=== PATIENT | female | born 1935 | race Caucasian/White ===

== ENCOUNTER 2017-08-28 10:39 | Outpatient (CLI) | payer MEDICARE, OTHER ==
--- NOTE | 2017-08-28 20:40 | PRG ---
DATE OF SERVICE: 08/28/2017 HISTORY: Ms. Josseline Garcia is a very pleasant 82-year-old previously seen [facility] for an ulceration of the left posterior lower leg. The patient was last seen in the [facility] on 2014. The patient now presents with ulcerations of the right and left lower legs. The patient state s that the ulceration of her left lower leg has been present for 2 months. She states that the ulcer ation of her right lower leg has been present for 2 days and began after she bumped her right lower l eg against her walker. The patient has received wound care for her ulcerations by Physical Therapy gisele Espinal at [facility]. The patient states that she will now be receiving assistance with dressi ng changes by Home Health since she has been discharged from [facility]. PHYSICAL EXAMINATION: VITAL SIGNS: Temperature 97.6, pulse 61, respirations 18, blood pressure 172/78. EXTREMITIES: An ulceration of the right lateral lower leg is present, which measures approximately 0 .5 x 0.4 cm. An ulceration of the left lower leg is present, which measures approximately 0.9 x 0.8 cm. Granulation tissue is present within the margins of each wound. Necrotic and nonviable tissue p resent within the margins of each wound was debrided with an excisional full-thickness debridement wi th the use of a curet and scissors. No purulent drainage is associated with either wound. No cellul itis of the right or left lower leg is present. No maceration of the skin of the periwound of either wound is noted. A dorsalis pedis pulse is easily palpable on the right and on the left. Edema of t he right and left lower legs is present on exam today. ASSESSMENT AND PLAN: 1. Chronic venous hypertension with ulcers. Silverlon, Webril, and the 3M Coban two-layer compressi on system will be applied to the right and left feet and lower legs today. Orders will be transmitte d to Home Health for dressing changes of Silverlon, Webril, and the 3M Coban two-layer compression sy stem 1-2 times per week after cleansing and irrigation for the right and left lower leg ulcerations. I will see Ms. Garcia again in 4 weeks if her wounds are still present at this time. 2. Coronary artery disease. 3. Hypertension. 4. Sleep apnea. 5. Asthma/chronic obstructive pulmonary disease. 6. Gout. 7. Atrial fibrillation on chronic anticoagulation. 8. Congestive heart failure.
[2017-08-28] MEDS ORDERED: Sodium Chloride 0.9% 15 ML NEB ONE (21:21)
== END 2017-08-28 10:40 | disposition home or self-care (01) ==
LOC: WCC 10:39
PROVIDERS: ATTEND Family Medicine
DX: I87.312 Chronic venous hypertension (idiopathic) with ulcer of left lower extremity (principal); I25.10 Atherosclerotic heart disease of native coronary artery without angina pectoris; G47.30 Sleep apnea, unspecified; J44.9 Chronic obstructive pulmonary disease, unspecified; M10.9 Gout, unspecified; I48.91 Unspecified atrial fibrillation; I11.0 Hypertensive heart disease with heart failure; I50.9 Heart failure, unspecified; Z79.01 Long term (current) use of anticoagulants
CPT/HCPCS: A4218

== ENCOUNTER 2018-02-27 17:18 | Inpatient (IN) | payer MEDICARE, OTHER ==
[2018-02-27 18:02] LABS: #Eosinphils 0.2 thou/uL (0.0-0.7); #Monocytes 0.6 thou/uL (0.11-0.59); #Neutrophils 4.2 thou/uL (1.40-6.50); %Basophils 0.4 % (0.0-1.0); %Eosinophils 3.3 % (0.0-10.0); %Lymphocytes 16.2 % (21.0-51.0); %Monocytes 9.4 % (0.0-10.0); %Neutrophils 70.6 % (42.0-75.0); Hemoglobin 12.5 g/dL (12.0-16.0); Mean Corpuscular HGB CONC 33.1 g/dL (32.0-36.0); Mean Corpuscular Hemoglobin 32.8 pg (27.0-31.0); Mean Platelet Volume 7.1 fL (7.4-10.4); Platelet Count 192 thou/uL (130-400); RBC Distribution Width 13.9 % (11.5-14.5); Red Blood Cell (RBC) Count 3.82 mill/uL (4.20-5.40)
[2018-02-27 18:20] LABS: Anion Gap 12 mmol/L (10-20); BUN (Urea Nitrogen) 8 mg/dL (9.8-20.1); Calc. Creatinine Clearance 0 mL/min (70-130); Calcium 10.1 mg/dL (7.8-10.44); Carbon Dioxide 24 mmol/L (23-31); Chloride 108 mmol/L (98-107); Estimated GFR-MDRD Greater than 90; Glucose 91 mg/dL (83-110); Potassium 3.8 mmol/L (3.5-5.1); Sodium 140 mmol/L (136-145)
--- NOTE | 2018-02-27 18:20 | RAD ---
RADIOGRAPH CHEST 1 VIEW: Date: 02/27/18 Time: 5:17 p.m. HISTORY: 82-year-old female with cough and chest congestion. COMPARISON: 01/14/15 FINDINGS: Severe cardiomegaly. Tortuosity and ectasia of thoracic aorta. Sternotomy wires. At least two surgica l clips overlying the left side of the cardiac shadow. Previously demonstrated right subclavian centr al venous catheter has been removed. No other interval change. Diffuse mild bilateral pulmonary inte rstitial densities are again noted. These are probably chronic, but it is possible that there could b e acute mild pulmonary interstitial edema superimposed on the chronic changes. The cardiomegaly obscu res the medial aspects of the bilateral lower lung zones. No gross consolidation identified. Effaceme nt of lateral costophrenic angles bilaterally, similar to the prior study, and shaggy bilateral diaph ragmatic borders. No pneumothorax. No major interval change. IMPRESSION: 1. Severe cardiomegaly. 2. Mild bilateral interstitial changes. Uncertain whether chronic, acute interstitial edema, or a combination of both. 3. Ectasia and tortuosity of the thoracic aorta. 4. Bilateral pleural reactions: effusions vs thickening. 5. Findings are similar to 01/14/15. SIS [] POS: LEVI
[2018-02-27] MEDS ORDERED: Nitroglycerin 2% Ointment 1 INCH/1 GM Packet ONE (18:22)
[2018-02-27] MEDS ORDERED: Furosemide 40 MG/4 ML VIAL ONE (18:22)
[2018-02-27 18:24] LABS: Bilirubin Negative (Negative); Blood, Urine Small (Negative); Clarity CLEAR (Clear); Glucose, Urine (Dipstick) Negative (Negative); Leukocyte Moderate (Negative); Nitrite Negative (Negative); Protein, Urine (Dipstick) 100 mg/dL (Neg-Trace); Specific Gravity, Urine 1.015 (1.002-1.036); Urobilinogen 0.2 mg/dL (0.2-1.0); pH, Urine 7.5 (5.0-9.0)
[2018-02-27 18:27] LABS: Bacteria/HPF None Seen HPF (None Seen); Hyaline Casts/LPF 7-10 HYALINE CAST LPF (0-3 Hyaline); RBC/HPF 21-50 HPF (0-3); WBC/HPF 21-50 HPF (0-3)
[2018-02-27 18:38] LABS: Renal Epithelial None Seen HPF (0-3); Transitional Epithelial NONE SEEN HPF (0-3); Yeast-All Forms None Seen HPF (None Seen)
[2018-02-27] MEDS ORDERED: Ciprofloxacin 500 MG TAB ONE (19:43)
[2018-02-27] MEDS ORDERED: hydrALAZINE 20 MG/ML VIAL ONE (19:43)
[2018-02-27] MEDS ORDERED: Acetaminophen 325 MG TAB PO PRN (20:48)
[2018-02-27] MEDS ORDERED: Ondansetron HCl/PF 4 MG/2 ML Vial IVP PRN (20:48)
[2018-02-27] MEDS ORDERED: Cefepime 2 GM in Sodium Chloride 0.9% 100 ML IVPB SCH ×2 (21:00→23:59)
[2018-02-27] MEDS ORDERED: Labetalol HCl 100 MG/20 ML VIAL SLOW IVP PRN (21:27)
[2018-02-27] MEDS ORDERED: Gabapentin 300 MG CAP PO PRN (21:28)
[2018-02-27 21:58] LABS: Troponin I 0.017 ng/mL (< 0.028)
[2018-02-27] MEDS: Guaifenesin DM 100-10/5 ML UDCUP PO PRN (23:40)
--- NOTE | 2018-02-28 01:33 | HP ---
PRIMARY CARE PHYSICIAN: Yamilet Smith DO TIME OF EVALUATION: 08:40 p.m. CODE STATUS: DNR as verified with the patient and family. CHIEF COMPLAINT: Worsening shortness of breath and cough. HISTORY OF PRESENT ILLNESS: An 82-year-old female with past medical history of COPD, asthma, bronchitis, CHF, the patient has had worsening period of persistent cough, that is wet with a scant sputum production, the symptoms have been present for about 3 weeks, she has had three admissions to the hospital as per report to [facility], for diagnosis including pneumonia, UTI. After review of admission, the patient is discharged and returned to the hospital after 24 to 48 hours failing to p.o. antibiotics. The symptoms are severe, the patient has stable vital signs; however, she looks physically tired, and having difficulty to mobilize secretions and stay comfortable. Family members are supported with the last episode of fever was 2 days ago. REVIEW OF SYSTEMS: Constitutional: The patient had fever 2 days ago, chills, generalized weakness, respiratory cough, sputum production, difficulty breathing , especially with cough spells. Cardiovascular: No chest pain, no palpitations , shortness of breath, the blood pressure has been in the high side. Gastrointestinal: No nausea, no vomiting, no diarrhea. Patient reporting that she has had a bloated stomach. Central Nervous System: No dizziness, no headache. Not feeling lightheaded. Genitourinary: The patient reported burning on urination. Extremities: Bilateral leg swelling mostly on the left. All other systems reviewed were negative except for the findings mentioned above. PAST MEDICAL HISTORY: The patient has a history of hypertension, congestive heart failure, atrial fibrillation, hyperlipidemia, obesity, aortic valve stenosis, frequent UTIs. PAST SURGICAL HISTORY: The patient has a history of cataract surgery, colonoscopy., appendectomy, CABG 20 years ago x3 vessels, orthopedic surgery, bilateral knee surgery, tonsillectomy. SOCIAL HISTORY: No alcohol, no drugs, no smoking history. ALLERGIES: ADVIL, DAYPRO, LORAZEPAM, PENICILLIN. FAMILY HISTORY: The patient reported her mother having CHF at the age of 71 and father having coronary artery disease. REPORTED MEDICATIONS: Calcium carbonate 200 mg 1 tablet 3 times a day, acetaminophen 500 mg q.6. hours p.r.n., allopurinol 300 mg once a day, albuterol 90 mcg every 4 hours p.r.n. with budesonide nebulizers 2 times a day, Coenzyme Q10 200 mg orally once a day, Eliquis 5 mg 2 times a day, Vasotec 20 mg once a day, fluoxetine 40 mg once a day, Lasix 40 mg once a day, gabapentin 300 mg once a day in the evening, levofloxacin 750 mg ordered 6 to 21 to take for 5 days, magnesium oxide 400 mg once a day, mupirocin 2% 3 times a day. PHYSICAL EXAMINATION: VITAL SIGNS: On presentation, the patient presented with very high blood pressure systolic over 200. The last hour recorded breathing was 195/81, heart rate 62, respiratory rate was 20, temperature 98.5. GENERAL: Patient is alert, in mild distress due to difficulty breathing, oriented. HEENT: Eyes: Normal conjunctivae. Moist oral mucosae. Anicteric. NECK: Bilateral JVD. RESPIRATORY: The patient has bilateral rales, wheezing. Symmetric expansion. CARDIOVASCULAR: Normal rate, hypertension, aortic murmur. EXTREMITIES: Bilateral leg edema. ABDOMEN: Soft. Normal bowel sounds. MUSCULOSKELETAL: Baseline range of motion and strength. No tenderness. SKIN: Warm and intact. No pallor, no rash, no redness. NEUROLOGIC: Baseline sensorium. No evidence of any new focal weakness. Baseline speech. Cranial nerves sensory intact. PSYCHIATRIC: Good mood, shady. Oriented, optimal judgment. LABORATORY AND DIAGNOSTIC DATA: Reviewed. The patient has a white count of 6.0 , hemoglobin 12.5, MCV 99, platelet count 192,000. Sodium 140, potassium 3.8, chloride 108, carbon dioxide 24, anion gap 12, BUN 8, GFR 90. Beta natriuretic peptide now 112. Urine was positive with white count 21-50. EKG was discussed with performing physician from ER and it showed RVVV, atrial fibrillation with controlled ventricular response on the rate of 87, no evidence of any acute ischemic event. Chest x-ray was reviewed, the patient has cardiomegaly with signs of congestion. ASSESSMENT AND PLAN: 1. Urinary tract infection, UA is positive, it looks like this is a recurrent problem, we will send cultures, start the patient on IV antibiotics, we will adjust treatment depending on sensitivity. We will not use Levaquin since patient was on that treatment prior to discharge and seemed to have remained the same. 2. Acute congestive heart failure exacerbation, we will place the patient on diuretics, reconsult home medications. Breathing treatment for symptoms improvement. 3. Physical deconditioning, likely secondary to congestive heart failure exacerbation and recurrent admissions, he is unsafe to discharge this patient at this point, we will order physical therapy for evaluation and treatment, patient may benefit from rehabilitation if she qualifies for it. 4. History of atrial fibrillation, heart rate is controlled, we are going to start home medications, tolerating anticoagulation. 5. History of hyperlipidemia, low cholesterol diet is advised. 6. Hypertensive urgency. No evidence of any acute organ damage, reconcile home medications, adjust as needed. IV p.r.n. medication for optimal control. 7. Obesity, advised to lose weight. 8. Deep venous thrombosis prophylaxis. Patient has reported that she had been offered aortic valve replacement in the past, our echo in the system is only showing mild aortic stenosis, with request records from [facility] to further address this problem, if no echo has been done recently, might be repeated. DEVON
[2018-02-28 05:25] LABS: #Eosinphils 0.2 thou/uL (0.0-0.7); #Lymphocytes 0.4 thou/uL (1.20-3.40); #Monocytes 0.2 thou/uL (0.11-0.59); #Neutrophils 8.6 thou/uL (1.40-6.50); %Eosinophils 1.7 % (0.0-10.0); %Lymphocytes 3.8 % (21.0-51.0); %Monocytes 2.2 % (0.0-10.0); %Neutrophils 92.3 % (42.0-75.0); Hemoglobin 13.3 g/dL (12.0-16.0); Mean Corpuscular HGB CONC 31.7 g/dL (32.0-36.0); Mean Corpuscular Hemoglobin 31.9 pg (27.0-31.0); Mean Platelet Volume 7.6 fL (7.4-10.4); Platelet Count 209 thou/uL (130-400); RBC Distribution Width 14.1 % (11.5-14.5); Red Blood Cell (RBC) Count 4.16 mill/uL (4.20-5.40); White Blood Cell (WBC) Count 9.3 thou/uL (4.8-10.8)
[2018-02-28 05:43] LABS: Anion Gap 14 mmol/L (10-20); BUN (Urea Nitrogen) 9 mg/dL (9.8-20.1); Calc. Creatinine Clearance 100 mL/min (70-130); Calcium 10.2 mg/dL (7.8-10.44); Carbon Dioxide 24 mmol/L (23-31); Chloride 107 mmol/L (98-107); Estimated GFR-MDRD Greater than 90; Glucose 94 mg/dL (83-110); Potassium 3.8 mmol/L (3.5-5.1); Sodium 141 mmol/L (136-145)
[2018-02-28] MEDS ORDERED: Sodium Chloride 0.9% 10 ML ONE (07:39)
[2018-02-28] MEDS ORDERED: Furosemide 40 MG/4 ML VIAL SLOW IVP SCH ×2 (07:45→09:00)
[2018-02-28 07:55] LABS: pH, Arterial 7.47 (7.35-7.45)
[2018-02-28 07:56] LABS: Actual Bicarbonate (HCO3a) 26.2 mEq/L (22-28); Base Excess (BEa) 2.6 mEq/L (-2.0 to +3.0); CO2 Tension 37.3 mmHg (35.0-45.0); Hemoglobin (Hb) 13.4 g/dL (12.0-16.0); O2 Tension (PaO2) 66.1 mmHg (> 60.0)
[2018-02-28 07:57] LABS: Calcium, Ionized 1.3 mmol/L (1.12-1.30); Puncture Site LRA
--- NOTE | 2018-02-28 08:31 | RAD ---
SINGLE VIEW CHEST: Date: 02/28/18 COMPARISON: 02/27/18. HISTORY: Congestive heart failure. FINDINGS: Single view of the chest shows an enlarged but stable cardiomediastinal silhouette. The patient is st atus post sternotomy. Increased interstitial lung markings are present. There is no evidence of conso lidation, mass, or pleural effusions. Degenerative changes and vertebroplasty cement are seen in the spine. IMPRESSION: Cardiomegaly without evidence of acute cardiopulmonary disease. POS: MANDEEPH
[2018-02-28] MEDS: Potassium Chloride 20 MEQ TAB PO SCH ×2 (09:40→21:52)
[2018-02-28] MEDS: Magnesium Oxide 400 MG TAB PO SCH (09:40)
[2018-02-28] MEDS: predniSONE 20 MG TAB PO SCH (09:41)
[2018-02-28] MEDS: FLUoxetine HCl 20 MG CAP PO SCH (09:41)
[2018-02-28] MEDS: Apixaban 5 MG TAB PO SCH ×2 (09:41→21:50)
[2018-02-28] MEDS: Fenofibrate Nanocrystallized 145 MG TAB PO SCH (09:42)
[2018-02-28] MEDS: Allopurinol 300 MG TAB PO SCH (09:42)
[2018-02-28] MEDS: Furosemide 40 MG/4 ML VIAL SLOW IVP SCH ×2 (09:43→21:51)
[2018-02-28] MEDS: Cefepime 2 GM in Sodium Chloride 0.9% 100 ML IVPB SCH ×2 (12:53→23:34)
--- NOTE | 2018-02-28 13:07 | PRG ---
DATE OF SERVICE: 02/28/2018 SUBJECTIVE: The patient is seen and examined at bedside. I was called this morning because of her s hortness of breath, she complains about. She denies any chest pain. She denies any chills. OBJECTIVE: VITAL SIGNS: Blood pressure is 178/74, pulse is 81, temperature is 98.6, respiratory rate 24, and pu lse oximetry is 99% on 2 liters by nasal cannula. HEENT: Head is atraumatic, normocephalic. Eyes are PERRLA. NECK: Supple. JVD plus. LUNGS: Breath sounds diminished at both bases with crackles bilaterally. HEART: S1, S2, somewhat distant. There is a systolic murmur 3/6 mostly audible at the right sternal border. ABDOMEN: Soft. Nontender. Bowel sounds are present, no organomegaly. EXTREMITIES: 1+ peripheral edema similar bilaterally. NEUROLOGIC: She is alert and oriented. She follows my commands. She moves all 4 extremities. LABORATORY DATA: Showed white count of 9.3, hemoglobin 13.3, platelet 209, hematocrit 41.9. ABGs sh owed pH of 7.47, pCO2 37, pO2 of 66.1. Chemistry showed normal electrolytes, creatinine of 0.56, BUN 9, glucose 94. Troponin 0.017. BNP from yesterday was 912. Microbiology: Blood cultures negative to date. IMPRESSION: 1. Increased shortness of breath, most likely multifactorial. There is some congestive heart failur e component and chronic obstructive pulmonary disease component, also she has quite severe aortic dorcas nosis. 2. History of atrial fibrillation. 3. Hypertension. 4. Hyperlipidemia. 5. Possible urinary tract infection. DISCUSSION: At this point, we are going to continue her antibiotic for presumed urinary tract infect ion. We do not have any urine cultures back. We will use more Lasix 40 mg twice a day. We will obt ain the chest x-ray. Get Cardiology and ceramic tile installer involved in her care. We will continue her Du oNebs. She is still hypoxic on 2 liters by nasal cannula, so we will increase the dose at the rate t o 3 liters. We will continue supportive care.
--- NOTE | 2018-02-28 14:34 | CON ---
DATE OF CONSULTATION: 02/28/2018 HISTORY OF PRESENT ILLNESS: The patient is an 82-year-old woman with a history of coronary bypass surgery and severe aortic stenosis, who presents for evaluation of recurrent dyspnea. The patient underwent coronary artery bypass graft surgery in 2005. She had a DAVISON placed to LAD, saphenous vein graft to an OM and RCA. The patient has developed a slowly progressive aortic stenosis. She also has a history of atrial fibrillation. The patient has undergone an evaluation for possible TAVR in [place]. The patient has declined to undergo this procedure. She has recently developed progressive dyspnea. She was hospitalized at [facility] several times with urinary tract infections. She recently was sent home with a Bishop catheter. She went home,and became dyspneic and presented with recurrent shortness of breath. The patient denies having any chest discomfort. PAST MEDICAL HISTORY: 1. Coronary artery disease. 2. Congestive heart failure. 3. Aortic stenosis. 4. Chronic atrial fibrillation. 5. Hypertension. 6. Obesity. 7. Hypertension. 8. Recurrent urinary tract infections. PAST SURGICAL HISTORY: Coronary artery bypass surgery, tonsillectomy, knee surgery. ALLERGIES: LORAZEPAM and PENICILLIN. SOCIAL HISTORY: Nonsmoker. MEDICATIONS: See nursing list. REVIEW OF SYSTEMS: Noticeable for increasing weakness, recurrent urinary tract infections, and progressive dyspnea. Ten-point system, otherwise, unremarkable. PHYSICAL EXAMINATION: GENERAL: This is an obese woman in mild distress. VITAL SIGNS: Blood pressure 178/74. NECK: Full. LUNGS: Have a few crackles bilateral. HEART: Irregular rate and rhythm, normal S1 and S2 with a 3/6 systolic murmur. ABDOMEN: Distended. EXTREMITIES: Showed trace edema. LABORATORY RESULTS: Her sodium is 141, potassium 3.8, chloride 107, bicarbonate 24, BUN 9, creatinine is 0.56. Her troponin was 0.017. White blood cell count is 9.3, hemoglobin 13.3, hematocrit 41.9, platelets 209. Her EKG revealed her to have atrial fibrillation with a right bundle branch block. IMPRESSION: 1. Congestive heart failure. 2. Critical aortic stenosis. 3. History of coronary artery bypass surgery x3. 4. Hypertension. 5. Chronic atrial fibrillation. 6. Obesity. 7. Recurrent urinary tract infections. 8. Dyslipidemia. This patient presents with congestive heart failure. She has declined to undergo a transcatheter aortic valve replacement. I again highly recommend she undergo this procedure. She is not an appropriate patient until her urinary tract infections have resolved. I have discussed her case with Dr. Jolly, who will hopefully guide her in treatment on for her urinary tract infection. If the urinary tract infection resolved, then hopefully she will reconsider and agree to proceed with transcatheter aortic valve replacement. The patient's prognosis is very guarded. DEVON
--- NOTE | 2018-02-28 20:03 | CON ---
DATE OF CONSULTATION: 02/28/2018 SERVICE: Pulmonary Medicine. REASON FOR CONSULTATION: Respiratory failure. HISTORY OF PRESENT ILLNESS: The patient is an 82-year-old white female with past medical history significant for severe to critical aortic stenosis. This was identified many years ago and followed for a period of time. She was recommended to undergo a valve surgery roughly a year ago. She did not want to pursue it at that time because she had some friends that had from valve surgery. Roughly one month ago, she started having increasing dyspnea on exertion. She uses CPAP at night and so she did not go on to develop the classic orthopnea type features associated with heart failure. She has been having severe leg swellings. In the past 4 weeks, she has been hospitalized on 5 separate occasions, both here and at [facility]. Along the way, they have treated her for pneumonia and discovered bacteria in her urine. That being said, at no point as she had a convincing infectious profile with fevers, purulent sputum production, or night sweats. Last night, she once again came into the hospital with difficulty breathing. Her blood pressures were quite elevated. She developed a flash pulmonary edema type picture. She has some difficulty breathing and was given a dose of Lasix. Overnight, she has made a profound recovery. The patient has been treated on and off for asthma her entire adult life. That being said, she has never really demonstrated convincing evidence to suggest that she needs to be on a daily inhaled medication. The last pulmonary function studies that she had were 6 weeks ago. I do not have the results of those for review because they were done in May in preparation for a possible valve surgery. PAST MEDICAL HISTORY: 1. Aortic stenosis, severe. 2. Hypertension. 3. Atrial fibrillation. 4. Dyslipidemia. 5. Obesity. 6. Obstructive sleep apnea. PAST SURGICAL HISTORY: 1. Cataract surgery. 2. Colonoscopy. 3. Appendectomy. 4. Coronary artery bypass graft in 1997, x3 vessels. 5. Knee surgeries, bilateral. 6. Tonsillectomy. ALLERGIES: ADVIL, LORAZEPAM, PENICILLIN, and DAYPRO. MEDICATIONS: List of her inpatient medications were reviewed. No specific updates were made at this time. SOCIAL HISTORY: Negative for alcohol, tobacco, or illicit drug use. She has no exposure to chemicals, dust, asbestos, or tuberculosis, currently. FAMILY HISTORY: Noncontributory. REVIEW OF SYSTEMS: General, head, ears, eyes, nose, throat, cardiovascular, respiratory, GI, , musculoskeletal, neurologic, and skin is negative except as mentioned in the HPI. PHYSICAL EXAMINATION: VITAL SIGNS: Afebrile, pulse 61, blood pressure 178/74, respirations 24, and saturation 100% on 2 liters nasal cannula. GENERAL: The patient is awake and alert. She is in no apparent distress. LUNGS: Excellent air entry. There is not really a prolonged expiratory phase, but I hear coarse wheezing and rhonchi. There is also bibasilar crackles present, which are more predominantly displayed in the right. HEART: Normal rate, regular. ABDOMEN: Soft, nontender, nondistended. Bowel sounds are positive. MUSCULOSKELETAL: No cyanosis or clubbing. She has got 2 to 3+ pitting in the bilateral lower extremities. GENITOURINARY: Bishop catheter in place. NEUROLOGIC: Grossly nonfocal. LABORATORY DATA: WBC 9.3, hemoglobin 13.3, platelets 209,000. PH 7.47, pCO2 of 37, pO2 of 66, on 28% FiO2 delivered via nasal cannula at that time. Basic metabolic profile is essentially unremarkable with a creatinine of 0.56. BNP 912, which is an historic high for her. Urinalysis is essentially unremarkable except for some red blood cells and white blood cells. Leukocyte esterase is moderately positive, but nitrites are unremarkable. There is no bacteria that were identified. Blood cultures x2 are negative to date. IMAGING DATA: Chest x-ray demonstrates cardiomegaly without evidence of acute cardiopulmonary abnormality. ASSESSMENT: 1. Acute hypoxic respiratory failure. 2. Acute diastolic and valvular heart failure. 3. Critical aortic stenosis. 4. Obstructive sleep apnea, compliant with CPAP therapy. DISCUSSION AND PLAN: I agree with diuresing the patient down to euvolemia. I see no convincing evidence that the patient has an acute infectious disease. That being said, it is reasonable to continue our empiric antibiotics while we await some cultures. If they are negative at 48 hours, I would recommend deescalating. I will continue scheduled DuoNebs for the time being. She is currently being treated for a COPD and/or asthma exacerbation. During this hospital stay, the patient really needs to decide whether or not she wants to pursue replacement of the aortic valve, or go home with hospice. Splitting the difference does not make much sense. I discussed this with the patient at bedside today. She is going to discuss with her family moving forward and decide truthfully what she wants to do. She understands that it is our job to support that decision whatever it happens to be. Pulmonary Critical Care will continue to follow along. 70 minutes have been devoted to this patient in various activities. I personally reviewed all imaging studies and laboratory data noted within this document. For fifty percent of this time, I was interacting with the patient at the bedside or coordinating care with the care team. For the remainder of the time I was immediately available to the patient in the hospital unit. DEVON
[2018-02-28] MEDS: Rosuvastatin 5 MG TAB PO SCH (21:51)
[2018-02-28] MEDS: HYDROcodone/Acetaminophen 10/325 mg Tablet PO PRN (22:19)
--- NOTE | 2018-03-01 06:31 | CON ---
DATE OF CONSULTATION: 02/28/2018 REASON FOR CONSULTATION: Concern with recurring urinary tract infections and planned aortic valve intervention. 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 In October, she had an episode of influenza A and she was admitted 2 or 3 times with sepsis, elevated lactate, tachycardia, some hypotension. One episode that was normal. Urinalysis with positive urine culture, the remainder episodes of urine cultures were negative. She had infiltrates, and in one of the episodes, there was evidence of cellulitis in the left lower extremity. The patient was always given the antimicrobial therapy with improvement and then released, and at this time, she is admitted with worsening dyspnea. Just following recent discharge from [facility], she developed persistence of cough and reportedly had some temperature elevation and chills 2 days before this admission. No headaches, no change in visual symptoms, sore throat, odynophagia , dysphagia. No chest pain, no abdominal pain, no diarrhea. She did have diarrhea previously, but C. diff test done was negative at beginning of this year. Bilateral lower extremity swelling. PAST MEDICAL HISTORY: Hypertension, CHF with severe aortic stenosis, prior episode of MRSA, endocarditis diagnosed via ANA and positive blood cultures, frequent urinary tract infections, at least abnormal urinalysis with positive cultures. She does have bladder prolapse and uterine prolapse, atrial fibrillation with Watchman procedure. PAST SURGICAL HISTORY: Includes cataract operation, colonoscopy, appendectomy, bypass graft surgery many years ago, orthopedic surgery with bilateral knee replacements. SOCIAL HISTORY: Never smoker, no alcoholic beverage. ALLERGIES: PENICILLIN, LORAZEPAM. FAMILY HISTORY: CHF, coronary artery disease. MEDICATIONS AT HOME: Calcium carbonate, acetaminophen, allopurinol, albuterol, budesonide, coenzyme Q, Eliquis, Vasotec, fluoxetine, Lasix, gabapentin, and had been taking levofloxacin. PHYSICAL EXAMINATION: VITAL SIGNS: Here in the hospital, T-max 98.6, and in the emergency room, the vital signs demonstrated a BP 195/81, pulse 63, temperature 98.5, O2 saturation 98%. SKIN: Remarkable for area of intergluteal erythema without obvious ulceration and the patient has a peripheral IV access. No pacemaker and she has a Bishop catheter inserted during this admission. HEENT: Ocular movements are conjugate. No periorbital edema. Oral cavity moist. NECK: Supple, without jugular distention. LUNGS: With symmetric air entry with faint basilar crackles. Systolic ejection murmur 2/6. HEART: S1, S2 with irregular rate. ABDOMEN: Soft, not distended or tender. No ascites. No bladder distention. EXTREMITIES: No joint inflammatory activity. She is able to move extremities, but she is diffusely weak. Plantar responses are indifferent. Pulses are 1+ in dorsalis pedis. NEUROLOGIC: She is awake, oriented, follows commands. LABORATORY DATA: White cell count 6.0 and 9.3, hemoglobin 12.5, platelets 192, 70% neutrophils and now 92% neutrophils. ABG, pH 7.47, pCO2 of 37, pO2 of 66. Chemistry with a sodium 141, creatinine 0.56. BNP 912. Urinalysis, 21-50 wbc's , 100 protein. We have a urine culture from 10/2016 and there are 2 sets of blood culture obtained on this admission, which are negative thus far. I do not see a urine culture submitted. ASSESSMENT: 1. Severe aortic stenosis, history of atrial fibrillation, prior Watchman procedure on chronic Eliquis, gout on chronic allopurinol, history of recurring episodes of cystitis in the past, bladder prolapse, uterine prolapse, prior cystoscopies without any significant findings. No evidence of nephrolithiasis. 2. 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 3. Persistent dyspnea and other respiratory symptoms. DISCUSSION: During the last 2 or 3 admissions at [facility] pt had negative urine cultures and the admissions were associated with respiratory symptoms, some transient temperature elevation during the first day of admission without persistence. The reports at [facility] identified pneumonia, UTI and cellulitis as the diagnoses. At this point, we do not have confirmatory evidence to suggest that she has an invasive urinary tract infection. We will need to verify that she has a normal post-void residuals after removal of Bishop catheter. She seems to be incontinent at home and may have high residuals or not. The presence of pyuria and bacteriuria per se are not necessarily an indication for antimicrobial therapy and she may have received excessive administration of antimicrobial therapy in the past for conditions which might have been secondary to alternate diagnoses. In terms of the management of perioperative risk of infection and cardiovascular procedures , there is not a consensus that antimicrobial therapy is helpful in prevention of infection following cardiovascular procedures in patients with bacteriuria. The evidence in fact seems to point to the finding that treating those cases does not reduce the infectious complications of cardiovascular procedures, in other words, the bacteria found in those patients does not lead to perioperative infections in patients who undergo valvular interventions. In this regard, I would evaluate her urinary findings and treat them only if there is evidence of any invasive process that is specifically patient has fever, leukocytosis, symptoms and signs of cystitis or pyelonephritis which she does not present at this point in time. DEVON
[2018-03-01] MEDS: Furosemide 40 MG/4 ML VIAL SLOW IVP SCH ×2 (10:21→21:35)
[2018-03-01] MEDS: Apixaban 5 MG TAB PO SCH ×2 (10:21→21:34)
[2018-03-01] MEDS: Magnesium Oxide 400 MG TAB PO SCH (10:22)
[2018-03-01] MEDS: Allopurinol 300 MG TAB PO SCH (10:22)
[2018-03-01] MEDS: FLUoxetine HCl 20 MG CAP PO SCH (10:22)
[2018-03-01] MEDS: predniSONE 20 MG TAB PO SCH (10:22)
[2018-03-01] MEDS: Potassium Chloride 20 MEQ TAB PO SCH ×2 (10:22→21:34)
[2018-03-01] MEDS: Fenofibrate Nanocrystallized 145 MG TAB PO SCH (10:23)
[2018-03-01] MEDS: Cefepime 2 GM in Sodium Chloride 0.9% 100 ML IVPB SCH ×2 (11:53→23:51)
[2018-03-01] MEDS ORDERED: hydrALAZINE 20 MG/ML VIAL SLOW IVP PRN (12:08)
--- NOTE | 2018-03-01 12:39 | PDOC.CTH ---
<ShelliedanyLynette Lexie - Last Filed: 03/01/18 12:43> Cardiology Progress Note - Subjective Patient SOB, but stable. No new issues. - ROS shortness of breath - Objective Vital Signs Temp Pulse Resp BP BP Pulse Ox 03/01/18 10:41 72 18 97 03/01/18 10:21 154/109 H 03/01/18 07:34 70 20 96 03/01/18 07:20 98.2 F 76 16 154/109 H 95 03/01/18 03:13 98.2 F 70 14 165/83 H 99 03/01/18 03:12 65 20 95 03/01/18 01:14 86 19 132/87 94 L 03/01/18 01:07 93 L Weight 186 lb 3.2 oz 02/28/18 03/01/18 03/02/18 06:59 06:59 06:59 Intake Total 460 1080 Output Total 425 2150 Balance 35 -1070 - Physical Examination General/Neuro: alert & oriented x3, NAD Neck: no JVD present Lungs: CTA Heart: other: (IRR) Abdomen: NT/ND Extremities: other: (no edema) - Telemetry Telemetry Rhythm: AFib - Labs Result Diagrams: 02/28/18 04:46 02/28/18 04:46 Troponin/CKMB Troponin I 0.017 ng/mL (< 0.028) 02/27/18 21:14 - Assessment/Plan 1. Critical 2. Chronic AF s/p Watchman and subsequent coilin 12/2016 and 04/2017. Remains on Eliquis 3. Recurrent UTIs Discussed case with patient and family. She is reconsidering TAVR in [place]. At this time will continue to treat acute symptoms and let ID treat UTI. <Nathan Purdy - Last Filed: 03/01/18 15:42> Cardiology Progress Note - Objective Vital Signs Temp Pulse Resp BP BP Pulse Ox 03/01/18 14:07 75 16 97 03/01/18 13:50 73 147/65 H 03/01/18 11:50 97.4 F L 72 18 188/79 H 03/01/18 10:41 72 18 97 03/01/18 10:21 154/109 H 03/01/18 08:02 98.2 F 75 16 95 03/01/18 07:34 70 20 96 03/01/18 07:20 98.2 F 76 16 154/109 H 95 Weight 186 lb 3.2 oz 02/28/18 03/01/18 03/02/18 06:59 06:59 06:59 Intake Total 460 1080 Output Total 425 2150 Balance 35 -1070 - Labs Result Diagrams: 02/28/18 04:46 02/28/18 04:46 Troponin/CKMB Troponin I 0.017 ng/mL (< 0.028) 02/27/18 21:14 - Assessment/Plan Pt seen and examined. Agree with the above. At this point, will need to address acute condition. May require skilled facility to increase mobility and strength.
[2018-03-01] MEDS ORDERED: cloNIDine 0.1 MG TAB PO PRN (12:57)
--- NOTE | 2018-03-01 15:20 | PDOC.PN ---
- Subjective Encounter Start Date: 03/01/18 Encounter Start Time: 09:40 Pt seen for followup re: UTI. Denies chest pain. Shortness of breath is better. No nausea or vomiting. No fevers. - Objective Vital Signs & Weight: Vital Signs (12 hours) Temp Pulse Resp BP BP Pulse Ox 03/01/18 14:07 75 16 97 03/01/18 13:50 73 147/65 H 03/01/18 11:50 97.4 F L 72 18 188/79 H 03/01/18 10:41 72 18 97 03/01/18 10:21 154/109 H 03/01/18 07:34 70 20 96 03/01/18 07:20 98.2 F 76 16 154/109 H 95 Weight Weight 186 lb 3.2 oz I&O: 02/28/18 03/01/18 03/02/18 06:59 06:59 06:59 Intake Total 460 1080 Output Total 425 2150 Balance 35 -1070 Result Diagrams: 02/28/18 04:46 02/28/18 04:46 Phys Exam - Physical Examination Constitutional: NAD HEENT: moist MMs, sclera anicteric, oral pharynx no lesions, 2+ tonsils Neck: no nodes, supple, full ROM JVD Respiratory: no wheezing, no rhonchi Ho crackles Cardiovascular: no rub, irregular S1, S2 Musculoskeletal: edema present Neurological: moves all 4 limbs Psychiatric: normal affect, A&O x 3 Dx/Plan (1) UTI (urinary tract infection) Status: Acute Comment: Continue IV cefepime, await cultures (2) CHF exacerbation Code(s): I50.9 - HEART FAILURE, UNSPECIFIED Status: Acute Qualifiers: Heart failure type: diastolic Qualified Code(s): I50.33 - Acute on chronic diastolic (congestive) heart failure Comment: continue IV furosemide. Pt is in a negative fluid balance (3) Aortic stenosis Code(s): I35.0 - NONRHEUMATIC AORTIC (VALVE) STENOSIS Status: Chronic Comment: plan for TAVR in [place] (4) HTN (hypertension) Code(s): I10 - ESSENTIAL (PRIMARY) HYPERTENSION Status: Chronic Comment: Monitor vital signs, titrate antihypertensives as needed (5) Dyslipidemia Code(s): E78.5 - HYPERLIPIDEMIA, UNSPECIFIED Status: Chronic Comment: continue statin - Plan * . Review of Systems - Review of Systems Constitutional: negative: fever, chills, sweats, weakness, malaise Respiratory: Shortness of Breath, SOB with Excertion. negative: Cough, Pleuritic Pain, Wheezing Cardiovascular: orthopnea. negative: chest pain, palpitations, paroxysmal nocturnal dyspnea, edema, light headedness Gastrointestinal: negative: Nausea, Vomiting, Abdominal Pain, Diarrhea, Constipation, Melena, Hematochezia Genitourinary: negative: Dysuria, Frequency, Incontinence, Hematuria, Retention Skin: negative: Rash, Lesions, Yomi, Bruising - Medications/Allergies Allergies/Adverse Reactions: Allergies Allergy/AdvReac Type Severity Reaction Status Date / Time hydralazine Allergy Severe Short of Verified 03/01/18 12:58 Breath ibuprofen [From Advil] Allergy Verified 02/28/18 00:18 lorazepam [From Ativan] Allergy Verified 02/28/18 00:18 oxaprozin [From Daypro] Allergy Verified 02/28/18 00:18 Penicillins Allergy Verified 02/28/18 00:18 Medications: Current Medications Acetaminophen (Tylenol) 650 mg PO Q4H PRN PRN Reason: Headache/Fever or Pain Hydrocodone Bitart/Acetaminophen ([place] 10/325) 1 tab PO Q6H PRN PRN Reason: Pain 7-10 Last Admin: 02/28/18 22:19 Dose: 1 tab Albuterol/Ipratropium (Duoneb) 3 ml NEB [id number] [facility] Last Admin: 03/01/18 14:07 Dose: 3 ml Allopurinol (Zyloprim) 300 mg PO QAM [facility] Last Admin: 03/01/18 10:22 Dose: 300 mg Apixaban (Eliquis) 5 mg PO BID [facility] Last Admin: 03/01/18 10:21 Dose: 5 mg Clonidine (Catapres) 0.1 mg PO Q4H PRN PRN Reason: SBP Greater Than 170 Enalapril Maleate (Vasotec) 20 mg PO BID [facility] Last Admin: 03/01/18 10:21 Dose: 20 mg Fenofibrate (Tricor) 145 mg PO DAILY [facility] Last Admin: 03/01/18 10:23 Dose: 145 mg Fluoxetine HCl (Prozac) 40 mg PO QAM [facility] Last Admin: 06/23/18 10:22 Dose: 40 mg Furosemide (Lasix) 40 mg SLOW IVP BID [facility] Last Admin: 03/01/18 10:21 Dose: 40 mg Gabapentin (Neurontin) 300 mg PO BID PRN PRN Reason: Pain 4-6 Guaifenesin/Dextromethorphan (Robitussin Dm) 15 ml PO Q4H PRN PRN Reason: Cough Last Admin: 02/27/18 23:40 Dose: 15 ml Cefepime HCl 2 gm/ Sodium (Chloride) 100 mls @ 200 mls/hr IVPB 1200,2359 [facility] Last Admin: 03/01/18 11:53 Dose: 100 mls Labetalol HCl (Normodyne) 10 mg SLOW IVP Q4H PRN PRN Reason: SBP Greater Than 180 Magnesium Oxide (Magnesium Oxide) 400 mg PO QAM [facility] Last Admin: 03/01/18 10:22 Dose: 400 mg Ondansetron HCl (Zofran) 4 mg IVP Q6H PRN PRN Reason: Nausea/Vomiting Pantoprazole Sodium (Protonix) 40 mg PO DAILY [facility] Last Admin: 03/01/18 10:22 Dose: 40 mg Potassium Chloride (K-Dur) 20 meq PO BID [facility] Last Admin: 03/01/18 10:22 Dose: 20 meq Prednisone (Prednisone) 40 mg PO QAM-WM [facility] Last Admin: 03/01/18 10:22 Dose: 40 mg Rosuvastatin Calcium (Crestor) 5 mg PO HS [facility] Last Admin: 02/28/18 21:51 Dose: 5 mg
[2018-03-01] MEDS ORDERED: Acetaminophen 500 MG TAB PO PRN (15:25)
[2018-03-01] MEDS ORDERED: Guaifenesin DM 100-10/5 ML UDCUP PO PRN (15:25)
[2018-03-01] MEDS ORDERED: Albuterol Sulfate 1.25 MG/3 ML NEB NEB PRN (15:25)
[2018-03-01] MEDS: Budesonide 0.5 MG/2 ML NEB NEB SCH (18:26)
--- NOTE | 2018-03-01 19:11 | PRG ---
DATE OF SERVICE: 03/01/2018 SERVICE: Pulmonary Medicine. INTERVAL HISTORY: The patient is doing great from a respiratory standpoint. She denies any current shortness of breath or chest discomfort. She was able to sit on the side of the bed during lunch tod ay. She actually walked to the door and back with some assistance. Otherwise, there has been no int erval change to her condition. PHYSICAL EXAMINATION: VITAL SIGNS: Afebrile, pulse 75, blood pressure 177/81, respirations 16, saturation 97% on 2 liters nasal cannula. GENERAL: The patient is awake, alert, in no apparent distress. LUNGS: Decent air entry. Dependent crackles are minimal. No prolonged expiratory phase or wheezing is appreciated. HEART: Normal rate, regular. ABDOMEN: Soft, nontender and nondistended. Bowel sounds are positive. MUSCULOSKELETAL: No cyanosis or clubbing. No pitting in the bilateral lower extremities. NEUROLOGIC: Grossly nonfocal. ASSESSMENT: 1. Acute hypoxic respiratory failure. 2. Acute diastolic and valvular heart failure. 3. Critical aortic stenosis. 4. Obstructive sleep apnea, compliant with CPAP therapy. DISCUSSION AND PLAN: We can continue to diurese the patient to euvolemia. I will repeat laboratorie s tomorrow morning including electrolytes with magnesium. I will increase the patient's mobility as much as she can tolerate. Hopefully, we will get her tuned up to the point where she can pursue a va lvular procedure in the outpatient setting.
[2018-03-01] MEDS: Mupirocin 2% Ointment 22 GM Tube TOP SCH (21:33)
[2018-03-01] MEDS: Rosuvastatin 5 MG TAB PO SCH (21:35)
[2018-03-01] MEDS: HYDROcodone/Acetaminophen 10/325 mg Tablet PO PRN (21:43)
[2018-03-02 06:00] LABS: Anion Gap 11 mmol/L (10-20); BUN (Urea Nitrogen) 12 mg/dL (9.8-20.1); Calc. Creatinine Clearance 90 mL/min (70-130); Calcium 9.2 mg/dL (7.8-10.44); Carbon Dioxide 29 mmol/L (23-31); Chloride 106 mmol/L (98-107); Estimated GFR-MDRD 90; Glucose 85 mg/dL (83-110); Magnesium 1.7 mg/dL (1.6-2.6); Potassium 4.1 mmol/L (3.5-5.1); Sodium 142 mmol/L (136-145)
[2018-03-02] MEDS: Budesonide 0.5 MG/2 ML NEB NEB SCH ×2 (07:13→19:21)
[2018-03-02] MEDS: Furosemide 40 MG/4 ML VIAL SLOW IVP SCH ×2 (09:15→21:19)
[2018-03-02] MEDS: Polyethylene Glycol 3350 17 GM Packet PO SCH (09:15)
[2018-03-02] MEDS: predniSONE 20 MG TAB PO SCH (09:15)
[2018-03-02] MEDS: Fenofibrate Nanocrystallized 145 MG TAB PO SCH (09:16)
[2018-03-02] MEDS: Oxybutynin 5 MG TAB PO SCH (09:16)
[2018-03-02] MEDS: Magnesium Oxide 400 MG TAB PO SCH (09:16)
[2018-03-02] MEDS: FLUoxetine HCl 20 MG CAP PO SCH (09:16)
[2018-03-02] MEDS: Allopurinol 300 MG TAB PO SCH (09:17)
[2018-03-02] MEDS: Lactinex Tablet PO SCH (09:17)
[2018-03-02] MEDS: Mupirocin 2% Ointment 22 GM Tube TOP SCH ×3 (09:17→21:19)
[2018-03-02] MEDS: Potassium Chloride 20 MEQ TAB PO SCH ×2 (09:17→21:20)
[2018-03-02] MEDS: Ubidecarenone 50 MG CAP PO SCH (09:17)
[2018-03-02] MEDS: Apixaban 5 MG TAB PO SCH ×2 (09:17→21:20)
[2018-03-02] MEDS: Cefepime 2 GM in Sodium Chloride 0.9% 100 ML IVPB SCH (11:44)
--- NOTE | 2018-03-02 12:20 | PDOC.CTH ---
Cardiology Progress Note - Subjective Feels ok, but still SOB/dyspnic. - Objective Vital Signs Temp Pulse Resp BP Pulse Ox 03/02/18 11:43 98.1 F 71 18 153/68 H 99 03/02/18 10:57 67 16 95 03/02/18 08:15 99.1 F 69 18 100 03/02/18 08:14 99.1 F 69 18 167/74 H 100 03/02/18 07:14 16 03/02/18 07:13 16 03/02/18 03:18 97.9 F 71 16 112/56 L 95 03/02/18 01:16 62 16 Weight 186 lb 3.2 oz 03/01/18 03/02/18 03/03/18 06:59 06:59 06:59 Intake Total 1080 920 Output Total 2150 2150 Balance -1070 -1230 - Physical Examination General/Neuro: alert & oriented x3 Neck: no JVD present Lungs: other: (few rales) Heart: RRR Abdomen: NT/ND Extremities: other: (no edema) - Labs Result Diagrams: 02/28/18 04:46 03/02/18 04:22 Troponin/CKMB Troponin I 0.017 ng/mL (< 0.028) 02/27/18 21:14 - Assessment/Plan 1. Acute systolic CHF 2. Critical 3. Chronic AF s/p Watchman and subsequent coiling 12/2016 and 04/2017. Remains on Eliquis. ? possible leak around coiling? 4. Recurrent UTIs Continue diuresis. Plan for outpatient TAVR post-discharge if patient agreeable.
[2018-03-02] MEDS: Calcium Carbonate 500 MG ChewTAB PO PRN ×2 (13:14→21:20)
[2018-03-02] MEDS: Guaifenesin DM 100-10/5 ML UDCUP PO PRN (13:14)
[2018-03-02] MEDS ORDERED: Mag-Al 1200 mg/1200 mg/30 ML UDCUP PO PRN (18:25)
--- NOTE | 2018-03-02 19:43 | PRG ---
DATE OF SERVICE: 03/02/2018 SERVICE: Pulmonary Medicine. INTERVAL HISTORY: The patient is doing fine from a respiratory standpoint. She is wheezing a little bit today. She is coughing some, but not bringing up any sputum. She had a good night. She used her CPAP last night. OBJECTIVE: VITAL SIGNS: Afebrile with T-max of 99.3, pulse 73, blood pressure 141/64, respirations 18, saturation 99% on 2 liters nasal cannula. GENERAL: The patient is awake, alert, no apparent distress. LUNGS: Decent air entry. Crackles and wheezing are both present. There is rhonchi, but they clear with cough. HEART: Normal rate, regular. ABDOMEN: Soft, nontender, nondistended. Bowel sounds are positive. MUSCULOSKELETAL: No cyanosis or clubbing. There is no pitting in the bilateral lower extremities. NEUROLOGIC: Grossly nonfocal. LABORATORY DATA: WBC 9.3, hemoglobin 13.3, platelets 209,000. Basic metabolic profile is essentially unremarkable. Creatinine is stable at 0.63. Magnesium 1.7. ASSESSMENT: 1. Acute hypoxic respiratory failure. 2. Acute diastolic and valvular heart failure. 3. Critical aortic stenosis. 4. Obstructive sleep apnea, compliant with CPAP therapy. DISCUSSION AND PLAN: The patient is pretty close to euvolemia. We will continue to mobilize the patient as much as tolerated. Ultimately, the patient has decided to try to pursue a valvular surgery if she is still a candidate for that. Pulmonary will continue to follow as she is at increased risk of fairly abrupt decompensations. Nebulized medications and other supportive care will be continued. MTDD
[2018-03-02] MEDS: Rosuvastatin 5 MG TAB PO SCH (21:20)
--- NOTE | 2018-03-02 23:29 | PDOC.PN ---
- Subjective Encounter Start Date: 03/02/18 Encounter Start Time: 17:00 Patient seen and examined for CHF. No new complaints. No overnight events. SOB improving. - Objective MAR Reviewed: Yes Vital Signs & Weight: Vital Signs (12 hours) Temp Pulse Resp BP BP Pulse Ox 03/02/18 22:30 65 16 93 L 03/02/18 21:20 168/69 H 03/02/18 20:00 99.1 F 81 20 168/69 H 99 03/02/18 19:15 72 18 97 03/02/18 15:58 99.3 F 73 18 141/64 H 99 03/02/18 14:17 63 16 93 L 03/02/18 11:43 98.1 F 71 18 153/68 H 99 Weight Weight 186 lb 3.2 oz I&O: 03/01/18 03/02/18 03/03/18 06:59 06:59 06:59 Intake Total 4910 740 9735 Output Total 2150 2150 1925 Balance -8749 -1230 -405 Result Diagrams: 02/28/18 04:46 03/03/18 04:29 EKG Reviewed by me: Yes (Tele Afib, NSVT) Phys Exam - Physical Examination Constitutional: NAD Respiratory: no wheezing, no rhonchi Bibasilar rales Cardiovascular: no rub, irregular Gastrointestinal: soft, non-tender, positive bowel sounds Neurological: moves all 4 limbs Dx/Plan (1) Diastolic CHF, acute on chronic Code(s): I50.33 - ACUTE ON CHRONIC DIASTOLIC (CONGESTIVE) HEART FAILURE Status : Acute (2) UTI (urinary tract infection) Status: Acute (3) Aortic stenosis Code(s): I35.0 - NONRHEUMATIC AORTIC (VALVE) STENOSIS Status: Chronic Comment: plan for TAVR in [place] (4) HTN (hypertension) Code(s): I10 - ESSENTIAL (PRIMARY) HYPERTENSION Status: Chronic Comment: Monitor vital signs, titrate antihypertensives as needed (5) Urinary retention Code(s): R33.9 - RETENTION OF URINE, UNSPECIFIED Status: Acute Comment: with chronic [place] placed at [facility] prior to dc (6) NSVT (nonsustained ventricular tachycardia) Code(s): I47.2 - VENTRICULAR TACHYCARDIA Status: Acute - Plan PT/OT Change Cefepime to Meropenem -: AM labs including Magnessium -: Consult ID -: Cont diuresis, Cont current meds as below Review of Systems - Review of Systems Constitutional: negative: fever, chills, sweats, weakness, malaise, other Gastrointestinal: negative: Nausea, Vomiting, Abdominal Pain, Diarrhea, Constipation, Melena, Hematochezia, Other - Medications/Allergies Allergies/Adverse Reactions: Allergies Allergy/AdvReac Type Severity Reaction Status Date / Time hydralazine Allergy Severe Short of Verified 03/01/18 12:58 Breath ibuprofen [From Advil] Allergy Verified 02/28/18 00:18 lorazepam [From Ativan] Allergy Verified 02/28/18 00:18 oxaprozin [From Daypro] Allergy Verified 02/28/18 00:18 Penicillins Allergy Verified 02/28/18 00:18 Medications: Current Medications Acetaminophen (Tylenol) 650 mg PO Q4H PRN PRN Reason: Headache/Fever Acetaminophen (Tylenol) 1,000 mg PO Q6HR PRN PRN Reason: Pain Hydrocodone Bitart/Acetaminophen ([place] 10/325) 1 tab PO Q6H PRN PRN Reason: Pain 7-10 Last Admin: 03/01/18 21:43 Dose: 1 tab Acidophilus (Floranex) 1 tab PO DAILY [facility] Last Admin: 03/02/18 09:17 Dose: 1 tab Al Hydroxide/Mg Hydroxide (Maalox) 30 ml PO Q6H PRN PRN Reason: Heartburn or Indigestion Albuterol Sulfate (Albuterol Sulfate) 0.63 mg NEB Q4HR PRN PRN Reason: Wheezing Albuterol/Ipratropium (Duoneb) 3 ml NEB [id number] [facility] Last Admin: 03/02/18 22:30 Dose: 3 ml Allopurinol (Zyloprim) 300 mg PO QAM [facility] Last Admin: 03/02/18 09:17 Dose: 300 mg Apixaban (Eliquis) 5 mg PO BID [facility] Last Admin: 03/02/18 21:20 Dose: 5 mg Budesonide (Pulmicort Neb Solution) 0.5 mg NEB BID-RT [facility] Last Admin: 03/02/18 19:21 Dose: 0.5 mg Calcium Carbonate (Tums) 500 mg PO TID PRN PRN Reason: Indigestion Last Admin: 03/02/18 21:20 Dose: 500 mg Clonidine (Catapres) 0.1 mg PO Q4H PRN PRN Reason: SBP Greater Than 170 Coenzyme Q10 (Coenzyme Q10) 200 mg PO DAILY [facility] Last Admin: 03/02/18 09:17 Dose: 200 mg Enalapril Maleate (Vasotec) 20 mg PO BID [facility] Last Admin: 03/02/18 21:20 Dose: 20 mg Fenofibrate (Tricor) 145 mg PO DAILY [facility] Last Admin: 03/02/18 09:16 Dose: 145 mg Fluoxetine HCl (Prozac) 40 mg PO QAM [facility] Last Admin: 03/02/18 09:16 Dose: 40 mg Furosemide (Lasix) 40 mg SLOW IVP BID [facility] Last Admin: 03/02/18 21:19 Dose: 40 mg Gabapentin (Neurontin) 300 mg PO BID PRN PRN Reason: Pain 4-6 Guaifenesin/Dextromethorphan (Robitussin Dm) 5 ml PO Q4HR PRN PRN Reason: Cough Cefepime HCl 2 gm/ Sodium (Chloride) 100 mls @ 200 mls/hr IVPB 1200,2359 [facility] Last Admin: 03/02/18 11:44 Dose: 100 mls Labetalol HCl (Normodyne) 10 mg SLOW IVP Q4H PRN PRN Reason: SBP Greater Than 180 Magnesium Oxide (Magnesium Oxide) 400 mg PO QAM [facility] Last Admin: 03/02/18 09:16 Dose: 400 mg Mupirocin (Bactroban 2% Ointment) 0 gm TOP TID [facility] Last Admin: 03/02/18 21:19 Dose: 1 applic Ondansetron HCl (Zofran) 4 mg IVP Q6H PRN PRN Reason: Nausea/Vomiting Oxybutynin Chloride (Ditropan) 10 mg PO DAILY [facility] Last Admin: 03/02/18 09:16 Dose: 10 mg Pantoprazole Sodium (Protonix) 40 mg PO HS [facility] Last Admin: 03/02/18 21:21 Dose: 40 mg Polyethylene Glycol (Miralax) 17 gm PO DAILY [facility] Last Admin: 03/02/18 09:15 Dose: 17 gm Potassium Chloride (K-Dur) 20 meq PO BID [facility] Last Admin: 03/02/18 21:20 Dose: 20 meq Prednisone (Prednisone) 40 mg PO QAM[facility] Last Admin: 03/02/18 09:15 Dose: 40 mg Rosuvastatin Calcium (Crestor) 5 mg PO [facility] Last Admin: 03/02/18 21:20 Dose: 5 mg
[2018-03-03] MEDS: Cefepime 2 GM in Sodium Chloride 0.9% 100 ML IVPB SCH
[2018-03-03 05:18] LABS: Anion Gap 12 mmol/L (10-20); BUN (Urea Nitrogen) 20 mg/dL (9.8-20.1); Calc. Creatinine Clearance 84 mL/min (70-130); Calcium 9.6 mg/dL (7.8-10.44); Carbon Dioxide 26 mmol/L (23-31); Chloride 107 mmol/L (98-107); Estimated GFR-MDRD 83; Glucose 98 mg/dL (83-110); Magnesium 1.7 mg/dL (1.6-2.6); Potassium 4.2 mmol/L (3.5-5.1); Sodium 141 mmol/L (136-145)
[2018-03-03] MEDS: Budesonide 0.5 MG/2 ML NEB NEB SCH ×2 (07:26→19:12)
[2018-03-03] MEDS ORDERED: Meropenem 1 GM in Sodium Chloride 0.9% 100 ML IVPB SCH (08:00)
[2018-03-03] MEDS: predniSONE 20 MG TAB PO SCH (08:17)
[2018-03-03] MEDS: Apixaban 5 MG TAB PO SCH ×2 (08:18→20:18)
[2018-03-03] MEDS: Allopurinol 300 MG TAB PO SCH (08:18)
[2018-03-03] MEDS: Fenofibrate Nanocrystallized 145 MG TAB PO SCH (08:19)
[2018-03-03] MEDS: Lactinex Tablet PO SCH (08:19)
[2018-03-03] MEDS: FLUoxetine HCl 20 MG CAP PO SCH (08:19)
[2018-03-03] MEDS: Magnesium Oxide 400 MG TAB PO SCH (08:20)
[2018-03-03] MEDS: Ubidecarenone 50 MG CAP PO SCH (08:20)
[2018-03-03] MEDS: Mupirocin 2% Ointment 22 GM Tube TOP SCH ×3 (08:20→20:29)
[2018-03-03] MEDS: Oxybutynin 5 MG TAB PO SCH (08:20)
[2018-03-03] MEDS: Potassium Chloride 20 MEQ TAB PO SCH ×2 (08:20→20:19)
[2018-03-03] MEDS: Polyethylene Glycol 3350 17 GM Packet PO SCH (08:20)
[2018-03-03] MEDS: Furosemide 40 MG/4 ML VIAL SLOW IVP SCH ×2 (08:23→20:20)
[2018-03-03] MEDS ORDERED: Magnesium 2 GM/NS 0.9% 100 ML 2 GM in Premix Bag 1 BAG IVPB SCH (08:30)
[2018-03-03] MEDS ORDERED: Magnesium Sulfate 2 GM in Sodium Chloride 0.9% 100 ML IVPB SCH (10:00)
[2018-03-03 12:55] VITALS: BMI 27.8
--- NOTE | 2018-03-03 13:55 | PDOC.CTH ---
Cardiology Progress Note - Subjective Patient with c/o indegestion. No CP/SOB or palpitations. Short run NSVT yesterday afternoon. - Objective Vital Signs Temp Pulse Pulse Pulse Resp BP BP 03/03/18 11:34 97.7 F 73 17 03/03/18 11:00 73 64 140/65 03/03/18 10:38 61 18 03/03/18 08:16 98.3 F 61 18 03/03/18 07:27 03/03/18 07:25 62 18 03/03/18 03:45 193/81 H 03/03/18 03:31 98.3 F 68 19 03/03/18 02:44 67 16 BP BP Pulse Ox Pulse Ox Pulse Ox Pulse Ox 03/03/18 11:34 140/65 95 03/03/18 11:00 130/61 93 L 95 88 L 03/03/18 10:38 95 03/03/18 08:16 151/66 H 95 03/03/18 07:27 98 03/03/18 07:25 98 03/03/18 03:45 03/03/18 03:31 193/81 H 94 L 03/03/18 02:44 Admit Weight 184 lb 1.6 oz Weight 167 lb 8 oz 03/02/18 03/03/18 03/04/18 06:59 06:59 06:59 Intake Total 920 1820 600 Output Total 2150 3200 Balance -1230 -1380 600 - Physical Examination General/Neuro: alert & oriented x3 Neck: no JVD present Lungs: CTA Heart: other: (IRR) Abdomen: NT/ND Extremities: other: (no edema) - Telemetry Telemetry Rhythm: Afib - Labs Result Diagrams: 02/28/18 04:46 03/03/18 04:29 Troponin/CKMB Troponin I 0.017 ng/mL (< 0.028) 02/27/18 21:14 - Assessment/Plan 1. Acute systolic CHF 2. Critical 3. Chronic AF s/p Watchman and subsequent coiling 12/2016 and 04/2017. Remains on Eliquis. Unsure if she ever had confirmatory testing for closure. 4. Recurrent UTIs 5. CAD 6. NSVT Last ECHO 05/2017 showed critical with normal EF. Given new VT, will repeat ECHO to see if EF now depressed. May need ischemic work-up as outpatient prior to valve. Continue current medications.
--- NOTE | 2018-03-03 15:25 | PRG ---
DATE OF SERVICE: 03/03/2018 SUBJECTIVE: Ms. Garcia's events over the weekend have been reviewed. PHYSICAL EXAMINATION: VITAL SIGNS: She is afebrile, heart rate 64, respiratory rate 16, oximetry is 90% on room air, blood pressure 140/65. LUNGS: Clear. HEART: Regular rhythm. S1 and S2 are normal. She has a grade 3/6 systolic murmur. ABDOMEN: Soft. IMPRESSION: 1. Cardiogenic pulmonary edema with critical aortic stenosis being evaluated for TAVR in [place]. 2. History of endocarditis. 3. History of urinary tract infections with a recent indwelling Bishop. Her son tells me her recent urine culture at [facility] was negative. She has been followed by Dr. Jolly. 4. History of asthma with a component of obstructive lung disease. 4. History of pneumonia in 2014. PLAN: Continue per the yard conductor. Primary issue is her aortic stenosis. She is being evaluated for a bladder suspension at [facility], but obviously this cannot be done in my opinion until he r aortic stenosis issues are resolved.
[2018-03-03] MEDS ORDERED: MEROPENEM 1 GM/50 ML 1 GM in Premix Bag 1 BAG IVPB SCH (16:00)
[2018-03-03] MEDS: Rosuvastatin 5 MG TAB PO SCH (20:18)
[2018-03-03] MEDS: HYDROcodone/Acetaminophen 10/325 mg Tablet PO PRN (20:19)
[2018-03-03] MEDS: Calcium Carbonate 500 MG ChewTAB PO PRN (20:20)
--- NOTE | 2018-03-03 22:43 | PDOC.PN ---
- Subjective Encounter Start Date: 03/03/18 Encounter Start Time: 18:00 Patient seen and examined for CHF/UTI. No new complaints. SOB improving. No overnight events - Objective MAR Reviewed: Yes Vital Signs & Weight: Vital Signs (12 hours) Temp Pulse Pulse Pulse Resp BP BP 03/03/18 20:19 97.7 F 75 18 03/03/18 20:18 126/60 03/03/18 19:11 69 16 03/03/18 15:15 64 16 03/03/18 14:55 97.9 F 64 16 03/03/18 11:34 97.7 F 73 17 03/03/18 11:00 73 64 140/65 BP BP Pulse Ox Pulse Ox Pulse Ox Pulse Ox 03/03/18 20:19 126/60 96 03/03/18 20:18 03/03/18 19:11 96 03/03/18 15:15 94 L 03/03/18 14:55 120/58 L 98 03/03/18 11:34 140/65 95 03/03/18 11:00 130/61 93 L 95 88 L Weight Admit Weight 184 lb 1.6 oz Weight 167 lb 8 oz I&O: 03/02/18 03/03/18 03/04/18 06:59 06:59 06:59 Intake Total 920 1820 1425 Output Total 2150 3200 1000 Balance -1230 -1380 425 Result Diagrams: 03/04/18 04:13 03/04/18 04:13 EKG Reviewed by me: Yes (Tele Afib) Phys Exam - Physical Examination Constitutional: NAD Respiratory: no wheezing, no rhonchi Cardiovascular: no rub, irregular Gastrointestinal: non-tender, positive bowel sounds Musculoskeletal: no edema Neurological: moves all 4 limbs Dx/Plan (1) Diastolic CHF, acute on chronic Code(s): I50.33 - ACUTE ON CHRONIC DIASTOLIC (CONGESTIVE) HEART FAILURE Status : Acute Comment: improving (2) UTI (urinary tract infection) Status: Acute Comment: No cultures sent on admission (3) Aortic stenosis Code(s): I35.0 - NONRHEUMATIC AORTIC (VALVE) STENOSIS Status: Chronic Comment: plan for TAVR in [place] (4) HTN (hypertension) Code(s): I10 - ESSENTIAL (PRIMARY) HYPERTENSION Status: Chronic Comment: Monitor vital signs, titrate antihypertensives as needed (5) Urinary retention Code(s): R33.9 - RETENTION OF URINE, UNSPECIFIED Status: Acute Comment: with chronic salinas placed at [facility] prior to dc (6) NSVT (nonsustained ventricular tachycardia) Code(s): I47.2 - VENTRICULAR TACHYCARDIA Status: Acute - Plan PT/OT, respiratory therapy, out of bed/ambulate Reduce Prednisone to 20 mg daily and probably dc in 1-2 days -: Atbx dced by Dr Jolly -: Consult Urology Dr Webster - Patients primary Urologist (per family request -: Await repeat Echo, AM labs Review of Systems - Review of Systems Respiratory: negative: Cough, Dry, Shortness of Breath, Hemoptysis, SOB with Excertion, Pleuritic Pain, Sputum, Wheezing Cardiovascular: negative: chest pain, palpitations, orthopnea, paroxysmal nocturnal dyspnea, edema, light headedness, other - Medications/Allergies Allergies/Adverse Reactions: Allergies Allergy/AdvReac Type Severity Reaction Status Date / Time hydralazine Allergy Severe Short of Verified 03/01/18 12:58 Breath ibuprofen [From Advil] Allergy Verified 02/28/18 00:18 lorazepam [From Ativan] Allergy Verified 02/28/18 00:18 oxaprozin [From Daypro] Allergy Verified 02/28/18 00:18 Penicillins Allergy Verified 02/28/18 00:18 Medications: Current Medications Acetaminophen (Tylenol) 650 mg PO Q4H PRN PRN Reason: Headache/Fever Last Admin: 03/03/18 02:07 Dose: 650 mg Acetaminophen (Tylenol) 1,000 mg PO Q6HR PRN PRN Reason: Pain Hydrocodone Bitart/Acetaminophen ([place] 10/325) 1 tab PO Q6H PRN PRN Reason: Pain 7-10 Last Admin: 03/03/18 20:19 Dose: 1 tab Acidophilus (Floranex) 1 tab PO DAILY XIOMARA Last Admin: 03/03/18 08:19 Dose: 1 tab Al Hydroxide/Mg Hydroxide (Maalox) 30 ml PO Q6H PRN PRN Reason: Heartburn or Indigestion Albuterol Sulfate (Albuterol Sulfate) 0.63 mg NEB Q4HR PRN PRN Reason: Wheezing Albuterol/Ipratropium (Duoneb) 3 ml NEB [id number] XIOMARA Last Admin: 03/03/18 19:11 Dose: 3 ml Allopurinol (Zyloprim) 300 mg PO QAM [facility] Last Admin: 03/03/18 08:18 Dose: 300 mg Apixaban (Eliquis) 5 mg PO BID [facility] Last Admin: 03/03/18 20:18 Dose: 5 mg Budesonide (Pulmicort Neb Solution) 0.5 mg NEB BID-RT [facility] Last Admin: 03/03/18 19:12 Dose: 0.5 mg Calcium Carbonate (Tums) 500 mg PO TID PRN PRN Reason: Indigestion Last Admin: 03/03/18 20:20 Dose: 500 mg Clonidine (Catapres) 0.1 mg PO Q4H PRN PRN Reason: SBP Greater Than 170 Last Admin: 03/03/18 03:45 Dose: 0.1 mg Coenzyme Q10 (Coenzyme Q10) 200 mg PO DAILY [facility] Last Admin: 03/03/18 08:20 Dose: 200 mg Enalapril Maleate (Vasotec) 20 mg PO BID [facility] Last Admin: 03/03/18 20:18 Dose: 20 mg Fenofibrate (Tricor) 145 mg PO DAILY [facility] Last Admin: 03/03/18 08:19 Dose: 145 mg Fluoxetine HCl (Prozac) 40 mg PO QAM [facility] Last Admin: 03/03/18 08:19 Dose: 40 mg Furosemide (Lasix) 40 mg SLOW IVP BID [facility] Last Admin: 03/03/18 20:20 Dose: 40 mg Gabapentin (Neurontin) 300 mg PO BID PRN PRN Reason: Pain 4-6 Guaifenesin/Dextromethorphan (Robitussin Dm) 5 ml PO Q4HR PRN PRN Reason: Cough Labetalol HCl (Normodyne) 10 mg SLOW IVP Q4H PRN PRN Reason: SBP Greater Than 180 Magnesium Oxide (Magnesium Oxide) 400 mg PO QAM [facility] Last Admin: 03/03/18 08:20 Dose: 400 mg Miscellaneous Medication (Pharmacy To Dose) 0 each IVPB ASDIR PRN PRN Reason: Pharmacy to Dose RENALLY ADJUS Mupirocin (Bactroban 2% Ointment) 0 gm TOP TID [facility] Last Admin: 03/03/18 20:29 Dose: 1 applic Ondansetron HCl (Zofran) 4 mg IVP Q6H PRN PRN Reason: Nausea/Vomiting Oxybutynin Chloride (Ditropan) 10 mg PO DAILY [facility] Last Admin: 03/03/18 08:20 Dose: 10 mg Pantoprazole Sodium (Protonix) 40 mg PO HS [facility] Last Admin: 03/03/18 20:18 Dose: 40 mg Polyethylene Glycol (Miralax) 17 gm PO DAILY [facility] Last Admin: 03/03/18 08:20 Dose: 17 gm Potassium Chloride (K-Dur) 20 meq PO BID [facility] Last Admin: 03/03/18 20:19 Dose: 20 meq Prednisone (Prednisone) 40 mg PO QAM[facility] Last Admin: 03/03/18 08:17 Dose: 40 mg Rosuvastatin Calcium (Crestor) 5 mg PO HS [facility] Last Admin: 03/03/18 20:18 Dose: 5 mg
[2018-03-04 04:53] LABS: Platelet Count 194 thou/uL (130-400)
[2018-03-04 05:09] LABS: Anion Gap 12 mmol/L (10-20); BUN (Urea Nitrogen) 21 mg/dL (9.8-20.1); Calc. Creatinine Clearance 76 mL/min (70-130); Calcium 9.4 mg/dL (7.8-10.44); Carbon Dioxide 27 mmol/L (23-31); Chloride 104 mmol/L (98-107); Estimated GFR-MDRD 84; Glucose 83 mg/dL (83-110); Magnesium 2.3 mg/dL (1.6-2.6); Potassium 4.4 mmol/L (3.5-5.1); Sodium 139 mmol/L (136-145)
[2018-03-04] MEDS: Budesonide 0.5 MG/2 ML NEB NEB SCH ×2 (06:04→19:23)
[2018-03-04] MEDS: Apixaban 5 MG TAB PO SCH ×2 (09:17→21:27)
[2018-03-04] MEDS: Allopurinol 300 MG TAB PO SCH (09:17)
[2018-03-04] MEDS: predniSONE 20 MG TAB PO SCH (09:17)
[2018-03-04] MEDS: Lactinex Tablet PO SCH (09:18)
[2018-03-04] MEDS: FLUoxetine HCl 20 MG CAP PO SCH (09:18)
[2018-03-04] MEDS: Oxybutynin 5 MG TAB PO SCH (09:18)
[2018-03-04] MEDS: Fenofibrate Nanocrystallized 145 MG TAB PO SCH (09:18)
[2018-03-04] MEDS: Magnesium Oxide 400 MG TAB PO SCH (09:18)
[2018-03-04] MEDS: Furosemide 40 MG/4 ML VIAL SLOW IVP SCH ×2 (09:18→21:28)
[2018-03-04] MEDS: Ubidecarenone 50 MG CAP PO SCH (09:19)
[2018-03-04] MEDS: Polyethylene Glycol 3350 17 GM Packet PO SCH (09:19)
[2018-03-04] MEDS: Potassium Chloride 20 MEQ TAB PO SCH ×2 (09:19→21:27)
[2018-03-04] MEDS: Mupirocin 2% Ointment 22 GM Tube TOP SCH ×3 (09:20→21:27)
[2018-03-04] MEDS: Calcium Carbonate 500 MG ChewTAB PO PRN (10:24)
--- NOTE | 2018-03-04 14:49 | PDOC.CTH ---
Cardiology Progress Note - Subjective No overnight events. ECHO shows normal EF 50-55% and severe . - Objective Vital Signs Temp Pulse Resp BP Pulse Ox 03/04/18 13:33 65 16 95 03/04/18 11:39 98.2 F 69 16 141/64 H 94 L 03/04/18 09:36 68 18 95 03/04/18 09:13 98.1 F 65 16 142/65 H 97 03/04/18 06:04 60 14 95 03/04/18 03:00 97.2 F L 58 L 19 167/69 H 99 Admit Weight 184 lb 1.6 oz Weight 167 lb 8 oz 03/03/18 03/04/18 03/05/18 06:59 06:59 06:59 Intake Total 1820 1675 120 Output Total 3200 1900 Balance -1380 -225 120 - Physical Examination General/Neuro: alert & oriented x3 Neck: no JVD present Heart: other: (IRR) Abdomen: NT/ND Extremities: other: (no edema) - Telemetry Telemetry Rhythm: AFib - Labs Result Diagrams: 03/04/18 04:13 03/04/18 04:13 Troponin/CKMB Troponin I 0.017 ng/mL (< 0.028) 02/27/18 21:14 - Assessment/Plan 1. Acute systolic CHF 2. Critical 3. Chronic AF s/p Watchman and subsequent coiling 12/2016 and 04/2017. Remains on Eliquis. Unsure if she ever had confirmatory testing for closure. 4. Recurrent UTIs 5. CAD 6. NSVT EF stable on ECHO. Appears more euvolemic. Awaiting urology consult on rita. Ok to d/c tele and transfer to medical. Then discharge for outpatient TAVR eval.
--- NOTE | 2018-03-04 14:54 | PRG-2 ---
DATE OF SERVICE: 03/04/2018 OBJECTIVE: VITAL SIGNS: Afebrile, heart rate 65, respiratory rate 16, oximetry 95 on room air, blood pressure 1 41/64. LUNGS: Clear. HEART: Regular rhythm. Murmur is unchanged. ABDOMEN: Soft. She still has Bishop in place. LABORATORY DATA: Hemoglobin is 12.0. Electrolytes are normal. Blood cultures are negative. IMPRESSION: 1. Critical aortic stenosis. 2. Congestive heart failure, resolved. 3. Chronic indwelling Bishop. She saw the urologist at [facility]. He left the Bishop in from w hat I can tell. It would be nice to get the Bishop out at some point. She has negative cultures at this point in time, although I do not have a urine culture. Meropenem w as discontinued yesterday. Her asthma appears to be clinically stable. Disposition is the next step with regards to her conside ration for transcutaneous aortic valve replacement.
[2018-03-04] MEDS: Rosuvastatin 5 MG TAB PO SCH (21:27)
[2018-03-04] MEDS: HYDROcodone/Acetaminophen 10/325 mg Tablet PO PRN (21:29)
--- NOTE | 2018-03-05 00:26 | CON ---
DATE OF CONSULTATION: 03/04/2018 REASON FOR CONSULTATION: Indwelling Salinas catheter, recurrent urinary tract infections. HISTORY OF PRESENT ILLNESS: Ms. Garcia is an 82-year-old female admitted to the hospital on 02/27/2018. She has had multiple admissions over the last month or two for a combination of symptoms including urinary problems, fever, and respiratory issues. Her reason for admission is often given as UTI, but interestingly, she has not had a positive urinary culture since 12/25. All cultures subsequent to 12/25 are negative. Despite this, she has been admitted to hospital for "urinary tract infection." She has had evaluation by Dr. Bal for potential reasons for her UTI's - evaluation has included both upper tract imaging and cystoscopy. Evaluation is normal other than vaginal prolapse. It has not been documented with her prolapse is associated with a large post void residual. She recently ( ~ 1 week ago) had a catheter placed at her request to help manage her incontinence and the subsequent skin issues associated with chronic dampness. The catheter was not placed for a high post void residual and she has had no issues with the salinas catheter and in fact has found it helpful.She was admitted to the hospital on 02/27/2018. Urine culture at that time was negative. She is currently being evaluated and treated for cardiorespiratory problems and the question has been raised as to how to manage the catheter. PAST MEDICAL HISTORY: Aortic valve stenosis, history of recurrent urinary tract infections, history of atrial fibrillation, hypertension, congestive heart failure. PAST SURGICAL HISTORY: Cataract surgery, colonoscopy, appendectomy, coronary artery bypass graft, knee surgery, tonsillectomy, hysterectomy. ALLERGIES: Include ADVIL, DAYPRO, LORAZEPAM, PENICILLINS. FAMILY HISTORY: Noncontributory. MEDICATIONS: At time of admission calcium, allopurinol, coenzyme Q, Eliquis, Vasotec, fluoxetine, Lasix, gabapentin, recently started Levaquin. PHYSICAL EXAMINATION: GENERAL: She is awake and alert. She is in no distress at this time. She is alert and oriented. HEENT: Normocephalic, atraumatic. NECK: Supple. No masses. CHEST: Mild diminished breath sounds bilaterally. No wheezing noted. ABDOMEN: Soft, nontender. No palpable masses. PELVIC: Not repeated. LABORATORY DATA: Urine culture not done. Most recent positive urine culture at [facility] from 10/2016. Blood cultures negative. ASSESSMENT AND PLAN: Ms. Garcia is an 82-year-old female with vaginal prolapse and urinary incontinence. She has refused surgical therapy for her vaginal prolapse and has also refused pessary. She is now considering pessary. She has incontinence and recurrent urinary tract infections. She has a long history of recurrent urinary tract infections that predated the use of a Salinas catheter. Her Salinas catheter was placed recently because of her severe incontinence and skin changes occurring from the chronic moisture - not because she has a known emptying problem. She has been quite pleased with the results of having the indwelling Salinas catheter. There has not been an issue with UTI since the catheter has been in place although it has not been in place long.The last positive culture I could find in either of the [employer] [place] or [place] system was from 12/2017 - prior to catheter placement. Several cultures subsequent to 12/2017 were negative. I have discussed the management of the Salinas catheter with both the patient and her son Feng. At the current time, they are interested in leaving the Salinas catheter in place to allow for continued healing of the skin In addition, the purpose of the Salinas catheter was to see if her urinary tract problems are better managed with the Salinas catheter than with chronic use of pads. As mentioned above, she was certainly not infection free without the Salinas catheter. Once the Salinas catheter iss removed, she needs to have postvoid residuals determined. Certainly if residuals are high, she may have a lower risk of infection with a chronic indwelling Salinas catheter. If residuals are low, then the primary advantage of a Salinas catheter is to diminish incontinence. RECOMMENDATIONS: 1. Continue Salinas catheter at this time as per patient and family request. 2. Salinas catheter can be removed once agreed upon by the family or if there is a good indication as determined by the other MD's providing her care. 3. Consider a DEPUTY FIRE CHIEF consultation for pessary placement. 4. We will need postvoid residual checks after catheter removed. DEVON
[2018-03-05 05:28] LABS: Anion Gap 9 mmol/L (10-20); BUN (Urea Nitrogen) 22 mg/dL (9.8-20.1); Calc. Creatinine Clearance 69 mL/min (70-130); Calcium 10.1 mg/dL (7.8-10.44); Carbon Dioxide 36 mmol/L (23-31); Chloride 101 mmol/L (98-107); Estimated GFR-MDRD 75; Glucose 75 mg/dL (83-110); Potassium 4.7 mmol/L (3.5-5.1); Sodium 141 mmol/L (136-145)
[2018-03-05] MEDS: Budesonide 0.5 MG/2 ML NEB NEB SCH ×2 (06:51→19:31)
[2018-03-05] MEDS: Fenofibrate Nanocrystallized 145 MG TAB PO SCH (08:57)
[2018-03-05] MEDS: Magnesium Oxide 400 MG TAB PO SCH (08:57)
[2018-03-05] MEDS: Allopurinol 300 MG TAB PO SCH (08:57)
[2018-03-05] MEDS: Lactinex Tablet PO SCH (08:57)
[2018-03-05] MEDS: Oxybutynin 5 MG TAB PO SCH (08:57)
[2018-03-05] MEDS: Furosemide 40 MG/4 ML VIAL SLOW IVP SCH (08:58)
[2018-03-05] MEDS: Potassium Chloride 20 MEQ TAB PO SCH ×2 (08:58→21:01)
[2018-03-05] MEDS: Polyethylene Glycol 3350 17 GM Packet PO SCH (08:58)
[2018-03-05] MEDS: predniSONE 20 MG TAB PO SCH (08:58)
[2018-03-05] MEDS: Apixaban 5 MG TAB PO SCH ×2 (08:58→20:59)
[2018-03-05] MEDS: FLUoxetine HCl 20 MG CAP PO SCH (08:58)
[2018-03-05] MEDS: Mupirocin 2% Ointment 22 GM Tube TOP SCH ×3 (08:59→21:00)
[2018-03-05] MEDS: Ubidecarenone 50 MG CAP PO SCH (09:19)
--- NOTE | 2018-03-05 14:04 | PDOC.PN ---
- Subjective Encounter Start Date: 03/05/18 Encounter Start Time: 14:03 Ms. Garcia was seen today in follow-up. She does not have any complaints. She ambulated some without difficulty earlier today. She is breathing much easier down. - Objective MAR Reviewed: Yes Vital Signs & Weight: Vital Signs (12 hours) Temp Pulse Resp BP BP BP Pulse Ox 03/05/18 10:17 68 16 03/05/18 08:58 157/84 H 03/05/18 08:00 98.2 F 69 16 93 L 03/05/18 07:31 98.2 F 69 16 157/84 H 93 L 03/05/18 06:51 93 L 03/05/18 06:50 63 16 96 03/05/18 04:53 98.6 F 62 20 178/75 H 95 03/05/18 02:14 64 12 96 Weight Admit Weight 184 lb 1.6 oz Weight 167 lb 8 oz I&O: 03/04/18 03/05/18 03/06/18 06:59 06:59 06:59 Intake Total 1675 240 Output Total 1900 950 950 Balance -225 -710 -950 Result Diagrams: 03/04/18 04:13 03/05/18 04:27 Phys Exam - Physical Examination HEENT: PERRLA, sclera anicteric Respiratory: no wheezing, no rales, no rhonchi, clear to auscultation bilateral Cardiovascular: RRR, no rub 2/6 systolic murmur Gastrointestinal: soft, non-tender, no distention, positive bowel sounds Musculoskeletal: no edema trace edema Dx/Plan (1) Urinary retention Code(s): R33.9 - RETENTION OF URINE, UNSPECIFIED Status: Acute Comment: with chronic salinas placed at [facility] prior to dc (2) Aortic stenosis Code(s): I35.0 - NONRHEUMATIC AORTIC (VALVE) STENOSIS Status: Chronic Comment: plan for TAVR in [place] (3) HTN (hypertension) Code(s): I10 - ESSENTIAL (PRIMARY) HYPERTENSION Status: Chronic Comment: Monitor vital signs, titrate antihypertensives as needed (4) Diastolic CHF, acute on chronic Code(s): I50.33 - ACUTE ON CHRONIC DIASTOLIC (CONGESTIVE) HEART FAILURE Status : Acute Comment: improving - Plan * Acute on chronic diastolic heart failure- compensated- will change to oral Lasix * Urinary retention- She is to be discharged with a Salinas catheter * Aortic Stenosis- she is contemplating TAVR * Discharge home tomorrow.
--- NOTE | 2018-03-05 18:14 | PRG ---
DATE OF SERVICE: 03/05/2018 SUBJECTIVE: Josseline Garcia has no complaints. She was seen by Urology. Bishop still in place. OBJECTIVE: LUNGS: Clear. HEART: Unchanged. ABDOMEN: Soft. LABORATORY DATA: Hemoglobin is 12.0 yesterday. There is no lab today other than electrolytes which are unremarkable. Her bicarbonate did go up to 36 with a negative fluid balance to 710 Ml. I suspec t she is starting to develop a contraction alkalosis with her diuresis. IMPRESSION: 1. Severe aortic stenosis. 2. Vaginal prolapse with frequent urinary tract infections, being followed by Urology. PLAN: Evaluation for her TAVR. Her diuretics and potassium probably need to be cut back because her potassium was creeping up. She is getting alkalotic. Her asthma is clinically stable.
[2018-03-05] MEDS: Furosemide 40 MG TAB PO SCH (21:00)
[2018-03-05] MEDS: Rosuvastatin 5 MG TAB PO SCH (21:01)
[2018-03-05] MEDS: HYDROcodone/Acetaminophen 10/325 mg Tablet PO PRN (22:42)
[2018-03-06 04:50] LABS: Anion Gap 11 mmol/L (10-20); BUN (Urea Nitrogen) 21 mg/dL (9.8-20.1); Calc. Creatinine Clearance 75 mL/min (70-130); Calcium 9.8 mg/dL (7.8-10.44); Carbon Dioxide 32 mmol/L (23-31); Chloride 102 mmol/L (98-107); Estimated GFR-MDRD 83; Glucose 91 mg/dL (83-110); Potassium 4.8 mmol/L (3.5-5.1); Sodium 140 mmol/L (136-145)
[2018-03-06] MEDS: Budesonide 0.5 MG/2 ML NEB NEB SCH ×2 (06:38→18:50)
[2018-03-06] MEDS: predniSONE 20 MG TAB PO SCH (10:13)
[2018-03-06] MEDS: Polyethylene Glycol 3350 17 GM Packet PO SCH (10:13)
[2018-03-06] MEDS: Allopurinol 300 MG TAB PO SCH (10:14)
[2018-03-06] MEDS: Apixaban 5 MG TAB PO SCH ×2 (10:18→21:31)
[2018-03-06] MEDS: Fenofibrate Nanocrystallized 145 MG TAB PO SCH (10:18)
[2018-03-06] MEDS: FLUoxetine HCl 20 MG CAP PO SCH (10:19)
[2018-03-06] MEDS: Lactinex Tablet PO SCH (10:21)
[2018-03-06] MEDS: Magnesium Oxide 400 MG TAB PO SCH (10:21)
[2018-03-06] MEDS: Furosemide 40 MG TAB PO SCH ×2 (10:21→21:29)
[2018-03-06] MEDS: Mupirocin 2% Ointment 22 GM Tube TOP SCH ×3 (10:22→21:29)
[2018-03-06] MEDS: Oxybutynin 5 MG TAB PO SCH (10:23)
[2018-03-06] MEDS: Potassium Chloride 20 MEQ TAB PO SCH ×2 (10:24→21:28)
[2018-03-06] MEDS: Ubidecarenone 50 MG CAP PO SCH (10:25)
--- NOTE | 2018-03-06 13:54 | PDOC.PN ---
- Subjective Encounter Start Date: 03/06/18 Encounter Start Time: 08:20 Pt seen for followup re: UTI. Denies chest pain, shortness fo breath, fevers or chills. - Objective Vital Signs & Weight: Vital Signs (12 hours) Temp Pulse Resp BP BP BP Pulse Ox 03/06/18 12:07 98.6 F 67 16 135/72 93 L 03/06/18 10:15 135/72 03/06/18 09:51 62 16 03/06/18 08:00 98.5 F 62 16 95 03/06/18 07:23 98.5 F 70 16 162/76 H 95 03/06/18 06:39 97 03/06/18 06:37 73 16 97 03/06/18 02:49 96 03/06/18 02:25 12 95 Weight Admit Weight 184 lb 1.6 oz Weight 167 lb 8 oz I&O: 03/05/18 03/06/18 03/07/18 06:59 06:59 06:59 Intake Total 240 640 Output Total 950 2350 Balance -710 -2990 Result Diagrams: 03/04/18 04:13 03/06/18 04:03 Phys Exam - Physical Examination Constitutional: NAD HEENT: moist MMs Neck: supple Respiratory: clear to auscultation bilateral Cardiovascular: RRR Gastrointestinal: soft Neurological: moves all 4 limbs Psychiatric: normal affect Dx/Plan (1) UTI (urinary tract infection) Status: Acute Comment: pt is off of antibiotics (2) Urinary retention Code(s): R33.9 - RETENTION OF URINE, UNSPECIFIED Status: Acute Comment: pt has [place]inas catheter. Consult gynecology for ? pessary placement (3) Aortic stenosis Code(s): I35.0 - NONRHEUMATIC AORTIC (VALVE) STENOSIS Status: Chronic Comment: plan for TAVR in [place] (4) HTN (hypertension) Code(s): I10 - ESSENTIAL (PRIMARY) HYPERTENSION Status: Chronic Comment: Monitor vital signs, titrate antihypertensives as needed (5) Dyslipidemia Code(s): E78.5 - HYPERLIPIDEMIA, UNSPECIFIED Status: Chronic Comment: continue statin (6) CHF exacerbation Code(s): I50.9 - HEART FAILURE, UNSPECIFIED Status: Resolved Qualifiers: Heart failure type: diastolic Qualified Code(s): I50.33 - Acute on chronic diastolic (congestive) heart failure - Plan * . Review of Systems - Review of Systems Respiratory: negative: Cough, Shortness of Breath, SOB with Excertion, Pleuritic Pain, Wheezing Cardiovascular: negative: chest pain, palpitations, orthopnea, paroxysmal nocturnal dyspnea, edema, light headedness - Medications/Allergies Allergies/Adverse Reactions: Allergies Allergy/AdvReac Type Severity Reaction Status Date / Time hydralazine Allergy Severe Short of Verified 03/01/18 12:58 Breath ibuprofen [From Advil] Allergy Verified 02/28/18 00:18 lorazepam [From Ativan] Allergy Verified 02/28/18 00:18 oxaprozin [From Daypro] Allergy Verified 02/28/18 00:18 Penicillins Allergy Verified 02/28/18 00:18 Medications: Current Medications Acetaminophen (Tylenol) 650 mg PO Q4H PRN PRN Reason: Headache/Fever Last Admin: 03/03/18 02:07 Dose: 650 mg Acetaminophen (Tylenol) 1,000 mg PO Q6HR PRN PRN Reason: Pain Hydrocodone Bitart/Acetaminophen (Republic 10/325) 1 tab PO Q6H PRN PRN Reason: Pain 7-10 Last Admin: 03/05/18 22:42 Dose: 1 tab Acidophilus (Floranex) 1 tab PO DAILY [facility] Last Admin: 03/06/18 10:21 Dose: 1 tab Al Hydroxide/Mg Hydroxide (Maalox) 30 ml PO Q6H PRN PRN Reason: Heartburn or Indigestion Albuterol Sulfate (Albuterol Sulfate) 0.63 mg NEB Q4HR PRN PRN Reason: Wheezing Albuterol/Ipratropium (Duoneb) 3 ml NEB [id number] [facility] Last Admin: 03/06/18 09:51 Dose: 3 ml Allopurinol (Zyloprim) 300 mg PO QAM [facility] Last Admin: 03/06/18 10:14 Dose: 300 mg Apixaban (Eliquis) 5 mg PO BID [facility] Last Admin: 03/06/18 10:18 Dose: 5 mg Budesonide (Pulmicort Neb Solution) 0.5 mg NEB BID-RT [facility] Last Admin: 03/06/18 06:38 Dose: 0.5 mg Calcium Carbonate (Tums) 500 mg PO TID PRN PRN Reason: Indigestion Last Admin: 03/04/18 10:24 Dose: 500 mg Clonidine (Catapres) 0.1 mg PO Q4H PRN PRN Reason: SBP Greater Than 170 Last Admin: 03/03/18 03:45 Dose: 0.1 mg Coenzyme Q10 (Coenzyme Q10) 200 mg PO DAILY [facility] Last Admin: 03/06/18 10:25 Dose: 200 mg Enalapril Maleate (Vasotec) 20 mg PO BID [facility] Last Admin: 03/06/18 10:15 Dose: 20 mg Fenofibrate (Tricor) 145 mg PO DAILY [facility] Last Admin: 03/06/18 10:18 Dose: 145 mg Fluoxetine HCl (Prozac) 40 mg PO QAM [facility] Last Admin: 03/06/18 10:19 Dose: 40 mg Furosemide (Lasix) 40 mg PO BID [facility] Last Admin: 03/06/18 10:21 Dose: 40 mg Gabapentin (Neurontin) 300 mg PO BID PRN PRN Reason: Pain 4-6 Guaifenesin/Dextromethorphan (Robitussin Dm) 5 ml PO Q4HR PRN PRN Reason: Cough Labetalol HCl (Normodyne) 10 mg SLOW IVP Q4H PRN PRN Reason: SBP Greater Than 180 Magnesium Oxide (Magnesium Oxide) 400 mg PO QAM [facility] Last Admin: 03/06/18 10:21 Dose: 400 mg Miscellaneous Medication (Pharmacy To Dose) 0 each IVPB ASDIR PRN PRN Reason: Pharmacy to Dose RENALLY ADJUS Mupirocin (Bactroban 2% Ointment) 0 gm TOP TID [facility] Last Admin: 03/06/18 10:22 Dose: 1 applic Ondansetron HCl (Zofran) 4 mg IVP Q6H PRN PRN Reason: Nausea/Vomiting Oxybutynin Chloride (Ditropan) 10 mg PO DAILY [facility] Last Admin: 03/06/18 10:23 Dose: 10 mg Pantoprazole Sodium (Protonix) 40 mg PO HS [facility] Last Admin: 03/05/18 21:00 Dose: 40 mg Polyethylene Glycol (Miralax) 17 gm PO DAILY [facility] Last Admin: 03/06/18 10:13 Dose: 17 gm Potassium Chloride (K-Dur) 20 meq PO BID [facility] Last Admin: 03/06/18 10:24 Dose: 20 meq Prednisone (Prednisone) 20 mg PO QAM[facility] Last Admin: 03/06/18 10:13 Dose: 20 mg Rosuvastatin Calcium (Crestor) 5 mg PO HS [facility] Last Admin: 03/05/18 21:01 Dose: 5 mg Sodium Chloride (Flush - Normal Saline) 10 ml IVF Q12HR [facility] Last Admin: 03/06/18 10:25 Dose: 10 ml Sodium Chloride (Flush - Normal Saline) 10 ml IVF PRN PRN PRN Reason: Saline Flush
--- NOTE | 2018-03-06 20:14 | PRG ---
DATE OF SERVICE: 03/06/2018 CHIEF COMPLAINT: None. She is feeling well. OBJECTIVE: VITAL SIGNS: Temperature 97.6, blood pressure 136/75 and pulse 98. ABDOMEN: Soft and nontender. EXTREMITIES: No edema. GENITOURINARY: Bishop catheter in place. IMPRESSION: Ms. Garcia is clinically stable at this time. I have discussed catheter management both with the patient and her son, Feng. She states that she has done before the catheter was in place. Short time knowing her, I am in agreement with this statement. She is not constantly wide and the c atheter is not causing any pain. I discussed with her management option at this time including mesha ter removal versus leaving the catheter in place and changing in several weeks. She would like a tri al leaving the catheter in place based on her overall improved status since it has been placed. RECOMMENDATIONS: Okay to discharge home with Bishop catheter in place. We will make arrangements for her to followup in our office for catheter change or removal in the future.
[2018-03-06] MEDS: Rosuvastatin 5 MG TAB PO SCH (21:28)
[2018-03-06] MEDS: HYDROcodone/Acetaminophen 10/325 mg Tablet PO PRN (21:31)
[2018-03-07 04:41] LABS: Hemoglobin 12.5 g/dL (12.0-16.0); Platelet Count 207 thou/uL (130-400)
[2018-03-07 04:51] LABS: Anion Gap 12 mmol/L (10-20); BUN (Urea Nitrogen) 23 mg/dL (9.8-20.1); Calc. Creatinine Clearance 70 mL/min (70-130); Calcium 9.8 mg/dL (7.8-10.44); Carbon Dioxide 30 mmol/L (23-31); Chloride 103 mmol/L (98-107); Estimated GFR-MDRD 76; Glucose 103 mg/dL (83-110); Magnesium 1.9 mg/dL (1.6-2.6); Potassium 4.6 mmol/L (3.5-5.1); Sodium 140 mmol/L (136-145)
[2018-03-07] MEDS: Budesonide 0.5 MG/2 ML NEB NEB SCH (07:25)
[2018-03-07] MEDS: predniSONE 20 MG TAB PO SCH (08:48)
[2018-03-07] MEDS: Polyethylene Glycol 3350 17 GM Packet PO SCH (08:48)
[2018-03-07] MEDS: Lactinex Tablet PO SCH (08:49)
[2018-03-07] MEDS: Furosemide 40 MG TAB PO SCH (08:49)
[2018-03-07] MEDS: Magnesium Oxide 400 MG TAB PO SCH (08:49)
[2018-03-07] MEDS: Oxybutynin 5 MG TAB PO SCH (08:49)
[2018-03-07] MEDS: Potassium Chloride 20 MEQ TAB PO SCH (08:49)
[2018-03-07] MEDS: Allopurinol 300 MG TAB PO SCH (08:49)
[2018-03-07] MEDS: Ubidecarenone 50 MG CAP PO SCH (08:49)
[2018-03-07] MEDS: FLUoxetine HCl 20 MG CAP PO SCH (08:49)
[2018-03-07] MEDS: Fenofibrate Nanocrystallized 145 MG TAB PO SCH (08:49)
[2018-03-07] MEDS: Apixaban 5 MG TAB PO SCH (08:50)
[2018-03-07] MEDS: Mupirocin 2% Ointment 22 GM Tube TOP SCH ×2 (08:50→14:52)
--- NOTE | 2018-03-07 09:19 | CON ---
DATE OF CONSULTATION: 03/07/2018 REFERRING PHYSICIAN: Dr. Olivares REASON FOR CONSULTATION: Pelvic prolapse. HISTORY OF PRESENT ILLNESS: The patient is an 82-year-old female who presented to the hospital with a persistent cough. The patient had recently been admitted to [facility] on 3 differen t occasions in the last 3 weeks and there was diagnosed with pneumonia and a urinary tract infection. On her last discharge home, the patient was home for about 24-48 hours and did not appear to be doi ng well, looked physically tired and the decision was made to come to [facility] for evaluat ion. The patient does report in the last year she has been evaluated for pessary placement by a Dr. Bal here in [facility] that she says has now retired. PAST MEDICAL HISTORY: Significant for COPD, asthma, bronchitis, congestive heart failure. She was d iagnosed with a urinary tract infection and started on IV antibiotics, acute congestive heart failure exacerbation, physical deconditioning and hypertensive urgency. The patient was also admitted with a Bishop catheter in place and was noted to have pelvic prolapse for which AGILE TEST LEAD was consulted. I spoke to the patient this morning who reports to me that she has a longstanding history of urinary incontinence. She reports a history of hysterectomy with what sounds to be an anterior repair and a secondary surgery that she calls a bladder tuck. She reports up until the day of admission she batool nued to have bad urinary incontinence. I believe this is why the Bishop catheter has remained in plac e to help minimize complications to this incontinence, but at the time of my evaluation, the patient could not give a clear report as to why the catheter remained in place. PHYSICAL EXAMINATION: VITAL SIGNS: Her vital signs at time of evaluation, the patient has a blood pressure 117/67, pulse i s 68, respiratory rate of 16, O2 sats of 97% on oxygen, nebulizer treatment. GENERAL: She is alert and oriented, cooperative and pleasant to interact with. HEAD: Normocephalic, atraumatic. PELVIC: Vulva is without masses, lesions or erythema. She does not appear to have any erosions. e does have a urinary catheter, non-latex in place. On vaginal exam, she appears to have some anteri or defect that comes to the level of the introitus. She appears to have fairly good support of her v aginal cuff and no rectocele. ASSESSMENT AND PLAN: The patient is an 82-year-old female with multiple medical problems and longsta nding urinary incontinence with some level of pelvic prolapse, primarily from an anterior defect or c ystocele. The level of this defect does not appear to be severe. However, the patient could benefit from pessary placement. Unfortunately, we do not have the proper equipment for pessary fitting or f or proper evaluation. Would recommend that the patient follow up with [facility] o r other AGILE TEST LEAD of choice for evaluation of a pessary. This may or may not improve her urinary incont inence. A trial certainly is a reasonable thing to attempt. From a standpoint of AGILE TEST LEAD, we will be signing off and will submit a referral to [facility] for an appointment.
[2018-03-07 10:27] VITALS: BP 136/78; TEMP 97.6
--- NOTE | 2018-03-08 01:42 | DIS ---
DATE OF ADMISSION: 02/27/2018 DATE OF DISCHARGE: 03/07/2018 PRIMARY CARE PROVIDER: Yamilet Smith D.O. DISCHARGE DIAGNOSES: 1. Urinary tract infection. 2. Severe aortic stenosis. 3. Physical deconditioning. 4. Acute hypoxic respiratory failure. 5. Acute diastolic and valvular heart failure. CONSULTATIONS DURING THIS HOSPITALIZATION: Pulmonology, Dr. Del Angel; Cardiology, Dr. Vega; Infec tious Diseases, Dr. Jolly; Urology, Dr. Webster; and Gynecology, Dr. Mishra. DISCHARGE MEDICATIONS: Her levofloxacin was discontinued. Otherwise, no change was made to her prea dmission home medications as dictated by Dr. Rodriguez on the history and physical note dated 02/28/20 18. HOSPITAL COURSE: Ms. Garcia is a pleasant 82-year-old lady, who was admitted to [facility] for urinary tract infection on 02/27/2018. She has a history of recurrent urinary tract infections. She was seen by Infectious Disease service. She improved with antibiotics. Urine cult ures were not sent from the emergency room. Antibiotics were discontinued after patient improved. She was also in acute respiratory failure, most likely secondary to congestive heart failure. She wa s treated with diuretics. She was seen by Urology service for urinary retention and for recurrent urinary tract infections. Denise haile is being discharged home with Bishop catheter in place. Urology service will follow up with her as outpatient. Urology service recommended a gynecology consultation for pessary placement. They felt that the fiordaliza ent could benefit from pessary placement. Unfortunately, they did not have the equipment for pessary fitting or for proper evaluation and recommended that patient follow up with [facility] or other SLOT ATTENDANT of choice for evaluation of a pessary. Otherwise, no change was made to her preadmission home medications as dictated by Dr. Ramo larry in the history and physical note dated 02/27/2018. On the day of discharge, she has hemoglobin 12.5, hematocrit 38.8, normal electrolytes, blood urea nitrogen elevated at 23, and normal creatinine . She became deconditioned during this hospitalization. She was evaluated by therapy services and was advised retirement placement. She did not wish to wait in the hospital for retirement auth orization. After discussions between patient's son and case management, she is being discharged home to await retirement placement. If she was declined for retirement placement, family will consult Palliative Care to see if she can be managed at home with hospice services. Many thanks for allowing me to participate in your patient's care. Please feel free to contact me wi th any questions or concerns. DISCHARGE DESTINATION: Home. TOTAL AMOUNT OF TIME SPENT COORDINATING THIS DISCHARGE: 33 minutes.
--- NOTE | 2018-03-10 11:08 | PQF ---
MAGDALENE ACOSTA CODEY WEBB [id number] [facility] [id number] CLINICAL DOCUMENTATION CLARIFICATION FORM: POST DISCHARGE Addendum to original discharge summary date: ____ Late entry note date: __ Please exercise your independent, professional judgment in responding to the clarification form. Clinical indicators are provided on the bottom of this form for your review Please check appropriate box(s): [ X ] UTI please specify if due to or related to (as applicable): DUE TO [ ] Indwelling catheter [ X ] Unable to determine etiology [ ] Contaminated urine specimen without UTI [ ] Other diagnosis [ ] Unable to determine In addition, please specify: Present on Admission (POA): [ X ] Yes [ ] No [ ] Unable to determine For continuity of documentation, please document condition throughout progress notes and discharge summary. Thank You. CLINICAL INDICATORS - SIGNS / SYMPTOMS / LABS negative culture Documentation: UTI RISK FACTORS bladder prolapse presence of indwelling catheter TREATMENT: Antibiotics IVF (This form is maintained as a part of the permanent medical record) 2014 [employer] All Rights Reserved Ana Rosa [email or web address] [phone] DEVON
--- NOTE | 2018-03-15 12:34 | EKG ---
Test Reason : REPEAT EKG Blood Pressure : / mmHG Vent. Rate : 087 BPM Atrial Rate : 093 BPM P-R Int : 000 ms QRS Dur : 134 ms QT Int : 404 ms P-R-T Axes : 000 113 018 degrees QTc Int : 486 ms Atrial fibrillation Right bundle branch block Abnormal ECG Confirmed by TOI VALLEJO, ESTEFANI ([id number]), manager editorial MULU BARNETT ([id number]) on 03/15/2018 12:34:00 PM Referred By: Confirmed By:ESTEFANI CM MD
--- NOTE | 2018-03-15 12:34 | EKG ---
Test Reason : HYPERTENSION Blood Pressure : / mmHG Vent. Rate : 062 BPM Atrial Rate : 066 BPM P-R Int : 000 ms QRS Dur : 130 ms QT Int : 466 ms P-R-T Axes : 000 111 059 degrees QTc Int : 472 ms Undetermined rhythm Right bundle branch block Abnormal ECG Confirmed by TOI VALLEJO, ESTEFANI ([id number]), newspaper copy editor MULU BARNETT ([id number]) on 03/15/2018 12:33:53 PM Referred By: Confirmed By:ESTEFANI CM MD
== END 2018-03-07 15:59 | disposition home or self-care (01) | DRG 291 ==
LOC: ERS 17:18 → OBSVTOIN 21:28 → 2NO 21:28 → T4-A 03-04 18:20
PROVIDERS: ADMIT Hospitalist; ATTEND Hospitalist
PROC: 5A09357 Assistance with Respiratory Ventilation, Less than 24 Consecutive Hours, Continuous Positive Airway Pressure (ICD-10-PCS; principal; 2018-02-28)
DX: I11.0 Hypertensive heart disease with heart failure (principal); J96.01 Acute respiratory failure with hypoxia; N39.0 Urinary tract infection, site not specified; I47.2 Ventricular tachycardia; I16.0 Hypertensive urgency; I50.33 Acute on chronic diastolic (congestive) heart failure; I48.2 Chronic atrial fibrillation; E78.5 Hyperlipidemia, unspecified; E66.9 Obesity, unspecified; I35.0 Nonrheumatic aortic (valve) stenosis; L89.151 Pressure ulcer of sacral region, stage 1; I45.19 Other right bundle-branch block; G47.33 Obstructive sleep apnea (adult) (pediatric); J44.9 Chronic obstructive pulmonary disease, unspecified; R33.9 Retention of urine, unspecified; N81.4 Uterovaginal prolapse, unspecified; I25.10 Atherosclerotic heart disease of native coronary artery without angina pectoris; Z96.653 Presence of artificial knee joint, bilateral; Z68.27 Body mass index [BMI] 27.0-27.9, adult; I25.2 Old myocardial infarction; Z95.1 Presence of aortocoronary bypass graft; Z88.6 Allergy status to analgesic agent; Z88.0 Allergy status to penicillin; Z91.09 Other allergy status, other than to drugs and biological substances; Z79.899 Other long term (current) drug therapy; Z79.01 Long term (current) use of anticoagulants; Z87.39 Personal history of other diseases of the musculoskeletal system and connective tissue; Z87.01 Personal history of pneumonia (recurrent); Z87.440 Personal history of urinary (tract) infections; Z90.49 Acquired absence of other specified parts of digestive tract; Z90.710 Acquired absence of both cervix and uterus; Z82.49 Family history of ischemic heart disease and other diseases of the circulatory system; Z95.818 Presence of other cardiac implants and grafts; Z86.14 Personal history of Methicillin resistant Staphylococcus aureus infection; Z86.19 Personal history of other infectious and parasitic diseases
CPT/HCPCS: 36415; 71045; 80048; 81003; 81015; 82805; 83735; 83880; 84484; 85014; 85018; 85025; 85049; 87040; 93005; 93306; 94640; 96374; 96375; A4216; G8978-GP-CM; G8979-GP-CK; J0360; J0692; J1940; J2185; J3475; J7050; J7506; J7620; J7626

== ENCOUNTER 2018-05-15 05:38 | Day surgery (SDC) | payer MEDICARE ==
[2018-05-14 11:09] VITALS: BMI 27.9
[2018-05-15 07:55] LABS: Anion Gap 11 mmol/L (10-20); BUN (Urea Nitrogen) 33 mg/dL (9.8-20.1); Calc. Creatinine Clearance 50 mL/min (70-130); Calcium 9.8 mg/dL (7.8-10.44); Carbon Dioxide 23 mmol/L (23-31); Chloride 107 mmol/L (98-107); Estimated GFR-MDRD 52; Glucose 78 mg/dL (83-110); Potassium 4.7 mmol/L (3.5-5.1); Sodium 136 mmol/L (136-145)
[2018-05-15] MEDS ORDERED: PROPOFOL 20 ML ONE ×2 (10:14)
[2018-05-15] MEDS ORDERED: PROPOFOL 200 MG/20 ML VIAL ONE (15:01)
--- NOTE | 2018-05-17 14:06 | CON ---
DATE OF CONSULTATION: 05/17/2018 HISTORY OF PRESENT ILLNESS: Josseline Garcia is an 82-year-old woman with permanent atrial fibrillation, status post Watchman device and aortic stenosis. DESCRIPTION OF PROCEDURE: The patient was taken to PACU. The patient was sedated by Anesthesiology. A transesophageal probe was placed on distal esophagus and stomach. Echocardiographic images were obtained. FINDINGS: 1. Normal left ventricular systolic function. 2. Aortic valve leaflets are heavily calcified with marked reduction in leaflet excursion. 3. Aortic stenosis severe. 4. Moderate mitral regurgitation. 5. Mild tricuspid regurgitation. 6. The Watchman device is well positioned in left atrial appendage with no leak noted. 7. Atherosclerotic debris in the descending aorta. IMPRESSION: Watchman well positioned with no evidence of any leak and severe aortic stenosis. MTDD
--- NOTE | 2018-06-11 10:05 | ECHO ---
Josseline Garcia is an 82-year-old woman with permanent atrial fibrillation, status post Watchman device and aortic stenosis. The patient was taken to PACU. The patient was sedated by Anesthesiology. A transesophageal probe was placed on distal esophagus and stomach. Echocardiographic images were obtained. FINDINGS: 1. Normal left ventricular systolic function. 2. Aortic valve leaflets are heavily calcified with marked reduction in leaflet excursion. 3. Aortic stenosis severe. 4. Moderate mitral regurgitation. 5. Mild tricuspid regurgitation. 6. The Watchman device is well positioned in left atrial appendage with no leak noted. 7. Atherosclerotic debris in the descending aorta. IMPRESSION: Watchman well positioned with no evidence of any leak and severe aortic stenosis. MTDD
== END 2018-05-15 12:10 | disposition home or self-care (01) ==
LOC: CCL 05:38
PROVIDERS: ATTEND Internal Medicine Cardiovascular Disease
PROC: B24BZZ4 Ultrasonography of Heart with Aorta, Transesophageal (ICD-10-PCS; principal; 2018-05-15)
DX: I35.0 Nonrheumatic aortic (valve) stenosis (principal); I48.2 Chronic atrial fibrillation; I34.0 Nonrheumatic mitral (valve) insufficiency; I36.1 Nonrheumatic tricuspid (valve) insufficiency; I70.0 Atherosclerosis of aorta; I25.10 Atherosclerotic heart disease of native coronary artery without angina pectoris; J45.909 Unspecified asthma, uncomplicated; G47.30 Sleep apnea, unspecified; I25.2 Old myocardial infarction; I11.0 Hypertensive heart disease with heart failure; I50.32 Chronic diastolic (congestive) heart failure; E78.2 Mixed hyperlipidemia; E66.01 Morbid (severe) obesity due to excess calories; Z68.28 Body mass index [BMI] 28.0-28.9, adult; Z79.01 Long term (current) use of anticoagulants; Z79.899 Other long term (current) drug therapy; Z88.0 Allergy status to penicillin; Z88.8 Allergy status to other drugs, medicaments and biological substances; Z88.6 Allergy status to analgesic agent; Z95.1 Presence of aortocoronary bypass graft; Z95.818 Presence of other cardiac implants and grafts
CPT/HCPCS: 80048; 93312; J2704

== ENCOUNTER 2018-06-20 07:07 | Day surgery (SDC) | payer MEDICARE ==
[2018-06-19 11:28] VITALS: BMI 29.3
[2018-06-20] MEDS ORDERED: Iopamidol 370 76% 100 ML VIAL ONE (15:01)
== END 2018-06-20 14:46 | disposition home or self-care (01) ==
LOC: CCL 07:07
PROVIDERS: ATTEND Internal Medicine Cardiovascular Disease
PROC: 4A023N7 Measurement of Cardiac Sampling and Pressure, Left Heart, Percutaneous Approach (ICD-10-PCS; principal; 2018-06-20)
PROC: B2111ZZ Fluoroscopy of Multiple Coronary Arteries using Low Osmolar Contrast (ICD-10-PCS; 2018-06-20)
PROC: B2131ZZ Fluoroscopy of Multiple Coronary Artery Bypass Grafts using Low Osmolar Contrast (ICD-10-PCS; 2018-06-20)
PROC: B2181ZZ Fluoroscopy of Left Internal Mammary Bypass Graft using Low Osmolar Contrast (ICD-10-PCS; 2018-06-20)
DX: I25.10 Atherosclerotic heart disease of native coronary artery without angina pectoris (principal); I35.0 Nonrheumatic aortic (valve) stenosis; I11.0 Hypertensive heart disease with heart failure; I50.32 Chronic diastolic (congestive) heart failure; J45.909 Unspecified asthma, uncomplicated; G47.30 Sleep apnea, unspecified; I25.2 Old myocardial infarction; E78.00 Pure hypercholesterolemia, unspecified; I48.2 Chronic atrial fibrillation; E78.2 Mixed hyperlipidemia; E66.01 Morbid (severe) obesity due to excess calories; Z68.29 Body mass index [BMI] 29.0-29.9, adult; Z79.51 Long term (current) use of inhaled steroids; Z79.899 Other long term (current) drug therapy; Z88.0 Allergy status to penicillin; Z88.8 Allergy status to other drugs, medicaments and biological substances; Z95.1 Presence of aortocoronary bypass graft
CPT/HCPCS: 75625; 93455; 93567; C1769

== ENCOUNTER 2018-11-13 08:26 | Outpatient (CLI) | payer MEDICARE ==
--- NOTE | 2018-11-13 10:04 | RAD ---
CERVICAL SPINE AP AND LATERAL STANDARD: History: S12.040 Displaced lateral mass fracture of first cervical vertebrae. Comparison: Cervical spine CT, 2014 FINDINGS: Open mouth odontoid views are nondiagnostic. There appears to be a fracture of the anterior inferior endplate of C2. Severe degenerative changes throughout the cervical spine. IMPRESSION: Severely limited exam. Possible fracture of the anterior inferior endplate of C2. The reason for the exam states a first cervical fracture although this is not appreciated on this exam. POS: LEVI
== END 2018-11-13 08:27 | disposition home or self-care (01) ==
LOC: TBSIIMAG 08:26
PROVIDERS: ATTEND Neurological Surgery
DX: S12.040 Displaced lateral mass fracture of first cervical vertebra (principal)
CPT/HCPCS: 72040

== ENCOUNTER 2018-12-10 13:28 | Outpatient (CLI) | payer MEDICARE ==
--- NOTE | 2018-12-10 14:04 | RAD ---
FExam: Cervical spine 5 views Comparison 11/13/2018 History: Follow-up fracture. Lateral mass fracture at C1. FINDINGS: Severely limited examination due to patient position. There is diffuse bone demineralization. Fractur es involving the upper cervical spine are difficult to appreciate on the current examination. Open-mouth view is suboptimal, as is the base of skull view. IMPRESSION: Severely limited evaluation of the fracture involving the upper cervical spine, as report ed in the patient's history. Transcribed Date/Time: 12/10/2018 2:30 PM
== END 2018-12-10 13:29 | disposition home or self-care (01) ==
LOC: TBSIIMAG 13:28
PROVIDERS: ATTEND Neurological Surgery
DX: S12.9XXA Fracture of neck, unspecified, initial encounter (principal); S12.040A Displaced lateral mass fracture of first cervical vertebra, initial encounter for closed fracture
CPT/HCPCS: 72040

== ENCOUNTER 2019-01-29 10:47 | Outpatient (CLI) | payer MEDICARE ==
--- NOTE | 2019-01-29 11:29 | RAD ---
Exam: Chest 2 views: HISTORY: Dyspnea COMPARISON: 02/28/2018 FINDINGS: Stable prominent cardiomegaly. Postop midline sternotomy. Left-sided loop recorder. Coiling material overlying the left hilar region. Bilateral interstitial, linear, and reticular nodular parenchymal changes evidence for chronic lung i nterstitial disease slightly progressive from prior study, although the possibility of some acute interstitial process as well cannot be excluded. Right PICC line. IMPRESSION: Cardiomegaly with interstitial changes bilaterally slightly more prominent than on prior study. No ne w confluent pneumonia or other acute process. Bony demineralization. Multiple vertebral plasty changes. Postoperative changes.
== END 2019-01-29 10:48 | disposition home or self-care (01) ==
LOC: RAD 10:47
PROVIDERS: ATTEND Internal Medicine Critical Care Medicine
DX: R06.00 Dyspnea, unspecified (principal); I51.7 Cardiomegaly; J98.4 Other disorders of lung; Z98.890 Other specified postprocedural states
CPT/HCPCS: 71046

== ENCOUNTER 2019-02-09 15:33 | Inpatient (IN) | payer MEDICARE ==
[2019-02-09 16:47] LABS: #Eosinphils 0.9 thou/uL (0.0-0.7); #Lymphocytes 0.9 thou/uL (1.20-3.40); #Monocytes 0.8 thou/uL (0.11-0.59); #Neutrophils 7.7 thou/uL (1.40-6.50); %Basophils 0.1 % (0.0-1.0); %Eosinophils 8.6 % (0.0-10.0); %Lymphocytes 9.1 % (21.0-51.0); %Monocytes 7.8 % (0.0-10.0); %Neutrophils 74.4 % (42.0-75.0); Mean Corpuscular HGB CONC 32.4 g/dL (32.0-36.0); Mean Corpuscular Hemoglobin 31.6 pg (27.0-31.0); Mean Corpuscular Volume 97.5 fL (78.0-98.0); Mean Platelet Volume 7.5 fL (7.4-10.4); Platelet Count 276 thou/uL (130-400); Red Blood Cell (RBC) Count 3.81 mill/uL (4.20-5.40); White Blood Cell (WBC) Count 10.4 thou/uL (4.8-10.8)
[2019-02-09 17:07] LABS: ALT (SGPT) 13 U/L (8-55); AST (SGOT) 26 U/L (5-34); Alkaline Phosphatase 133 U/L (40-150); Anion Gap 15 mmol/L (10-20); BUN (Urea Nitrogen) 26 mg/dL (9.8-20.1); Bilirubin, Total 0.6 mg/dL (0.2-1.2); Calc. Creatinine Clearance 0 mL/min (70-130); Calcium 9.7 mg/dL (7.8-10.44); Carbon Dioxide 25 mmol/L (23-31); Chloride 103 mmol/L (98-107); Estimated GFR-MDRD 88; Globulin 2.9 g/dL (2.4-3.5); Glucose 97 mg/dL (83-110); Potassium 4.5 mmol/L (3.5-5.1); Protein, Total 5.9 g/dL (6.0-8.3); Sodium 138 mmol/L (136-145)
[2019-02-09] MEDS ORDERED: Furosemide 40 MG/4 ML VIAL ONE (17:13)
[2019-02-09] MEDS ORDERED: Nitroglycerin 2% Ointment 1 INCH/1 GM Packet ONE (17:13)
[2019-02-09] MEDS ORDERED: Ondansetron ODT 4 MG TAB SL PRN (20:32)
[2019-02-09] MEDS ORDERED: Acetaminophen 325 MG TAB PO PRN (20:32)
[2019-02-09] MEDS ORDERED: Ondansetron PF 4 MG/2 ML Vial IVP PRN ×2 (20:32→22:57)
[2019-02-09 21:23] LABS: Troponin I 0.029 ng/mL (< 0.028)
[2019-02-09] MEDS ORDERED: Nitroglycerin 2% Ointment 1 INCH/1 GM Packet TOP SCH (22:00)
[2019-02-09] MEDS ORDERED: hydrALAZINE 20 MG/ML VIAL SLOW IVP PRN (22:57)
[2019-02-10 00:57] LABS: Troponin I 0.028 ng/mL (< 0.028)
--- NOTE | 2019-02-10 04:20 | HP ---
PRIMARY CARE PHYSICIAN: Dr. Yamilet Smith. RAILROAD CAR CHECKER: Dr. Vega. SILK CONDITIONER: Dr. Momin. CHIEF COMPLAINT: Trouble breathing. HISTORY OF PRESENT ILLNESS: Ms. Garcia is a very pleasant 83-year-old female who has a history of hypertension as well as chronic diastolic heart failure. She also has a history of severe aortic stenosis and she is status post TAVR. She says over the last month or so she has been having trouble breathing, but most recently over the past 2 weeks. She says that she got to the point where she was having trouble walking and her legs "played out." She also noted that she was having consistently difficulty with her breathing. She says that she was currently in the inpatient rehab and she called her personal lines sales rep to make an appointment with Dr. Momin because of her trouble breathing. He was not in to see her and so therefore she went to see Dr. Vega. He evaluated her and did a chest x-ray, noted that she had increased fluid on her lungs and sent her to the ER for evaluation. The patient says she has been compliant with medications as well as diet. She recently had a transcutaneous aortic valve replacement in [place] and says that this was done about 4 months ago. She says a couple of months ago, she had an echocardiogram with Dr. Vega and says that he was pleased with the results. She does mention that she fell and hit her head about 3 months ago and had been in rehab for a few weeks after that. She had gone home for a couple of weeks and then went back to rehab via the [facility] [place] for what she says was coughing spell and generalized weakness. REVIEW OF SYSTEMS: CONSTITUTIONAL: She denies any fevers, chills, no night sweats, no weight loss. HEENT: She denies any headaches. No dizziness. No visual changes. No sore throat, rhinorrhea, or neck pain, no adenopathy. PULMONARY: She does complain of some coughing off and on, but she says this is actually improved. She says she is not able to get anything up. There is no hemoptysis. CARDIOVASCULAR: As the history of present illness. She denies any PND or orthopnea; however, no lower extremity edema, but just has the dyspnea on exertion. No palpitations. GASTROINTESTINAL: She has poor appetite. No nausea. No vomiting. No diarrhea. GENITOURINARY: No urinary frequency or hematuria. No hesitancy. MUSCULOSKELETAL: No muscle pains, weakness, or joint pains. NEUROLOGIC: No focal weakness or numbness. No seizures. PSYCHIATRIC: No symptoms of anxiety or depression. PAST MEDICAL HISTORY: Significant for hypertension, chronic diastolic heart failure, atrial fibrillation, critical aortic stenosis status post TAVR, obesity, and frequent urinary tract infections. PAST SURGICAL HISTORY: She has had a TAVR about 4 months ago, that was in [place]. She says she had a Watchman Device placed in [place] recently. Has had a history of cataract surgery, colonoscopy, appendectomy, bypass surgery, and knee surgery. ALLERGIES: TO ADVIL AND DAYPRO, WHICH CAUSES HER TO ITCH; LORAZEPAM CAUSES HER TO BECOME HYPERACTIVE; AND PENICILLIN CAUSES ARM SWELLING. SOCIAL HISTORY: She is , has 2 sons. She and her live at home. They have been 67 years. They have full-time caregivers. She is a nonsmoker and nondrinker. She would prefer to be do not resuscitate. FAMILY HISTORY: Significant for congestive heart failure in her mother and father had coronary artery disease. CURRENT MEDICATIONS: Include; 1. Albuterol nebs p.r.n. 2. Allopurinol 300 mg daily. 3. Pulmicort p.r.n. 4. Calcium carbonate 500 mg twice a day. 5. Enalapril 20 mg daily. 6. Prozac 40 mg daily. 7. Lasix 40 mg twice daily. 8. Gabapentin 300 mg twice a day as needed. 9. [place] 10/325 q.6 as needed. 10. Magnesium oxide 400 mg daily. 11. Protonix 40 mg daily. 12. Crestor 5 mg at bedtime. 13. CoQ10 at 200 mg daily. 14. Aspirin 81 mg daily. 15. Potassium chloride 20 mEq a day. PHYSICAL EXAMINATION: GENERAL: She is alert and oriented to person, place, and time and situation. She is well developed and well nourished. She does not appear to be in any distress. VITAL SIGNS: Blood pressure was 137/72, heart rate 61, respiratory rate is 16, temperature is 98.3. HEENT: Pupils are equal, round, and reactive. Extraocular muscles are intact. Her sclerae are anicteric. Throat, no erythema, no exudates. NECK: No adenopathy. No bruits. No organomegaly. LUNGS: She has bilateral rales, very fine, but present in both lung sanchez, an occasional rhonchi. No wheezing. CARDIOVASCULAR: She has a very soft systolic murmur in the aortic area, it is nonradiating. No clicks or rubs. ABDOMEN: Obese, it is soft, it is nontender, nondistended. Positive for bowel sounds. No rebound or guarding. EXTREMITIES: There is no edema. NEUROLOGICAL: The exam is nonfocal. SKIN AND INTEGUMENT: She does have some hyperpigmentation from old bruising in the upper extremities, some mild venous stasis changes in her lower extremities. LABORATORY RESULTS: White blood cell count 10.4, hemoglobin is 12, hematocrit is 37.1, and platelet count is 276. Sodium 138, potassium 4.5, chloride is 103, CO2 is 25, BUN of 26, creatinine 0.64, glucose is 97. Natriuretic peptide is 406. Troponin is 0.29. IMAGING STUDIES: She had an EKG, which was ventricular paced, this is by my reading. Also chest x-ray showed some mild cardiomegaly. Sternotomy wires are present and increasing pulmonary vascular markings bilaterally, also by my reading. ASSESSMENT: 1. This is a pleasant 83-year-old female who presents to the emergency room with acute respiratory failure with hypoxemia due to congestive heart failure exacerbation. Her last echo demonstrated a preserved ejection fraction. She will be admitted to telemetry and started on IV Lasix. We will continue her home medications for heart failure and consult her wares sorter for further recommendations. She says she had an echocardiogram within the last 3 months, chronic atrial fibrillation. She has a Watchman Device in place, therefore, no need for anticoagulation. Her heart rate is currently stable. 2. Hypertension. We will restart enalapril and place her on p.r.n. medications. 3. Generalized weakness. We will continue PT and OT. 4. She will be placed on DVT and GI prophylaxis. Job ID: [id number]
[2019-02-10] MEDS: Furosemide 40 MG/4 ML VIAL SLOW IVP SCH ×2 (05:08→15:09)
[2019-02-10] MEDS: Budesonide 0.5 MG/2 ML NEB NEB SCH ×2 (07:19→18:55)
[2019-02-10 08:39] LABS: #Eosinphils 1.2 thou/uL (0.0-0.7); #Lymphocytes 1.2 thou/uL (1.20-3.40); #Monocytes 0.8 thou/uL (0.11-0.59); #Neutrophils 6.5 thou/uL (1.40-6.50); %Basophils 0.1 % (0.0-1.0); %Eosinophils 12.2 % (0.0-10.0); %Lymphocytes 12.3 % (21.0-51.0); %Monocytes 8.5 % (0.0-10.0); %Neutrophils 66.9 % (42.0-75.0); Hemoglobin 12.5 g/dL (12.0-16.0); Mean Corpuscular HGB CONC 33.5 g/dL (32.0-36.0); Mean Corpuscular Hemoglobin 32.1 pg (27.0-31.0); Mean Corpuscular Volume 95.8 fL (78.0-98.0); Mean Platelet Volume 7.7 fL (7.4-10.4); Platelet Count 289 thou/uL (130-400); RBC Distribution Width 15.1 % (11.5-14.5); Red Blood Cell (RBC) Count 3.89 mill/uL (4.20-5.40); White Blood Cell (WBC) Count 9.6 thou/uL (4.8-10.8)
[2019-02-10 09:00] LABS: Anion Gap 12 mmol/L (10-20); BUN (Urea Nitrogen) 22 mg/dL (9.8-20.1); Calc. Creatinine Clearance 72 mL/min (70-130); Calcium 10.4 mg/dL (7.8-10.44); Carbon Dioxide 30 mmol/L (23-31); Chloride 101 mmol/L (98-107); Estimated GFR-MDRD Greater than 90; Glucose 84 mg/dL (83-110); Potassium 3.7 mmol/L (3.5-5.1); Sodium 139 mmol/L (136-145)
[2019-02-10] MEDS ORDERED: Enoxaparin Sodium 30 MG/0.3 ML SYRINGE SC SCH (09:00)
[2019-02-10] MEDS ORDERED: Potassium Chloride 20 MEQ TAB PO SCH ×2 (09:00→09:30)
[2019-02-10] MEDS ORDERED: Spironolactone 25 MG TAB PO SCH (09:30)
[2019-02-10] MEDS: Ubidecarenone 50 MG CAP PO SCH (09:32)
[2019-02-10] MEDS: FLUoxetine HCl 20 MG CAP PO SCH (09:33)
[2019-02-10] MEDS: Famotidine 20 MG TAB PO SCH ×2 (09:33→20:54)
[2019-02-10] MEDS ORDERED: Sodium Chloride 0.9% 10 ML ONE (13:00)
--- NOTE | 2019-02-10 13:29 | PDOC.PN ---
- Subjective Encounter Start Date: 02/10/19 Encounter Start Time: 13:26 Subjective: Admitted directly from cardiology office due to worsening SOB. -: Feeling better. Review of [facility] record from [facility] showed that patient was recently discharged from there on 01/09/2019 following treatment of CHF exacerbation. She also was admitted there recently prior (period unknown) during which she had E coli bacteremia and liver abscess for which she had PICC line placement and started on ertapenem daily) - Objective Resuscitation Status - Order Detail: 02/09/19 22:48 Resuscitation Status Routine Resuscitation Status: DNAR: NO Resuscitation Discussed with: discussed with the patient Vital Signs & Weight: Vital Signs (12 hours) Temp Pulse Resp BP BP Pulse Ox 02/10/19 12:00 98.0 F 71 18 120/60 98 02/10/19 09:36 139/64 02/10/19 08:00 98.1 F 63 16 139/64 98 02/10/19 07:19 61 16 93 L 02/10/19 03:20 97.9 F 67 19 120/51 L 95 Weight Weight 142 lb I&O: 02/09/19 02/10/19 02/11/19 06:59 06:59 06:59 Intake Total 200 Output Total 700 Balance -500 Result Diagrams: 02/10/19 08:03 02/10/19 08:03 Phys Exam - Physical Examination Constitutional: NAD (elderly femal) fatigued elderly female in no obvious distress HEENT: PERRLA, moist MMs Neck: supple fair air entry with few right basal crackles and some transmitted sound Cardiovascular: irregular soft murmur noted Gastrointestinal: soft, non-tender, no distention, positive bowel sounds Musculoskeletal: no edema, pulses present awake and conversational, moving all limbs but weakly Psychiatric: A&O x 3 Dx/Plan (1) Liver abscess Code(s): K75.0 - ABSCESS OF LIVER Status: Acute (2) E coli bacteremia Code(s): R78.81 - BACTEREMIA Status: Acute (3) Chronic indwelling [place] catheter Code(s): Z96.0 - PRESENCE OF UROGENITAL IMPLANTS Status: Acute (4) Chronic atrial fibrillation Code(s): I48.2 - CHRONIC ATRIAL FIBRILLATION Status: Acute (5) Physical deconditioning Code(s): R53.81 - OTHER MALAISE Status: Acute (6) Acute on chronic diastolic (congestive) heart failure Code(s): I50.33 - ACUTE ON CHRONIC DIASTOLIC (CONGESTIVE) HEART FAILURE Status : Acute (7) Chronic obstructive lung disease Code(s): J44.9 - CHRONIC OBSTRUCTIVE PULMONARY DISEASE, UNSPECIFIED Status: Acute (8) Urinary retention Code(s): R33.9 - RETENTION OF URINE, UNSPECIFIED Status: Acute Comment: pt has salinas catheter. Consult gynecology for ? pessary placement (9) HTN (hypertension) Code(s): I10 - ESSENTIAL (PRIMARY) HYPERTENSION Status: Chronic Comment: Monitor vital signs, titrate antihypertensives as needed - Plan Restart antibiotic for liver abscess/E coli bacteremia -: Continue diuretic as per cardiology. -: PT/OT to continue. -: Consult ID to help with duration of antibiotic therapy. -: Awaiting Urine and blood cultures. * .
[2019-02-10] MEDS ORDERED: Meropenem 1 GM in Sodium Chloride 0.9% 100 ML IVPB SCH (14:00)
--- NOTE | 2019-02-10 14:56 | CON ---
DATE OF CONSULTATION: HISTORY OF PRESENT ILLNESS: The patient is a pleasant 83-year-old woman, who presents with increasing dyspnea. The patient has a long history of coronary artery disease. She has previously undergone coronary bypass graft surgery. Most recently, the patient has developed progressive dyspnea. She underwent a TAVR recently. The patient has had difficulty with diastolic heart failure. She also has a history of chronic atrial fibrillation and has had placement of a Watchman device. The patient was in her usual state of health when she was admitted to the [facility] with congestive heart failure. She was released and sent home on oxygen therapy. She presented to my office yesterday with worsening dyspnea. She was admitted for further evaluation. The patient denies having any chest discomfort. PAST MEDICAL HISTORY: 1. Coronary artery disease. 2. Cardiomyopathy. 3. History of TAVR. 4. History of myocardial infarction. 5. Hypertension. 6. Sleep apnea. 7. Chronic atrial fibrillation. 8. Asthma. PAST SURGICAL HISTORY: She has had coronary bypass surgery x3, cholecystectomy, hysterectomy. SOCIAL HISTORY: Nonsmoker. ALLERGIES: ALLERGIC TO PENICILLIN. MEDICATIONS: On admission include: 1. Crestor 5 q.h.s. 2. Protonix 40 daily. 3. Enalapril 20 q.a.m. 4. Prozac 40 daily. 5. Magnesium 400 daily. 6. Allopurinol 300 daily. 7. Melatonin 5 q.h.s. 8. Plavix 75 daily. REVIEW OF SYSTEMS: Ten-point system otherwise unremarkable. PHYSICAL EXAMINATION: GENERAL: Obese woman, in mild distress. VITAL SIGNS: Blood pressure 120/50. NECK: Showed no jugular venous distention. LUNGS: Have crackles throughout both lung sanchez. HEART: Regular rate and rhythm. Normal S1, S2. No murmurs. ABDOMEN: Nondistended. EXTREMITIES: Show no edema. VASCULAR: Radial pulses 2+. LABORATORY DATA: White blood cell count 10.4, hemoglobin 12.0, hematocrit 37.1, and platelets 276. Sodium is 138, potassium 4.5, chloride 103, bicarbonate 25, BUN 26, creatinine 0.64. Troponin was 0.029. BNP was 406. Chest x-ray revealed marked bilateral pulmonary infiltrates suggestive of pulmonary edema. IMPRESSION: 1. Congestive heart failure secondary to diastolic dysfunction. 2. History of coronary artery bypass surgery. 3. History of transcatheter aortic valve replacement. 4. Chronic atrial fibrillation. 5. History of Watchman device. 6. Hypertension. 7. Asthma. 8. This patient presents with congestive heart failure. From a cardiac standpoint, she will be diuresed with IV Lasix. We will also start the patient on spironolactone. We will follow this patient with you through her hospitalization. Job ID: [id number]
[2019-02-10] MEDS: MEROPENEM 1 GM/50 ML 1 GM in Premix Bag 1 BAG IVPB SCH ×2 (15:09→20:52)
[2019-02-10] MEDS: Acetaminophen 325 MG TAB PO PRN (15:13)
--- NOTE | 2019-02-10 17:27 | CON ---
DATE OF CONSULTATION: CONSULTING PHYSICIAN: Marcellus Vega MD REASON FOR CONSULTATION: Pulmonary edema and hypoxemia. HISTORY OF THE PRESENT ILLNESS: An 83-year-old female, who came in the hospital with increasing shortness of breath, orthopnea, and paroxysmal nocturnal dyspnea. She also complained of leg swelling. She has been diagnosed with congestive heart failure and she has been placed on IV Lasix as well as continuing spironolactone that she is always on. I think she has a distant history of asthma, although it is very difficult to clearly delineate that from her previous records. She does see Dr. Momin in the office occasionally. It sounds like her main issue has been aortic stenosis. PAST MEDICAL HISTORY: 1. Severe aortic stenosis - now status post TAVR procedure. 2. Hypertension. 3. Atrial fibrillation. 4. Hyperlipidemia. 5. Obesity. 6. Obstructive sleep apnea. PAST SURGICAL HISTORY: 1. Cataract surgery. 2. Colonoscopy. 3. Appendectomy. 4. Coronary artery bypass grafting surgery. 5. TAVR procedure. 6. Knee surgeries. 7. Tonsillectomy. ALLERGIES: ADVIL, LORAZEPAM, PENICILLIN, OXAPROZIN, AND IBUPROFEN. FAMILY MEDICAL HISTORY: Unremarkable. SOCIAL HISTORY: Does not smoke. Does not consume alcohol. Does not use illicit drugs. She continues to live at home with her . She has four caretakers. REVIEW OF SYSTEMS: She says she has been plagued by recurrent urinary tract infections, which seem to trigger her issues. She denies any fever, chills, nausea, vomiting, chest pain, hemoptysis, melena, hematochezia, hematuria, or dysuria. PHYSICAL EXAMINATION: VITAL SIGNS: Temperature 98.0, pulse 71, respirations 18, O2 saturation 98% on 3 L, and blood pressure 120/60. GENERAL: She is in a recliner. Currently looks comfortable and in no distress. HEENT: Pupils reactive. Sclerae icteric. Oropharynx clear. NECK: No palpable adenopathy or JVD. CHEST: Median sternotomy incision well healed. LUNGS: She has bilateral inspiratory crackles best heard posteriorly. CARDIAC: S1 and S2. Irregularly irregular with a 2/6 systolic murmur at the left sternal border. ABDOMEN: Soft, nontender, and nondistended. EXTREMITIES: No clubbing or cyanosis. She has trace edema in her ankle region. NEUROLOGIC: Nonfocal. LABORATORY DATA: BNP is 332 after admission BNP of 406. Sodium 139, potassium 3.7, chloride 101, CO2 of 30, BUN 22, creatinine 0.6, and glucose 84. White blood cell count 9.6, hematocrit 37.3, and platelet count 289. Previous echocardiogram reports have shown an estimated LVEF of 50% to 55% with restrictive extremity with diastolic physiology. She has history of mild to moderate mitral regurgitation and severe aortic stenosis. I do not see repeat echo since her TAVR procedure. ASSESSMENT: 1. Acute diastolic congestive heart failure. 2. Acute hypoxic respiratory failure secondary to congestive heart failure. 3. Perhaps distant history of asthma. 4. Chronic urinary tract infections. The patient has a chronically indwelling Bishop. RECOMMENDATION: Continue diuresing as you are. Does not improve with diuretics, might consider CT of the chest in the future to look for interstitial lung disease. She did have a CT scan in 2013, which did not suggest interstitial lung disease. I will notify Dr. Momin's about the patient's admission. Job ID: [id number]
[2019-02-10] MEDS: Rosuvastatin 5 MG TAB PO SCH (20:54)
[2019-02-11 05:11] LABS: Anion Gap 11 mmol/L (10-20); BUN (Urea Nitrogen) 24 mg/dL (9.8-20.1); Calc. Creatinine Clearance 62 mL/min (70-130); Calcium 10.3 mg/dL (7.8-10.44); Carbon Dioxide 31 mmol/L (23-31); Chloride 102 mmol/L (98-107); Estimated GFR-MDRD 81; Glucose 90 mg/dL (83-110); Magnesium 1.6 mg/dL (1.6-2.6); Potassium 4.1 mmol/L (3.5-5.1); Sodium 140 mmol/L (136-145)
[2019-02-11] MEDS: MEROPENEM 1 GM/50 ML 1 GM in Premix Bag 1 BAG IVPB SCH ×3 (05:45→20:57)
[2019-02-11] MEDS: Furosemide 40 MG/4 ML VIAL SLOW IVP SCH ×2 (05:46→15:07)
[2019-02-11] MEDS: Budesonide 0.5 MG/2 ML NEB NEB SCH ×2 (07:52→19:14)
[2019-02-11] MEDS ORDERED: Sodium Chloride 0.9% 10 ML ONE (08:11)
[2019-02-11] MEDS ORDERED: Polyethylene Glycol 3350 17 GM Packet PO PRN (08:15)
--- NOTE | 2019-02-11 08:19 | PDOC.PN ---
- Subjective Encounter Start Date: 02/11/19 Encounter Start Time: 13:15 Subjective: Patient reports some pain from pressure sore on bottom. No other -: complaints. No SOB. No edema. - Objective Resuscitation Status - Order Detail: 02/09/19 22:48 Resuscitation Status Routine Resuscitation Status: DNAR: NO Resuscitation Discussed with: discussed with the patient MAR Reviewed: Yes Vital Signs & Weight: Vital Signs (12 hours) Temp Pulse Resp BP BP Pulse Ox 02/11/19 07:54 95 02/11/19 07:52 70 18 97 02/11/19 03:34 97.9 F 59 L 12 118/62 96 02/10/19 20:53 115/54 L Weight Admit Weight 142 lb Weight 141 lb I&O: 02/10/19 02/11/19 02/12/19 06:59 06:59 06:59 Intake Total 200 680 Output Total 700 1175 Balance -500 -495 Result Diagrams: 02/10/19 08:03 02/11/19 04:26 Phys Exam - Physical Examination Constitutional: NAD HEENT: moist MMs Respiratory: no wheezing, no rales, no rhonchi Cardiovascular: RRR Gastrointestinal: soft, positive bowel sounds Musculoskeletal: no edema Neurological: non-focal Psychiatric: normal affect Dx/Plan (1) Acute on chronic diastolic (congestive) heart failure Code(s): I50.33 - ACUTE ON CHRONIC DIASTOLIC (CONGESTIVE) HEART FAILURE Status : Acute Comment: diuresing, spironolactone added, cardiology following (2) Liver abscess Code(s): K75.0 - ABSCESS OF LIVER Status: Acute (3) E coli bacteremia Code(s): R78.81 - BACTEREMIA Status: Acute Comment: on Ertapenem at SNF via PICC, Meropenem while in hospital (4) Chronic atrial fibrillation Code(s): I48.2 - CHRONIC ATRIAL FIBRILLATION Status: Chronic (5) Aortic stenosis Code(s): I35.0 - NONRHEUMATIC AORTIC (VALVE) STENOSIS Status: Chronic Comment: s/p TAVR (6) Chronic indwelling [place] catheter Code(s): Z96.0 - PRESENCE OF UROGENITAL IMPLANTS Status: Chronic (7) Urinary retention Code(s): R33.9 - RETENTION OF URINE, UNSPECIFIED Status: Chronic Comment: pt has salinas catheter (8) Dyslipidemia Code(s): E78.5 - HYPERLIPIDEMIA, UNSPECIFIED Status: Chronic Comment: continue statin (9) HTN (hypertension) Code(s): I10 - ESSENTIAL (PRIMARY) HYPERTENSION Status: Chronic Comment: controlled (10) Pressure injury of sacral region, stage 2 Code(s): L89.152 - PRESSURE ULCER OF SACRAL REGION, STAGE 2 Status: Acute Comment: wound care following - Plan cont current plan of care, continue antibiotics, PT/OT, DVT proph w/lovenox, DVT proph w/SCDs * . - Discharge Day Encounter end time: 13:30
[2019-02-11] MEDS ORDERED: Mupirocin 2% Ointment 22 GM Tube TOP SCH (09:00)
[2019-02-11] MEDS ORDERED: Arformoterol 15 MCG/2 ML NEB NEB SCH (09:00)
[2019-02-11] MEDS ORDERED: Non-Formulary Item 1 EACH (Magnesium Oxide [Magnesium] 400 MG) PO SCH (09:00)
[2019-02-11] MEDS: Allopurinol 300 MG TAB PO SCH (09:13)
[2019-02-11] MEDS: Famotidine 20 MG TAB PO SCH ×2 (09:14→20:59)
[2019-02-11] MEDS: Magnesium Oxide 400 MG TAB PO SCH (09:14)
[2019-02-11] MEDS: Ubidecarenone 50 MG CAP PO SCH (09:14)
[2019-02-11] MEDS: Clopidogrel Bisulfate 75 MG TAB PO SCH (09:14)
[2019-02-11] MEDS: FLUoxetine HCl 20 MG CAP PO SCH (09:15)
[2019-02-11] MEDS: Potassium Chloride 20 MEQ TAB PO SCH (09:16)
[2019-02-11] MEDS: Enoxaparin Sodium 40 MG/0.4 ML SYRINGE SC SCH (09:16)
[2019-02-11] MEDS: Spironolactone 25 MG TAB PO SCH (09:16)
[2019-02-11] MEDS: Acetaminophen 325 MG TAB PO PRN (12:15)
[2019-02-11] MEDS: Mupirocin 2% Ointment 22 GM Tube TOP SCH ×4 (15:09→20:58)
[2019-02-11] MEDS ORDERED: ISOVUE-370 76%-LOCM 1 ML ONE (15:59)
[2019-02-11] MEDS: HYDROcodone/Acetaminophen 10/325 mg Tablet PO SCH ×2 (16:07→20:54)
--- NOTE | 2019-02-11 18:37 | PRG ---
DATE OF SERVICE: 02/11/2019 SUBJECTIVE: Josseline Garcia says she is feeling better. She had an appointment to see me 2 days ago. She showed up for appointment, but I was called from Radiology and told that she was on a stretcher and short of breath and they were not sure if they could get up an x-ray with her on a stretcher since portable machine downstairs in the office building. I recommended they take her to the emergency room. Apparently, she had an appointment with Dr. Vega. They took her up to Dr. Vega's office. He subsequently sent her to the emergency room and she was admitted. Chest radiograph showed findings consistent with congestive heart failure. Today, she says she is feeling better. She is lying in approximately 30 degrees in bed and is not tachypneic. OBJECTIVE: VITAL SIGNS: She is afebrile, heart rate 73, respiratory rate 16, oximetry is 95% on 2 L, and blood pressure is 98/56. Intake and output negative 495. LUNGS: Remarkable for crackles, one-third of the way up. HEART: Regular rhythm. ABDOMEN: Soft and nontender. EXTREMITIES: Without clubbing, cyanosis, or edema. LABORATORY DATA: Sodium 140, potassium 4.1, chloride 102, bicarb 31, BUN 24, creatinine 0.69. IMPRESSION: 1. Congestive heart failure. 2. Deconditioning. 3. Severe aortic stenosis, now status post transcatheter aortic-valve replacement. 4. Chronic atrial fibrillation. 5. History of asthma, for which I have followed her in the past. 6. History of coronary artery bypass grafting in the past. 7. History of knee surgery and deconditioning. I have recommended ongoing diuresis. Her blood pressure may be an issue. Recommend repeating a chest radiograph Saturday morning. Job ID: [id number]
[2019-02-11] MEDS: Arformoterol 15 MCG/2 ML NEB NEB SCH (19:14)
--- NOTE | 2019-02-11 19:30 | CT ---
EXAM: CT Abdomen W Con PROVIDED CLINICAL HISTORY: Follow up liver abscess. COMPARISON: None available FINDINGS: The heart is enlarged with partial visualization of what appears to represent a left atrial appendage occlusion device. Partial visualization of aortic valve replacement is noted. Surgical clips are seen in epicardial location. Increased linear interstitial densities are seen at each lung base which may be related to mild chron ic lung changes or possibly interstitial edema versus infectious process. Prominent vascular calcifications are seen in the abdominal aorta and involving visualized iliac arteries. Postcholecystectomy changes are noted. There is mild intra and extrahepatic biliary ductal dilatation likely attributable to reservoir effect from a cholecystectomy changes. A low-density area is seen within the posterior segment right hepatic lobe measuring 1.8 cm craniocau jabier x2.7 cm AP x1.2 cm transverse. This could potentially represent residual abscess collection. However, direct correlation with prior study is recommended to ensure that this represents decrease i n size of the presumed abscess collection as opposed to a hepatic lesion. No additional hepatic collection or mass is appreciated within the liver. Subcentimeter too small to characterize hypodense lesions are seen in each kidney. The spleen, pancreas, and bilateral adrenal glands demonstrate a normal CT appearance. Opacified small bowel is normal in caliber. There is colonic diverticulosis present involving the descending colon. No free fluid, fluid collection, or lymphadenopathy is seen in the abdomen or pelvis. Vertebroplasty changes are seen involving the T11 and T12 vertebral bodies. Compression fractures are seen involving the L2, L3, and L4 vertebral bodies of indeterminate age. Multilevel degenerative changes are seen in the lumbar spine. IMPRESSION: 1. Low-density masslike area within the right hepatic lobe with greatest measurement of 2.7 cm. Patie nt has reported history of abscess collection noted at outside institution. This may represent residual collection related to hepatic abscess, but direct correlation with the prior exam is recomme nded to ensure decrease in size of this hypodense area and to ensure that this does not represent a hepatic mass. 2. Cardiomegaly. 3. Postcholecystectomy changes with intra and extrahepatic biliary duct dilatation. 4. Compression fractures of several lumbar vertebral bodies. Exact ages are indeterminate on this exa m.
[2019-02-11] MEDS: Rosuvastatin 5 MG TAB PO SCH (20:58)
[2019-02-11] MEDS: Melatonin 3 MG TAB PO SCH (20:58)
[2019-02-11] MEDS: Gabapentin 300 MG CAP PO SCH (20:59)
[2019-02-11] MEDS ORDERED: Non-Formulary Item 1 EACH (Melatonin [Melatonin] 5 MG) PO SCH (21:00)
[2019-02-12] MEDS: HYDROcodone/Acetaminophen 10/325 mg Tablet PO SCH ×6 (02:13→21:16)
[2019-02-12] MEDS: Furosemide 40 MG/4 ML VIAL SLOW IVP SCH ×2 (05:33→13:28)
[2019-02-12] MEDS: MEROPENEM 1 GM/50 ML 1 GM in Premix Bag 1 BAG IVPB SCH ×2 (05:33→13:29)
--- NOTE | 2019-02-12 07:38 | PDOC.PN ---
- Subjective Encounter Start Date: 02/12/19 Encounter Start Time: 09:30 Subjective: Patient reports improvement in SOB. Edema better. No chest pain. No fever. - Objective Resuscitation Status - Order Detail: 02/09/19 22:48 Resuscitation Status Routine Resuscitation Status: DNAR: NO Resuscitation Discussed with: discussed with the patient MAR Reviewed: Yes Vital Signs & Weight: Vital Signs (12 hours) Temp Pulse Resp BP BP Pulse Ox 02/12/19 03:40 97.6 F 65 20 115/56 L 99 02/11/19 23:27 61 121/54 L 02/11/19 20:54 96/52 L 02/11/19 20:35 96 02/11/19 20:00 97.6 F 62 14 96/52 L 96 Weight Admit Weight 142 lb Weight 141 lb 7 oz I&O: 02/11/19 02/12/19 02/13/19 06:59 06:59 06:59 Intake Total 680 630 Output Total 1175 1070 Balance -495 -440 Result Diagrams: 02/10/19 08:03 02/11/19 04:26 Phys Exam - Physical Examination Constitutional: NAD HEENT: moist MMs Respiratory: no wheezing, no rhonchi rales in bases Cardiovascular: RRR, no significant murmur Gastrointestinal: soft, positive bowel sounds Musculoskeletal: no edema Neurological: non-focal Psychiatric: normal affect Dx/Plan (1) Acute on chronic diastolic (congestive) heart failure Code(s): I50.33 - ACUTE ON CHRONIC DIASTOLIC (CONGESTIVE) HEART FAILURE Status : Acute Comment: diuresing, spironolactone added, cardiology following (2) Liver abscess Code(s): K75.0 - ABSCESS OF LIVER Status: Acute (3) E coli bacteremia Code(s): R78.81 - BACTEREMIA Status: Acute Comment: on Ertapenem at SNF via PICC, Meropenem while in hospital (4) Chronic atrial fibrillation Code(s): I48.2 - CHRONIC ATRIAL FIBRILLATION Status: Chronic (5) Aortic stenosis Code(s): I35.0 - NONRHEUMATIC AORTIC (VALVE) STENOSIS Status: Chronic Comment: s/p TAVR (6) Chronic indwelling [place] catheter Code(s): Z96.0 - PRESENCE OF UROGENITAL IMPLANTS Status: Chronic (7) Urinary retention Code(s): R33.9 - RETENTION OF URINE, UNSPECIFIED Status: Chronic Comment: pt has salinas catheter (8) Dyslipidemia Code(s): E78.5 - HYPERLIPIDEMIA, UNSPECIFIED Status: Chronic Comment: continue statin (9) HTN (hypertension) Code(s): I10 - ESSENTIAL (PRIMARY) HYPERTENSION Status: Chronic Comment: controlled (10) Pressure injury of sacral region, stage 2 Code(s): L89.152 - PRESSURE ULCER OF SACRAL REGION, STAGE 2 Status: Acute Comment: wound care following - Plan cont current plan of care, continue antibiotics, PT/OT, DVT proph w/lovenox, DVT proph w/SCDs continue diuresis -: plan repeat CXR in AM * . - Discharge Day Encounter end time: 09:45
[2019-02-12] MEDS: Arformoterol 15 MCG/2 ML NEB NEB SCH ×2 (07:49→19:56)
[2019-02-12] MEDS: Budesonide 0.5 MG/2 ML NEB NEB SCH ×2 (07:51→19:57)
[2019-02-12] MEDS ORDERED: Metolazone 5 MG TAB PO SCH (08:45)
[2019-02-12] MEDS: Famotidine 20 MG TAB PO SCH ×2 (09:33→21:27)
[2019-02-12] MEDS: Magnesium Oxide 400 MG TAB PO SCH (09:33)
[2019-02-12] MEDS: Clopidogrel Bisulfate 75 MG TAB PO SCH (09:33)
[2019-02-12] MEDS: Ubidecarenone 50 MG CAP PO SCH (09:34)
[2019-02-12] MEDS: Spironolactone 25 MG TAB PO SCH (09:34)
[2019-02-12] MEDS: Potassium Chloride 20 MEQ TAB PO SCH (09:35)
[2019-02-12] MEDS: FLUoxetine HCl 20 MG CAP PO SCH (09:35)
[2019-02-12] MEDS: Allopurinol 300 MG TAB PO SCH (09:37)
[2019-02-12] MEDS: Enoxaparin Sodium 40 MG/0.4 ML SYRINGE SC SCH (09:37)
[2019-02-12] MEDS: Mupirocin 2% Ointment 22 GM Tube TOP SCH ×3 (09:38→21:16)
--- NOTE | 2019-02-12 11:34 | CON ---
DATE OF CONSULTATION: 02/11/2019 REASON FOR CONSULTATION: Positive blood cultures. HISTORY OF PRESENT ILLNESS: Ms. Garcia is known to me from last year when I saw her in February with a history of COPD, severe aortic stenosis, AFib with prior Watchman procedure, on anticoagulation and gout, on chronic allopurinol. 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 She had an episode of influenza A and admitted for sepsis to [facility] and had urinary infections with positive cultures. In February, we had reviewed her admissions to [facility] and there she had negative urine cultures with respiratory symptoms with transient temperature elevation. She also had a diagnosis of pneumonia. A few months later, the patient had transcutaneous aortic valve replacement done in [place]. Pacemaker had been implanted that had to be removed, because of infection. In October, she had a urinary tract infection with an ESBL organism and required treatment with IV antimicrobial therapy. In December, a cystic hepatic lesion was noticed to have enlarged. She had a percutaneous aspirate and identified liver abscess with the same ESBL E. coli and she received protracted treatment with ertapenem. Now, she presents with worsening dyspnea and a chest x-ray showed evidence consistent with congestive heart failure. She denied any fevers or chills, had some cough, but no sputum production and denied any abdominal pain. PAST MEDICAL HISTORY: Hypertension, diastolic heart failure, AFib, severe aortic stenosis with TAVR, I believe in May last year, recurrent UTIs, recently diagnosed liver abscess this year in December, which was managed with percutaneous aspirate and protracted IV ertapenem. The organism was found to be ESBL E. coli. She has had a Watchman device placed in [place] and cataract surgery, colonoscopies, appendectomy, bypass graft surgery, knee replacement. ALLERGIES: 1. ADVIL. 2. DAYPRO. 3. LORAZEPAM. 4. PENICILLIN WITH ANGIOEDEMA. SOCIAL HISTORY: for six 66 years. Lives at home, never smoker. FAMILY HISTORY: CHF, coronary artery disease. CURRENT MEDICATIONS: 1. Tylenol. 2. Coden. 3. DuoNeb. 4. Zyloprim. 5. Brovana. 6. Pulmicort. 7. Plavix. 8. Coenzyme. 9. Vasotec. 10. Lovenox. 11. Pepcid. 12. Prozac. 13. Neurontin. 14. Meropenem. 15. Sodium chloride. 16. Spironolactone. PHYSICAL EXAMINATION: VITAL SIGNS: T-max 98.6, blood pressure 98/56, pulse 73, respirations 16, and O2 saturation 95% 2 L nasal cannula O2. SKIN: She has an area of stage 2 pressure in the presacral region and another in the perianal region with some erythema noted. She has a PICC line in place and there is no lymphadenopathy. GENERAL: Appears chronically ill, but in no acute distress. HEENT: Ocular movements conjugate. Pale conjunctivae. Oral cavity with no abnormalities noted. NECK: Supple. No jugular vein distention. LUNGS: Symmetric air entry. Basilar crackles noted. HEART: S1, S2, irregular rate. No obvious murmurs. ABDOMEN: Soft, not distended or tender. No ascites. No bladder distention. EXTREMITIES: She is able to move extremities on command. No inflammatory changes in any of her joints. Pulses 1+ in dorsalis pedis. No edema. NEUROLOGIC: She is awake, oriented, follows commands, recognized me. LABORATORY DATA: White cell count 10.4, hemoglobin 12, platelets 276, 74% neutrophils. Chemistry with normal liver profile. Albumin 3.0, sodium 138 creatinine 0.64. We have 1 set of blood cultures with coagulase-negative Staph. From 2 days ago, the other set is no growth at 48 hours. Urine culture, no growth at 36 hours. IMAGING STUDIES: 1. Include a chest x-ray with cardiomegaly, pulmonary vascular congestion, perihilar interstitial airspace opacities. 2. Severe aortic stenosis, status post TAVR in [place], last year. 3. Episodes of UTI in the past. 4. Invasive UTI, treated in October with liver abscess identified at [facility] a month and a half ago, treated with protracted IV ertapenem. The treatment plan was to continue until February 05. A repeat CT scan of the abdomen is scheduled to be done at [facility] and this has not yet been carried out. 5. Worsening dyspnea with findings consistent with CHF, chest x-ray and clinical evaluation. 6. One out of 2 sets of blood cultures positive for coagulase-negative Staph. DISCUSSION: The patient has been admitted with decompensated congestive heart failure. The reason for this is not clear at this point, but the liver abscess needs to be re-staged to confirm cure with a repeat CT of the abdomen with IV contrast only. The coagulase-negative Staphylococcus organism is most likely contaminant of the sample and I would not recommend treating this finding at this point in time. Evidently, if the second set turns positive, then we will have to reassess. If the repeat liver study shows resolution of the abscess or marked improvement then we will recommend discontinuation of meropenem. Job ID: [id number] MTDD
--- NOTE | 2019-02-12 12:05 | PRG ---
DATE OF SERVICE: 02/12/2019 SUBJECTIVE: Josseline Garcia has no new complaints. She had a CT of her abdomen showing 2 cm right hepatic density. We will have the CT for comparison where she was reportedly had a liver abscess. OBJECTIVE: GENERAL: She is in no distress. VITAL SIGNS: She is afebrile, heart rate 60, blood pressure 120/57, respiratory rate 16, oximetry 94% on 3 L. LUNGS: Remarkable for crackles at lung bases. HEART: Regular rhythm. ABDOMEN: Soft and nontender. EXTREMITIES: Without asymmetry or edema. NEUROLOGIC: Nonfocal. LABORATORY DATA: There is no new lab today. IMPRESSION: 1. Congestive heart failure with a repeat radiograph in the morning. 2. Liver density of unclear significance to me. 3. History of a transcatheter aortic valve replacement. 4. History of myocardial infarction. 5. History of sleep apnea. 6. History of asthma. 7. Chronic atrial fibrillation. 8. Status post Watchman. PLAN: I met with her son this morning, answered all of the questions. [facility] [employer] manager in [place] told her that she did not have much longer to live. I have explained to the son that there is no way we can say that with certainty. We will continue to try to adjust her medicines and hopefully get her stable enough to stay out of the hospital for a while. Job ID: [id number]
[2019-02-12 12:20] VITALS: BMI 23.5
[2019-02-12] MEDS: Ondansetron ODT 4 MG TAB PO PRN (13:28)
[2019-02-12] MEDS ORDERED: Sodium Chloride 0.9% 250 ML 250 ML IVPB SCH ×2 (17:30→17:45)
[2019-02-12] MEDS: Gabapentin 300 MG CAP PO SCH (21:27)
[2019-02-12] MEDS: Rosuvastatin 5 MG TAB PO SCH (21:27)
[2019-02-12] MEDS: Melatonin 3 MG TAB PO SCH (21:27)
[2019-02-12] MEDS ORDERED: Sodium Chloride 0.9% 500 ML IV SCH (22:00)
--- NOTE | 2019-02-13 00:07 | PRG ---
DATE OF SERVICE: 02/12/2019 SUBJECTIVE: Awake, alert, feels a little better. No respiratory symptoms. No abdominal pain. OBJECTIVE: VITAL SIGNS: She has been afebrile since admission. BP 120/59, pulse 72. GENERAL: Appears in no distress. Awake, alert. HEENT: Ocular movements conjugate. LUNGS: With clear breath sounds. CARDIAC: S1, S2. Regular rate. ABDOMEN: Soft, not distended or tender. LABORATORY DATA: White cell count 9.6, hemoglobin 12.5, platelets 289. Sodium 140, creatinine 0.69. Two sets of blood cultures, 1/2 coagulase negative Staph, likely contaminant. ASSESSMENT AND DISCUSSION: Congestive heart failure, recurrent urinary tract infections in the past, liver abscess due to extended-spectrum beta-lactamase Escherichia coli, identified at [facility] recently, treated with an end date in February 05. The repeat CT scan at this time shows a 2.7-cm area which is smaller than the one at [facility] imaging study. At this point, we will discontinue meropenem. The coagulase-negative Staph is a contaminant and should not be treated. Job ID: [id number]
[2019-02-13] MEDS: HYDROcodone/Acetaminophen 10/325 mg Tablet PO SCH ×6 (01:43→20:43)
[2019-02-13 05:17] LABS: #Eosinphils 0.7 thou/uL (0.0-0.7); #Lymphocytes 1.2 thou/uL (1.20-3.40); #Monocytes 0.8 thou/uL (0.11-0.59); %Basophils 0.4 % (0.0-1.0); %Eosinophils 7.7 % (0.0-10.0); %Monocytes 9.3 % (0.0-10.0); %Neutrophils 68.6 % (42.0-75.0); Hemoglobin 11.2 g/dL (12.0-16.0); Mean Corpuscular HGB CONC 32.8 g/dL (32.0-36.0); Mean Corpuscular Hemoglobin 31.7 pg (27.0-31.0); Mean Corpuscular Volume 96.7 fL (78.0-98.0); Mean Platelet Volume 7.6 fL (7.4-10.4); Platelet Count 260 thou/uL (130-400); RBC Distribution Width 15.3 % (11.5-14.5); Red Blood Cell (RBC) Count 3.54 mill/uL (4.20-5.40); White Blood Cell (WBC) Count 8.7 thou/uL (4.8-10.8)
[2019-02-13 05:35] LABS: Anion Gap 11 mmol/L (10-20); BUN (Urea Nitrogen) 38 mg/dL (9.8-20.1); Calc. Creatinine Clearance 48 mL/min (70-130); Carbon Dioxide 28 mmol/L (23-31); Chloride 102 mmol/L (98-107); Estimated GFR-MDRD 60; Glucose 90 mg/dL (83-110); Potassium 4.6 mmol/L (3.5-5.1); Sodium 136 mmol/L (136-145)
[2019-02-13] MEDS: Arformoterol 15 MCG/2 ML NEB NEB SCH ×2 (07:29→20:02)
[2019-02-13] MEDS: Budesonide 0.5 MG/2 ML NEB NEB SCH ×2 (07:33→20:04)
--- NOTE | 2019-02-13 08:44 | RAD ---
CHEST 1 VIEW: HISTORY: Dyspnea. CHF. COMPARISON: 02/09/2019. FINDINGS: Cardiac silhouette is magnified and enlarged. Pulmonary vasculature remains engorged with widespread interstitial prominence that has improved slightly. Bilateral perihilar and bibasilar infiltrates a re slightly less pronounced than on the previous exam. Mediastinum remains midline with postoperativ e changes, aortic calcification, and a right upper extremity PICC. Metallic coils and clips at the l eft hilum and electronic device over the chest are again demonstrated. IMPRESSION: Slight interval improvement in radiographic appearance of pulmonary edema. POS: TPC
[2019-02-13] MEDS ORDERED: Furosemide 40 MG/4 ML VIAL SLOW IVP SCH (09:00)
[2019-02-13] MEDS: Ubidecarenone 50 MG CAP PO SCH (09:28)
[2019-02-13] MEDS: Enoxaparin Sodium 40 MG/0.4 ML SYRINGE SC SCH (09:28)
[2019-02-13] MEDS: FLUoxetine HCl 20 MG CAP PO SCH (09:29)
[2019-02-13] MEDS: Allopurinol 300 MG TAB PO SCH (09:29)
[2019-02-13] MEDS: Potassium Chloride 20 MEQ TAB PO SCH (09:30)
[2019-02-13] MEDS: Famotidine 20 MG TAB PO SCH ×2 (09:30→20:53)
[2019-02-13] MEDS: Clopidogrel Bisulfate 75 MG TAB PO SCH (09:30)
[2019-02-13] MEDS: Spironolactone 25 MG TAB PO SCH (09:31)
[2019-02-13] MEDS: Magnesium Oxide 400 MG TAB PO SCH (09:31)
[2019-02-13] MEDS: Mupirocin 2% Ointment 22 GM Tube TOP SCH ×3 (09:33→20:42)
--- NOTE | 2019-02-13 11:59 | PDOC.PN ---
- Subjective Encounter Start Date: 02/13/19 Encounter Start Time: 11:57 Doing ok. Up and around a very little bit. Breathing ok. - Objective Resuscitation Status - Order Detail: 02/09/19 22:48 Resuscitation Status Routine Resuscitation Status: DNAR: NO Resuscitation Discussed with: discussed with the patient Vital Signs & Weight: Vital Signs (12 hours) Temp Pulse Resp BP Pulse Ox 02/13/19 08:00 97.9 F 60 18 106/53 L 99 02/13/19 07:33 64 16 90 L 02/13/19 07:32 90 L 02/13/19 07:29 64 16 90 L 02/13/19 04:00 97.6 F 60 18 99/53 L 93 L Weight Admit Weight 142 lb Weight 147 lb 1.6 oz I&O: 02/12/19 02/13/19 02/14/19 06:59 06:59 06:59 Intake Total 630 1790 240 Output Total 1070 1050 Balance -440 740 240 Result Diagrams: 02/13/19 04:37 02/13/19 04:37 Phys Exam - Physical Examination Constitutional: NAD Respiratory: no wheezing, no rales, no rhonchi, clear to auscultation bilateral Cardiovascular: RRR, no significant murmur, no rub Gastrointestinal: soft, non-tender, no distention, positive bowel sounds Musculoskeletal: no edema Neurological: non-focal Psychiatric: normal affect, A&O x 3 Dx/Plan (1) S/P TAVR (transcatheter aortic valve replacement) Code(s): Z95.2 - PRESENCE OF PROSTHETIC HEART VALVE Status: Acute (2) Acute on chronic diastolic (congestive) heart failure Code(s): I50.33 - ACUTE ON CHRONIC DIASTOLIC (CONGESTIVE) HEART FAILURE Status : Acute Comment: diuresing, spironolactone added, cardiology following (3) E coli bacteremia Code(s): R78.81 - BACTEREMIA Status: Acute Comment: on Ertapenem at SNF via PICC, Meropenem while in hospital (4) Liver abscess Code(s): K75.0 - ABSCESS OF LIVER Status: Acute (5) Physical deconditioning Code(s): R53.81 - OTHER MALAISE Status: Acute (6) Pressure injury of sacral region, stage 2 Code(s): L89.152 - PRESSURE ULCER OF SACRAL REGION, STAGE 2 Status: Acute Comment: wound care following (7) Chronic atrial fibrillation Code(s): I48.2 - CHRONIC ATRIAL FIBRILLATION Status: Chronic (8) Chronic obstructive lung disease Code(s): J44.9 - CHRONIC OBSTRUCTIVE PULMONARY DISEASE, UNSPECIFIED Status: Acute (9) HTN (hypertension) Code(s): I10 - ESSENTIAL (PRIMARY) HYPERTENSION Status: Chronic Comment: controlled - Plan * Abx stopped as liver abscess appears improved overall. * BP dropped due to aggressive diuresis and meds. * ACEI discontinued. Fluid boluses given. * Pulm, ID, Cards following. * Moderate activity today in light of BP.
[2019-02-13] MEDS: Furosemide 40 MG/4 ML VIAL SLOW IVP SCH (15:11)
--- NOTE | 2019-02-13 17:14 | PRG ---
DATE OF SERVICE: 02/13/2019 SUBJECTIVE: Ms. Garcia is doing well. She had multiple family members in the room. She had no complaints. OBJECTIVE: VITAL SIGNS: She is afebrile, heart rate 60, respiratory rate is 18, oximetry is 99% on 1 L, blood pressure 106/53. LUNGS: Clear. HEART: Regular rhythm. ABDOMEN: Soft. LABORATORY DATA: White count 8.7, hemoglobin 11.2, platelets 260. Electrolytes are normal. BUN is 38. Creatinine is 0.89. Intake and outputs, positive 740. IMAGING DATA: Chest radiograph today shows improvement of her pulmonary edema. IMPRESSION: 1. Cardiogenic edema, clinically improving. 2. Deconditioning. 3. Advanced age. 4. History of liver abscess in the past with a [address] CT images from [facility] are not available for comparison. 5. History of transcatheter aortic valve replacement. 6. History of myocardial infarction. 7. History of asthma and sleep apnea. 8. History of Watchman procedure. PLAN: Continue followup. Try to increase her activity. They have 4 caretakers to watch over bed transfers as it is the biggest issue at this point in time. She may need to go back to a swing bed before she goes home to get where she gets more stable with her transfers. Met with the son and the daughters and answered all their questions. Job ID: [id number]
[2019-02-13] MEDS: Gabapentin 300 MG CAP PO SCH (20:53)
[2019-02-13] MEDS: Melatonin 3 MG TAB PO SCH (20:53)
[2019-02-13] MEDS: Rosuvastatin 5 MG TAB PO SCH (20:53)
[2019-02-14] MEDS: HYDROcodone/Acetaminophen 10/325 mg Tablet PO SCH ×6 (01:43→20:32)
[2019-02-14] MEDS: Furosemide 40 MG/4 ML VIAL SLOW IVP SCH ×2 (05:52→15:17)
[2019-02-14] MEDS: Budesonide 0.5 MG/2 ML NEB NEB SCH ×2 (07:41→18:40)
[2019-02-14] MEDS: Arformoterol 15 MCG/2 ML NEB NEB SCH ×3 (07:43→18:41)
[2019-02-14] MEDS: Enoxaparin Sodium 40 MG/0.4 ML SYRINGE SC SCH (08:39)
[2019-02-14] MEDS: Ubidecarenone 50 MG CAP PO SCH (08:39)
[2019-02-14] MEDS: Spironolactone 25 MG TAB PO SCH (08:40)
[2019-02-14] MEDS: Magnesium Oxide 400 MG TAB PO SCH (08:40)
[2019-02-14] MEDS: FLUoxetine HCl 20 MG CAP PO SCH (08:40)
[2019-02-14] MEDS: Clopidogrel Bisulfate 75 MG TAB PO SCH (08:40)
[2019-02-14] MEDS: Famotidine 20 MG TAB PO SCH ×2 (08:41→20:32)
[2019-02-14] MEDS: Potassium Chloride 20 MEQ TAB PO SCH (08:41)
[2019-02-14] MEDS: Allopurinol 300 MG TAB PO SCH (08:41)
[2019-02-14] MEDS: Mupirocin 2% Ointment 22 GM Tube TOP SCH ×3 (08:42→20:33)
--- NOTE | 2019-02-14 15:19 | PDOC.CTH ---
Cardiology Progress Note - Subjective The pt seen and examined. No overnight events. No cardiac complaints. she stated she can breath easier today. - Objective Vital Signs Temp Pulse Resp BP BP BP Pulse Ox 02/14/19 15:13 97.8 F 60 18 129/57 L 94 L 02/14/19 12:37 98.1 F 65 16 114/56 L 95 02/14/19 07:44 63 16 95 02/14/19 07:41 63 16 95 02/14/19 07:29 98.3 F 60 16 121/58 L 95 02/14/19 04:00 98.5 F 60 18 103/53 L 93 L Admit Weight 142 lb Weight 149 lb 02/13/19 02/14/19 02/15/19 06:59 06:59 06:59 Intake Total 1790 1560 240 Output Total 1050 2400 Balance 740 -840 240 - Physical Examination General/Neuro: alert & oriented x3 Neck: no JVD present Lungs: other: Heart: other: (irregular) Abdomen: soft Extremities: other: (No edema) - Telemetry Telemetry Rhythm: V paced with flutter with HR 60s - Labs Result Diagrams: 02/13/19 04:37 02/13/19 04:37 Troponin/CKMB Troponin I 0.028 ng/mL (< 0.028) 02/09/19 23:57 - Assessment/Plan 1. Acute on Chronic Diastolic HF - stable with Lasix 40mg IV BID and Aldactone; DEBRA was d/manjinder due to hypotensive; will start BBlocker or DEBRA/ARB with stable VS. 2. Chronic Afib with Watchmans' device - 3. S/P TAVR - on Plavix 4. CAD with hx of CABG x3 - 5. HTN - 6. Asthma/COPD 7. Hx of PM placement MAR reviewed Pt. seen and eval. by me. I agree with the A/P by the SCREENER AND BLENDER. Deconditioned pt. Chest clear. regular rhythm at this time. Pacing. gjm Review of Systems - Review of Systems Constitutional: reports: no symptoms reported EENTM: reports: no symptoms reported Respiratory: reports: no symptoms reported Cardiac (ROS): reports: no symptoms reported ABD/GI: reports: no symptoms reported : reports: no symptoms reported Musculoskeletal: reports: no symptoms reported
[2019-02-14] MEDS: Gabapentin 300 MG CAP PO SCH (20:32)
[2019-02-14] MEDS: Rosuvastatin 5 MG TAB PO SCH (20:32)
[2019-02-14] MEDS: Melatonin 3 MG TAB PO SCH (20:32)
--- NOTE | 2019-02-14 22:15 | PDOC.PN ---
- Subjective Encounter Start Date: 02/14/19 Encounter Start Time: 13:30 Feeling better. Breathing better. Edema down. - Objective Resuscitation Status - Order Detail: 02/09/19 22:48 Resuscitation Status Routine Resuscitation Status: DNAR: NO Resuscitation Discussed with: discussed with the patient Vital Signs & Weight: Vital Signs (12 hours) Temp Pulse Resp BP BP Pulse Ox 02/14/19 18:41 64 12 02/14/19 18:40 64 12 02/14/19 15:13 97.8 F 60 18 129/57 L 94 L 02/14/19 12:37 98.1 F 65 16 114/56 L 95 Weight Admit Weight 142 lb Weight 149 lb I&O: 02/13/19 02/14/19 02/15/19 06:59 06:59 06:59 Intake Total 1790 1560 970 Output Total 1050 2400 850 Balance 740 -840 120 Result Diagrams: 02/13/19 04:37 02/13/19 04:37 Phys Exam - Physical Examination Constitutional: NAD Respiratory: no wheezing, no rales, no rhonchi, clear to auscultation bilateral Cardiovascular: RRR II/ M Gastrointestinal: soft, non-tender, no distention Musculoskeletal: no edema Psychiatric: normal affect, A&O x 3 Dx/Plan (1) Acute on chronic diastolic (congestive) heart failure Code(s): I50.33 - ACUTE ON CHRONIC DIASTOLIC (CONGESTIVE) HEART FAILURE Status : Acute Comment: diuresing, spironolactone added, cardiology following (2) S/P TAVR (transcatheter aortic valve replacement) Code(s): Z95.2 - PRESENCE OF PROSTHETIC HEART VALVE Status: Acute (3) E coli bacteremia Code(s): R78.81 - BACTEREMIA Status: Acute (4) Liver abscess Code(s): K75.0 - ABSCESS OF LIVER Status: Acute Comment: S/P treatment. (5) Physical deconditioning Code(s): R53.81 - OTHER MALAISE Status: Acute (6) Pressure injury of sacral region, stage 2 Code(s): L89.152 - PRESSURE ULCER OF SACRAL REGION, STAGE 2 Status: Acute Comment: wound care following (7) Chronic atrial fibrillation Code(s): I48.2 - CHRONIC ATRIAL FIBRILLATION Status: Chronic (8) Chronic obstructive lung disease Code(s): J44.9 - CHRONIC OBSTRUCTIVE PULMONARY DISEASE, UNSPECIFIED Status: Acute (9) HTN (hypertension) Code(s): I10 - ESSENTIAL (PRIMARY) HYPERTENSION Status: Chronic Comment: controlled - Plan * Improving with diuretics. * Continue IV diuretics today. * Discussed with Cards. * Anticipate changing to po diuretics tomorrow. * Possible discharge on Saturday. * Looking at SNF/Swing rehab.
[2019-02-15] MEDS: HYDROcodone/Acetaminophen 10/325 mg Tablet PO SCH ×6 (01:44→21:16)
[2019-02-15] MEDS: Furosemide 40 MG/4 ML VIAL SLOW IVP SCH (04:11)
[2019-02-15] MEDS: Budesonide 0.5 MG/2 ML NEB NEB SCH ×2 (07:37→19:35)
[2019-02-15] MEDS: Arformoterol 15 MCG/2 ML NEB NEB SCH ×2 (07:38→19:35)
[2019-02-15] MEDS: Potassium Chloride 20 MEQ TAB PO SCH (08:39)
[2019-02-15] MEDS: Allopurinol 300 MG TAB PO SCH (08:40)
[2019-02-15] MEDS: Enoxaparin Sodium 40 MG/0.4 ML SYRINGE SC SCH (08:40)
[2019-02-15] MEDS: FLUoxetine HCl 20 MG CAP PO SCH (08:40)
[2019-02-15] MEDS: Clopidogrel Bisulfate 75 MG TAB PO SCH (08:40)
[2019-02-15] MEDS: Spironolactone 25 MG TAB PO SCH (08:40)
[2019-02-15] MEDS: Famotidine 20 MG TAB PO SCH ×2 (08:40→21:15)
[2019-02-15] MEDS: Magnesium Oxide 400 MG TAB PO SCH (08:40)
[2019-02-15] MEDS: Mupirocin 2% Ointment 22 GM Tube TOP SCH ×3 (08:41→21:17)
[2019-02-15] MEDS: Ubidecarenone 50 MG CAP PO SCH (08:41)
[2019-02-15] MEDS: Ondansetron ODT 4 MG TAB PO PRN (11:57)
--- NOTE | 2019-02-15 12:37 | PDOC.PN ---
- Subjective Encounter Start Date: 02/15/19 Encounter Start Time: 12:00 Feeling well. Breathing comfortably. - Objective Resuscitation Status - Order Detail: 02/09/19 22:48 Resuscitation Status Routine Resuscitation Status: DNAR: NO Resuscitation Discussed with: discussed with the patient Vital Signs & Weight: Vital Signs (12 hours) Temp Pulse Resp BP Pulse Ox 02/15/19 11:22 97.8 F 62 18 132/60 97 02/15/19 07:38 58 L 16 96 02/15/19 07:37 58 L 16 96 02/15/19 07:33 97.0 F L 64 18 114/55 L 96 02/15/19 04:08 97.2 F L 60 17 118/61 95 Weight Admit Weight 142 lb Weight 149 lb I&O: 02/14/19 02/15/19 02/16/19 06:59 06:59 06:59 Intake Total 1560 1570 Output Total 2400 1925 Balance -840 -355 Result Diagrams: 02/13/19 04:37 02/13/19 04:37 Phys Exam - Physical Examination Constitutional: NAD Respiratory: no wheezing, no rhonchi, clear to auscultation bilateral Mild bibasilar rales. Cardiovascular: RRR, no significant murmur Gastrointestinal: soft, non-tender, no distention, positive bowel sounds Musculoskeletal: no edema Neurological: non-focal Psychiatric: normal affect, A&O x 3 Skin: normal turgor Dx/Plan (1) Acute on chronic diastolic (congestive) heart failure Code(s): I50.33 - ACUTE ON CHRONIC DIASTOLIC (CONGESTIVE) HEART FAILURE Status : Acute Comment: diuresing, spironolactone added, cardiology following (2) S/P TAVR (transcatheter aortic valve replacement) Code(s): Z95.2 - PRESENCE OF PROSTHETIC HEART VALVE Status: Acute (3) Liver abscess Code(s): K75.0 - ABSCESS OF LIVER Status: Acute Comment: S/P treatment. (4) Physical deconditioning Code(s): R53.81 - OTHER MALAISE Status: Acute (5) Pressure injury of sacral region, stage 2 Code(s): L89.152 - PRESSURE ULCER OF SACRAL REGION, STAGE 2 Status: Acute Comment: wound care following (6) Chronic atrial fibrillation Code(s): I48.2 - CHRONIC ATRIAL FIBRILLATION Status: Chronic (7) Chronic obstructive lung disease Code(s): J44.9 - CHRONIC OBSTRUCTIVE PULMONARY DISEASE, UNSPECIFIED Status: Acute (8) HTN (hypertension) Code(s): I10 - ESSENTIAL (PRIMARY) HYPERTENSION Status: Chronic Comment: controlled - Plan * Has diuresed well. * Changed to po diuretics. * If she remains stable with po meds, can consider DC tomorrow. * Plan on SNF rehab/Swing bed.
[2019-02-15] MEDS: Furosemide 40 MG TAB PO SCH (13:47)
--- NOTE | 2019-02-15 14:30 | PDOC.CTH ---
Cardiology Progress Note - Subjective Pt.seen and eval. No new events overnight. - Objective Vital Signs Temp Pulse Resp BP Pulse Ox 02/15/19 11:22 97.8 F 62 18 132/60 97 02/15/19 07:38 58 L 16 96 02/15/19 07:37 58 L 16 96 02/15/19 07:33 97.0 F L 64 18 114/55 L 96 02/15/19 04:08 97.2 F L 60 17 118/61 95 Admit Weight 142 lb Weight 149 lb 02/14/19 02/15/19 02/16/19 06:59 06:59 06:59 Intake Total 1560 1570 Output Total 2400 1925 Balance -840 -355 - Physical Examination General/Neuro: alert & oriented x3 Neck: no JVD present Lungs: other: (inspiratory wheezing.) Heart: other: (slightli irreg.) Abdomen: soft - Labs Result Diagrams: 02/13/19 04:37 02/13/19 04:37 Troponin/CKMB Troponin I 0.028 ng/mL (< 0.028) 02/09/19 23:57 - Assessment/Plan 1. Acute on Chronic Diastolic HF - stable with Lasix 40mg IV BID and Aldactone; DEBRA was d/manjinder due to hypotensive; will start BBlocker or DEBRA/ARB with stable VS. 2. Chronic Afib with Watchmans' device - 3. S/P TAVR - on Plavix 4. CAD with hx of CABG x3 - 5. HTN - 6. Asthma/COPD 7. Hx of PM placement MAR reviewed
--- NOTE | 2019-02-15 19:08 | PRG ---
DATE OF SERVICE: 02/15/2019 SUBJECTIVE: Ms. Garcia is in no distress. She was smiling when I walk in the room, meeting with family. OBJECTIVE: VITAL SIGNS: She is afebrile, heart rate 62, respiratory rate 18, oximetry is 97, and blood pressure is in the 90s. LUNGS: Still remarkable for fine crackles at her bases. Intake and outputs -355. HEART: Regular rhythm. ABDOMEN: Soft. IMPRESSION: 1. Congestive heart failure, clinically improved. 2. Asthma, clinically not an issue this admission. 3. Deconditioning, scheduled to go back to [facility]. 4. History of chronic indwelling Bishop for frequent urinary tract infections. This has been in place for over 7 months. 5. Atrial fibrillation with a Watchman device. 6. Status post transcatheter aortic valve replacement. 7. Coronary artery disease with a history of a coronary artery bypass grafting. 8. History of pacemaker. 9. Hypertension. She is tentatively on the schedule. Hopefully, she will go back to for rehab at the [facility] this next week. I will be happy to see her in 3 to 4 weeks and check a chest x-ray to document clearing. Other than that, primary issues that are to be addressed by Cardiology. Job ID: [id number]
[2019-02-15] MEDS: Melatonin 3 MG TAB PO SCH (21:15)
[2019-02-15] MEDS: Rosuvastatin 5 MG TAB PO SCH (21:15)
[2019-02-15] MEDS: Gabapentin 300 MG CAP PO SCH (21:15)
[2019-02-16] MEDS: HYDROcodone/Acetaminophen 10/325 mg Tablet PO SCH ×4 (01:01→12:05)
[2019-02-16 05:42] LABS: Anion Gap 16 mmol/L (10-20); BUN (Urea Nitrogen) 52 mg/dL (9.8-20.1); Calc. Creatinine Clearance 43 mL/min (70-130); Calcium 9.9 mg/dL (7.8-10.44); Carbon Dioxide 26 mmol/L (23-31); Chloride 96 mmol/L (98-107); Estimated GFR-MDRD 50; Glucose 92 mg/dL (83-110); Potassium 5.2 mmol/L (3.5-5.1); Sodium 133 mmol/L (136-145)
[2019-02-16] MEDS: Budesonide 0.5 MG/2 ML NEB NEB SCH (07:00)
[2019-02-16] MEDS: Arformoterol 15 MCG/2 ML NEB NEB SCH (07:02)
[2019-02-16] MEDS: Spironolactone 25 MG TAB PO SCH (08:09)
[2019-02-16] MEDS: Potassium Chloride 20 MEQ TAB PO SCH (08:09)
[2019-02-16] MEDS: Allopurinol 300 MG TAB PO SCH (08:09)
[2019-02-16] MEDS: Clopidogrel Bisulfate 75 MG TAB PO SCH (08:09)
[2019-02-16] MEDS: Enoxaparin Sodium 40 MG/0.4 ML SYRINGE SC SCH (08:09)
[2019-02-16] MEDS: Ubidecarenone 50 MG CAP PO SCH (08:10)
[2019-02-16] MEDS: Magnesium Oxide 400 MG TAB PO SCH (08:10)
[2019-02-16] MEDS: FLUoxetine HCl 20 MG CAP PO SCH (08:10)
[2019-02-16] MEDS: Famotidine 20 MG TAB PO SCH (08:10)
[2019-02-16] MEDS: Furosemide 40 MG TAB PO SCH (08:10)
[2019-02-16] MEDS: Mupirocin 2% Ointment 22 GM Tube TOP SCH ×2 (08:11→14:12)
[2019-02-16 11:00] VITALS: BP 116/55; TEMP 97.7
[2019-02-17] MEDS ORDERED: Furosemide 40 MG TAB PO SCH (07:30)
== END 2019-02-16 15:30 | DRG 291 ==
LOC: ERS 15:33 → 2NO 20:31
PROVIDERS: ADMIT Internal Medicine; ATTEND Internal Medicine
DX: I11.0 Hypertensive heart disease with heart failure (principal); J96.01 Acute respiratory failure with hypoxia; K75.0 Abscess of liver; I50.33 Acute on chronic diastolic (congestive) heart failure; E78.5 Hyperlipidemia, unspecified; Z66 Do not resuscitate; I42.9 Cardiomyopathy, unspecified; R33.9 Retention of urine, unspecified; I48.2 Chronic atrial fibrillation; E66.9 Obesity, unspecified; J44.9 Chronic obstructive pulmonary disease, unspecified; F32.9 Major depressive disorder, single episode, unspecified; I95.9 Hypotension, unspecified; G47.33 Obstructive sleep apnea (adult) (pediatric); I35.0 Nonrheumatic aortic (valve) stenosis; Z96.659 Presence of unspecified artificial knee joint; L89.152 Pressure ulcer of sacral region, stage 2; Z96.0 Presence of urogenital implants; Z90.710 Acquired absence of both cervix and uterus; Z79.01 Long term (current) use of anticoagulants; Z90.49 Acquired absence of other specified parts of digestive tract; Z87.440 Personal history of urinary (tract) infections; I25.2 Old myocardial infarction; Z98.49 Cataract extraction status, unspecified eye; Z95.1 Presence of aortocoronary bypass graft; Z98.890 Other specified postprocedural states; Z95.2 Presence of prosthetic heart valve; Z88.0 Allergy status to penicillin; Z88.8 Allergy status to other drugs, medicaments and biological substances; Z68.24 Body mass index [BMI] 24.0-24.9, adult
CPT/HCPCS: 36415; 71045; 74160; 80048; 80053; 83735; 83880; 84484; 85025; 87040; 87086; 87149; 93005; 94640; 94760; 96374; J1650; J1940; J2185; J2405; J3490; J7050; J7620; J7626; Q0162

== ENCOUNTER 2019-03-06 16:59 | Inpatient (IN) | payer MEDICARE ==
[2019-03-06] MEDS ORDERED: Nitroglycerin 2% Ointment 1 INCH/1 GM Packet ONE (17:18)
[2019-03-06 17:53] LABS: #Eosinphils 0.1 thou/uL (0.0-0.7); #Lymphocytes 0.8 thou/uL (1.20-3.40); #Monocytes 0.6 thou/uL (0.11-0.59); #Neutrophils 8.3 thou/uL (1.40-6.50); %Basophils 0.2 % (0.0-1.0); %Eosinophils 0.6 % (0.0-10.0); %Lymphocytes 7.9 % (21.0-51.0); %Monocytes 6.5 % (0.0-10.0); %Neutrophils 84.8 % (42.0-75.0); Hemoglobin 12.8 g/dL (12.0-16.0); Mean Corpuscular HGB CONC 33.7 g/dL (32.0-36.0); Mean Corpuscular Hemoglobin 32.7 pg (27.0-31.0); Mean Corpuscular Volume 97.1 fL (78.0-98.0); Mean Platelet Volume 7.7 fL (7.4-10.4); Platelet Count 193 thou/uL (130-400); RBC Distribution Width 15.9 % (11.5-14.5); Red Blood Cell (RBC) Count 3.91 mill/uL (4.20-5.40); White Blood Cell (WBC) Count 9.8 thou/uL (4.8-10.8)
[2019-03-06 17:57] LABS: INR-International Normal Ratio 1.2; PTT 34.7 SEC (22.9-36.1); Prothrombin Time 14.8 SEC (12.0-14.7)
[2019-03-06 18:01] LABS: Actual Bicarbonate (HCO3a) 21.3 mEq/L (22-28); Analyzer IN Cardio ER; Base Excess (BEa) -1.8 mEq/L (-2.0 to +3.0); CO2 Tension 31.6 mmHg (35.0-45.0); Calcium, Ionized 1.21 mmol/L (1.12-1.30); Carboxyhemoglobin (COHb) 1.2 gm% (0.0-3.0); Hemoglobin (Hb) 13.6 g/dL (12.0-16.0); Potassium - ABG Lab 3.86 mmol/L (3.70-5.30); pH, Arterial 7.45 (7.35-7.45)
[2019-03-06 18:02] LABS: O2 Tension (PaO2) 56.8 mmHg (> 60.0); Puncture Site LB
--- NOTE | 2019-03-06 18:08 | RAD ---
Exam: Chest one view: HISTORY: Shortness of breath COMPARISON: 02/13/2019 FINDINGS: Postop midline sternotomy. Marked cardiomegaly. Bilateral vascular congestion with scattered intersti tial and alveolar opacity changes, showing little change from prior study. Bony demineralization. IMPRESSION: Marked cardiomegaly. Overall stable appearing bilateral vascular congestion and scattered interstitia l and alveolar opacity changes raising concern for some congestive heart failure. Arthrosis and degenerative change. Bony demineralization.
[2019-03-06 18:20] LABS: ALT (SGPT) 14 U/L (8-55); AST (SGOT) 16 U/L (5-34); Albumin 3.2 g/dL (3.4-4.8); Alkaline Phosphatase 164 U/L (40-150); Anion Gap 17 mmol/L (10-20); BUN (Urea Nitrogen) 22 mg/dL (9.8-20.1); Bilirubin, Total 0.8 mg/dL (0.2-1.2); Calc. Creatinine Clearance 0 mL/min (70-130); Carbon Dioxide 21 mmol/L (23-31); Chloride 103 mmol/L (98-107); Estimated GFR-MDRD 73; Globulin 3.4 g/dL (2.4-3.5); Glucose 93 mg/dL (83-110); Potassium 4.2 mmol/L (3.5-5.1); Protein, Total 6.6 g/dL (6.0-8.3); Sodium 137 mmol/L (136-145)
[2019-03-06] MEDS ORDERED: Furosemide 40 MG/4 ML VIAL ONE (18:59)
[2019-03-06 19:50] LABS: Lactic Acid 1.6 mmol/L (0.5-2.2)
[2019-03-06 22:05] LABS: Troponin I 0.025 ng/mL (< 0.028)
[2019-03-06] MEDS ORDERED: Ondansetron ODT 4 MG TAB SL PRN (23:28)
[2019-03-06] MEDS ORDERED: Ondansetron PF 4 MG/2 ML Vial IVP PRN (23:28)
[2019-03-07 00:03] LABS: Troponin I 0.036 ng/mL (< 0.028)
[2019-03-07] MEDS ORDERED: Senokot S 8.6-50 MG TAB PO PRN (00:18)
[2019-03-07] MEDS ORDERED: Guaifenesin DM 100-10/5 ML UDCUP PO PRN (00:18)
[2019-03-07] MEDS ORDERED: Bisacodyl 10 MG SUPP PR PRN (00:18)
[2019-03-07] MEDS ORDERED: Polyethylene Glycol 3350 17 GM Packet PO PRN (00:18)
[2019-03-07] MEDS: Albuterol Sulfate 1.25 MG/3 ML NEB NEB SCH ×4 (01:08→18:35)
[2019-03-07 01:34] LABS: Bilirubin Negative (Negative); Blood, Urine Negative (Negative); Clarity CLOUDY (Clear); Glucose, Urine (Dipstick) Negative (Negative); Leukocyte Moderate (Negative); Nitrite Positive (Negative); Protein, Urine (Dipstick) Negative (Neg-Trace); Urobilinogen 0.2 mg/dL (0.2-1.0)
[2019-03-07 01:35] LABS: Hyaline Casts/LPF 4-6 HYALINE CAST LPF (0-3 Hyaline); Pathc Cast-AUWi Flag 0.27 (0-2.49); RBC/HPF 0-3 HPF (0-3); Squamous Epithelial 0-3 HPF (0-3)
[2019-03-07 01:45] LABS: Bacteria/HPF 2+ HPF (None Seen); Crystals/HPF 1+ TRIPLE PHOS HPF (Negative)
[2019-03-07 01:47] LABS: Urine Culture Reflex Yes Yes
--- NOTE | 2019-03-07 03:54 | HP ---
REASON FOR ADMISSION: Acute respiratory failure with hypoxia, congestive heart failure exacerbation with diastolic dysfunction. HISTORY OF PRESENTING ILLNESS: Please note majority of this history is obtained by talking to patient's 2 sons at bedside and the ER physician as patient is on BiPAP and is short of breath. She has had shortness of breath and was saturating at 65% at [facility]. The patient normally is on 2 L 24/7 at [facility]. The patient also developed nausea, vomiting and could not sleep last night. She was finally transferred here. On arrival, the patient was brought by EMS in non-rebreather saturating at 100%. She was finally placed on BiPAP. She was discharged on the of this month to [facility]. The previous hospitalization was for heart failure with diastolic dysfunction as well. No fever as such at present. PAST MEDICAL AND SURGICAL HISTORY: History of CHF with diastolic dysfunction, aortic stenosis with TAVR, chronic atrial fibrillation with Watchman device, prior history of CABG for 3-vessel disease, hypertension. Cardiac catheterization done in June of 2018 showed patent grafts, chronic Bishop catheter for almost a year now, gout, depression, history of asthma, chronic paroxysmal atrial fibrillation, recurrent UTI, cataract surgery, prior colonoscopy, appendectomy, knee surgery. PERSONAL HISTORY: Does not abuse alcohol or drugs. She is currently at [facility]. She has been barely able to get up on her own, but has not walked much. FAMILY HISTORY: Significant for congestive heart failure in her mother and coronary artery disease in her father. ALLERGIES: TO HYDRALAZINE, LORAZEPAM, PENICILLIN, OXAPROZIN, AND MOTRIN. CURRENT MEDICATIONS: 1. Albuterol nebulizer q.4 hourly p.r.n. 2. Allopurinol 300 mg p.o. daily. 3. Brovana 15 mcg nebulizer twice daily. 4. Plavix 75 mg daily. 5. Prozac 40 mg p.o. q.a.m. 6. Neurontin 300 mg p.o. at bedtime. 7. [place] p.r.n. for pain. 8. Magnesium oxide 400 mg p.o. q.a.m. 9. Melatonin 5 mg p.o. at bedtime. 10. Protonix 40 mg daily. 11. MiraLAX 17 g p.r.n. 12. CoQ10 at 200 mg daily. 13. Lasix 40 mg p.o. daily. 14. Crestor 5 mg p.o. at bedtime. 15. Spironolactone 25 mg p.o. q.a.m. REVIEW OF SYSTEMS: Cannot be obtained as patient is short of breath and is not fully oriented. PHYSICAL EXAMINATION: GENERAL: The patient is an 83-year-old female who is currently on a BiPAP, in mild respiratory distress. VITAL SIGNS: Blood pressure 110/60, pulse 70 per minute, respiratory rate 26 per minute, temperature 100.3 degrees Fahrenheit, saturating 97% on BiPAP. NECK: Supple. No elevated JVD. HEENT: Eyes; extraocular muscles intact. Pupils reacting to light. Oral cavity, mucous membranes are dry. No exudates or congestion. CARDIOVASCULAR SYSTEM: S1, S2 heard. Regular rhythm. Murmur plus. RESPIRATORY SYSTEM: Air entry 1+ bilateral. Scattered rales plus bilateral. ABDOMEN: Soft. Bowel sounds heard. No tenderness, rigidity, or guarding. EXTREMITIES: Mild peripheral edema. No calf tenderness. VASCULAR SYSTEM: Peripheral pulses 1+ bilateral. No ischemic ulcerations or gangrene. CENTRAL NERVOUS SYSTEM: No gross focal deficits noted. The patient is awake, responds to verbal questions, but is not fully oriented. PSYCHIATRIC SYSTEM: No obvious hallucinations or delusions. LABORATORY DATA: Blood gas done shows a pH of 7.45, pCO2 of 31, PO2 of 56. UA is positive for nitrite, 7 to 10 wbc's and 2+ bacteria. Please note, this urinalysis is obtained by chronic indwelling Bishop catheter. Chest x-ray done shows cardiomegaly, pulmonary vascular congestion. H and H 12 and 38, platelet count 193, white count of 9.8, MCV is 97 with 84% neutrophils. PT 14.8, INR 1.2, BUN 22, creatinine 0.7, serum bicarb 21. Lactic acid 1.6. AST, ALT within normal limits, alkaline phosphatase 164, albumin is 3.2. Troponin the first 2 sets were negative, third set is 0.03. BNP 417. EKG done shows sinus rhythm at 74 beats per minute. There is RBBB seen and poor R-wave progression. CLINICAL IMPRESSION AND PLAN: Patient will be admitted to [facility] for acute on chronic congestive heart failure exacerbation with diastolic dysfunction, acute on chronic respiratory failure, currently on BiPAP. Please note, the patient is on home oxygen 01/04. She was also recently discharged on the to [facility] with similar diagnosis. She will be on Lasix 40 mg q.12 hourly, albuterol nebulizer q.6 hourly. We will consult Dr. Edmondson who is on-call for Pulmonology and Dr. Sheriff who is on-call for Cardiology. We will continue BiPAP and slowly wean her off to her home levels of oxygen. She is normally at 2 L by nasal cannula. We will continue with Zyloprim, Brovana inhaler, Plavix, Prozac, melatonin, Protonix, Crestor, and CoQ10 as before. Code status was discussed with the patient and her 2 sons at bedside; Mr. Rah Garcia and Feng Garcia, the two sons are also POA for her. They all agree for do not attempt to resuscitate. Job ID: [id number] MTDD
[2019-03-07 05:28] LABS: #Eosinphils 0.1 thou/uL (0.0-0.7); #Lymphocytes 0.7 thou/uL (1.20-3.40); #Monocytes 0.7 thou/uL (0.11-0.59); %Basophils 0.3 % (0.0-1.0); %Eosinophils 0.6 % (0.0-10.0); %Lymphocytes 6.9 % (21.0-51.0); %Monocytes 6.8 % (0.0-10.0); %Neutrophils 85.5 % (42.0-75.0); Hemoglobin 11.5 g/dL (12.0-16.0); Mean Corpuscular HGB CONC 33.7 g/dL (32.0-36.0); Mean Corpuscular Hemoglobin 32.8 pg (27.0-31.0); Mean Corpuscular Volume 97.4 fL (78.0-98.0); Mean Platelet Volume 7.9 fL (7.4-10.4); Platelet Count 174 thou/uL (130-400); RBC Distribution Width 15.8 % (11.5-14.5); Red Blood Cell (RBC) Count 3.51 mill/uL (4.20-5.40); White Blood Cell (WBC) Count 10.5 thou/uL (4.8-10.8)
[2019-03-07 05:48] LABS: Anion Gap 14 mmol/L (10-20); BUN (Urea Nitrogen) 23 mg/dL (9.8-20.1); Calc. Creatinine Clearance 58 mL/min (70-130); Carbon Dioxide 20 mmol/L (23-31); Chloride 105 mmol/L (98-107); Estimated GFR-MDRD 77; Glucose 97 mg/dL (83-110); Potassium 4.1 mmol/L (3.5-5.1); Sodium 135 mmol/L (136-145)
[2019-03-07] MEDS: Furosemide 40 MG/4 ML VIAL SLOW IVP SCH ×2 (05:58→14:25)
[2019-03-07] MEDS: Arformoterol 15 MCG/2 ML NEB NEB SCH ×2 (07:21→18:33)
[2019-03-07] MEDS ORDERED: Ondansetron PF 4 MG/2 ML Vial IVP PRN (08:16)
[2019-03-07] MEDS: Clopidogrel Bisulfate 75 MG TAB PO SCH (08:52)
[2019-03-07] MEDS: FLUoxetine HCl 20 MG CAP PO SCH (08:52)
[2019-03-07] MEDS: Allopurinol 300 MG TAB PO SCH (08:52)
[2019-03-07] MEDS: Enoxaparin Sodium 40 MG/0.4 ML SYRINGE SC SCH (08:53)
[2019-03-07] MEDS: Ubidecarenone 50 MG CAP PO SCH (08:53)
[2019-03-07] MEDS: Magnesium Oxide 400 MG TAB PO SCH (08:53)
[2019-03-07] MEDS ORDERED: predniSONE 20 MG TAB PO SCH (10:30)
--- NOTE | 2019-03-07 10:41 | PDOC.EVN ---
Event Note - Event Note Event Note: Patient seen and examined by my colleague earlier in the night. Doing better subjectively, can likely transfer to floor today. States she sees Dr. Vega and states she feels like this when she's having worsening heart failure, wishes to see he order entry representative. Patient otherwise is stable, will cont current plan of care for now. Will place call to Dr. Vega or education department registrar order entry representative if he's not available.
--- NOTE | 2019-03-07 13:03 | CON ---
DATE OF CONSULTATION: 03/07/2019 PRIMARY MANAGER FIELD SERVICE: Marcellus Vega. REASON FOR CONSULTATION: Heart failure. HISTORY OF PRESENT ILLNESS: Ms. Garcia is a very pleasant 83-year-old white female, who comes to the hospital for shortness of breath. She has a history of severe aortic stenosis, had underwent transcutaneous aortic valve replacement last year. She has done well. She has normal LV function, but has grade 3/3 diastolic dysfunction. She has been in the hospital several times for heart failure exacerbations, last time was about 3 to 4 weeks ago. She was diuresed and sent home. Currently, she just had worsening shortness of breath. She was admitted for CHF exacerbation, has been started on IV Lasix, is already feeling a little bit better. PAST MEDICAL HISTORY: 1. Coronary artery disease, status post CABG x3 with a DAVISON to the LAD, a vein graft to an OM, and a vein graft to the RCA. These were imaged before the TAVR in June of last year and they were widely patent. 2. Severe aortic stenosis, status post TAVR. 3. History of SC in the past. 4. Hypertension. 5. Sleep apnea. 6. Chronic atrial fibrillation, status post Watchman device. 7. Bronchial asthma. PAST SURGICAL HISTORY: 1. CABG x3 as above. 2. Cholecystectomy. 3. Hysterectomy. 4. Watchman device. 5. Heart catheterization in the past. SOCIAL HISTORY: No alcohol, tobacco, or drugs. FAMILY HISTORY: Noncontributory. OUTPATIENT MEDICATIONS: 1. Lactulose. 2. Vascepa 2 g p.o. b.i.d. 3. Ferrous sulfate. 4. CoQ10. 5. Aldactone 25 mg a day. 6. Crestor 5 mg at bedtime. 7. MiraLAX. 8. Protonix 40 mg a day. 9. Melatonin. 10. Magnesium oxide. 11. [place] p.r.n. 12. Neurontin 200 mg at bedtime. 13. Lasix 40 mg a day. 14. Prozac 20 mg a day. 15. Plavix 75 mg a day. 16. Allopurinol 200 mg q.a.m. ALLERGIES: 1. HYDRALAZINE GIVES HER SHORTNESS OF BREATH. 2. LORAZEPAM MAKES HER JITTERY. 3. PENICILLIN MAKES HER SWELL UP AND RED SKIN. 4. OXAPROZIN MAKES HER JITTERY. 5. IBUPROFEN GIVES HER DRY BOWEL. REVIEW OF SYSTEMS: A 12-point review of systems was done and was all negative unless stated in the history of present illness. PHYSICAL EXAMINATION: VITAL SIGNS: Temperature 98.1, pulse 70, respiratory rate of 27, sat 94% on 1 L nasal cannula. GENERAL: Awake, alert, and oriented x3, in no distress. HEENT: Normocephalic and atraumatic. NECK: Supple. LUNGS: Have mild crackles at the bases. CARDIOVASCULAR: S1 and S2. There is a grade 2/6 systolic murmur in the left sternal border. ABDOMEN: Soft. Positive bowel sounds. EXTREMITIES: No edema. SKIN: Warm dry. LABORATORY DATA: Laboratory work was reviewed. CBC with a white count of 10, hemoglobin of 11, hematocrit of 34, and platelet count of 174. Coags were reviewed. ABG was reviewed. Chemistry was reviewed. Troponin negative x2. BNP was 417. UA had positive nitrites. ASSESSMENT AND PLAN: 1. Acute on chronic diastolic congestive heart failure, significantly improved. She seems very close to being euvolemic right now. Her BNP was significantly that high. 2. Urinary tract infection. Positive nitrites on urine study. I would recommend starting treatment for this. We will leave this up to the primary team. 3. Severe aortic stenosis, status post transcatheter aortic valve replacement, doing well on recent echo. 4. Coronary artery disease, status post coronary artery bypass grafting x3, widely patent grafts on catheterization in June of last year. Thank you for letting me to participate in the care of your patient. Job ID: [id number]
--- NOTE | 2019-03-07 16:53 | CON ---
DATE OF CONSULTATION: HISTORY OF PRESENT ILLNESS: Josseline Garcia is an 83-year-old female from [place], [place], who was just discharged from the hospital for [id number] respiratory failure, decompensated, presents to the hospital again with shortness of breath and cough. No fever or chills. Saturations are 74% on 4 L when she arrived; she was given neb treatments, improved to 96%. Chest x-ray shows increased markings, scoliosis, kyphosis. She has severe limitation to activity. Mostly, she can barely walk even 30 feet without getting markedly short of breath. PAST MEDICAL HISTORY: CHF, cardiac arrhythmia, atrial fibrillation, hyperlipidemia, COPD though she has never smoked, and previous spinal stenosis. PAST SURGICAL HISTORY: Past surgeries have included otherwise cholecystectomy, cataract, colonoscopy, appendix, bypass surgery, right foot surgery, knee surgery, hysterectomy. MEDICATIONS: Recent discharge home medications include: 1. Spironolactone 25 a day. 2. Crestor 5. 3. Protonix 40. 4. Hydrocodone. 5. Gabapentin 300. 6. Lasix 40. 7. Prozac 40. 8. Plavix 75. 9. Allopurinol. ALLERGIES: 1. PENICILLIN. 2. HYDRALAZINE. 3. ADVAIR. REVIEW OF SYSTEMS: Otherwise, unremarkable. PHYSICAL EXAMINATION: VITAL SIGNS: Her O2 saturation this morning is 96% on supplemental oxygen, respirations are 20, pulse 80, blood pressure 120/50. She is afebrile. CHEST: Bilateral crackles. CARDIAC: Normal S1 and S2. No gallops. ABDOMEN: No masses. LABORATORY DATA: White count 10,000, H and H are unremarkable. Lytes are normal. Prolactin is elevated. Her BNP was 417, mildly elevated. ASSESSMENT AND PLAN: Molvx-cy-wexblvo respiratory failure; combination of chronic obstructive pulmonary disease, congestive heart failure, severe deconditioning, and advanced age. She appears to have improved. Start low-dose steroids. Continue neb treatments. Continue diuretics. We will follow. Consultation note of 70 minutes, 50% in direct patient are. Job ID: [id number]
[2019-03-07] MEDS ORDERED: Prevnar 13-Val Conj/PF 0.5 ML SYRINGE IM ONE (21:00)
[2019-03-07] MEDS: Gabapentin 300 MG CAP PO SCH (21:33)
[2019-03-07] MEDS: Melatonin 3 MG TAB PO SCH (21:33)
[2019-03-07] MEDS: Rosuvastatin 5 MG TAB PO SCH (21:34)
[2019-03-08] MEDS: Albuterol Sulfate 1.25 MG/3 ML NEB NEB SCH ×4 (00:03→18:40)
[2019-03-08] MEDS: Furosemide 40 MG/4 ML VIAL SLOW IVP SCH (06:08)
[2019-03-08] MEDS: Arformoterol 15 MCG/2 ML NEB NEB SCH ×2 (07:39→18:40)
[2019-03-08] MEDS: Magnesium Oxide 400 MG TAB PO SCH (08:37)
[2019-03-08] MEDS: Clopidogrel Bisulfate 75 MG TAB PO SCH (08:37)
[2019-03-08] MEDS: Ubidecarenone 50 MG CAP PO SCH (08:37)
[2019-03-08] MEDS: FLUoxetine HCl 20 MG CAP PO SCH (08:37)
[2019-03-08] MEDS: predniSONE 20 MG TAB PO SCH (08:37)
[2019-03-08] MEDS: Allopurinol 300 MG TAB PO SCH (08:37)
[2019-03-08] MEDS: Enoxaparin Sodium 40 MG/0.4 ML SYRINGE SC SCH (08:38)
--- NOTE | 2019-03-08 10:32 | PRG ---
DATE OF SERVICE: 03/08/2019 SUBJECTIVE: Josseline is doing better this morning. She was placed back on a BiPAP last night. She has a home CPAP machine and low-flow O2. OBJECTIVE: VITAL SIGNS: Sats are 100% on 4 L, I decreased it down to 2 L; blood pressure 154/86; pulse 106; and respiratory rate 18. CHEST: No wheezing or crackles. CARDIAC: Normal S1-S2. No gallops. ABDOMEN: No masses. IMPRESSION AND PLAN: Congestive heart failure, chronic obstructive pulmonary disease, and sleep apnea. Improved. Continue PT supportive care. We will notify Dr. Momin. Job ID: [id number]
[2019-03-08] MEDS ORDERED: Furosemide 20 MG/2 ML VIAL SLOW IVP SCH (11:15)
--- NOTE | 2019-03-08 11:17 | PRG ---
DATE OF SERVICE: 03/08/2019 SUBJECTIVE: The patient is seen and examined at bedside. She feels gradually better. She started eating better. Her breathing is improved. She had bowel movement. OBJECTIVE: VITAL SIGNS: Blood pressure is 154/83, pulse is 63, respiratory rate is 20, O2 saturation is 100%. GENERAL: She looks tired and emaciated. HEENT: Her head is atraumatic and normocephalic. Eyes are PERRLA. Sclerae are nonicteric. Oral mucosa is somewhat dry. NECK: Supple. LUNGS: Few crackles at both bases. No wheezing. No rales. CHEST: Pacemaker is in place in the left upper chest area. HEART: S1 and S2 normal. No S3. No S4. ABDOMEN: Soft, nontender, nondistended. EXTREMITIES: No clubbing, cyanosis, or edema. NEUROLOGICAL: She follows my commands. She moves her all 4 extremities. There is no any motor or sensory deficit present. Cranial nerves are intact. LABORATORY DATA: None today. Microbiology is growing Proteus mirabilis in the urine and gram-positive lois, one out of two blood cultures. IMPRESSION: 1. She is on chronic respiratory failure. 2. Acute on chronic obstructive pulmonary disease. 3. Congestive heart failure. 4. Coronary artery disease, status post coronary artery bypass graft x3 with patent grafts on catheterization in June 2018. 5. History of severe aortic stenosis, status post transcatheter aortic valve replacement. 6. Chronic indwelling bladder catheter with positive urine culture, which sounds like colonization at this point. 7. Chronic atrial fibrillation with Watchman device. DISCUSSION: The patient is euvolemic. At this point, we are going to lower the dose on her Lasix to 20 mg IV push every 12 hours. We will continue clopidogrel. We will continue 20 mg of prednisone started by district manager major accounts sales. We will start PT/OT and continue DuoNeb q.6 hours. Job ID: [id number]
--- NOTE | 2019-03-08 12:00 | PDOC.CTH ---
Cardiology Progress Note - Subjective Breathing much better. - Objective Vital Signs Temp Pulse Resp Pulse Ox 03/08/19 11:01 97.4 F L 03/08/19 08:00 99 03/08/19 07:40 59 L 03/08/19 07:38 59 L 25 H 99 03/08/19 07:22 97.2 F L 03/08/19 04:00 97.6 F 03/08/19 02:15 57 L 03/08/19 00:04 67 03/08/19 00:00 98.0 F Weight 144 lb 03/07/19 03/08/19 03/09/19 06:59 06:59 06:59 Intake Total 240 640 Output Total 300 1375 Balance -60 -735 - Physical Examination General/Neuro: alert & oriented x3, NAD Neck: no JVD present Lungs: unlabored respirations Heart: RRR Abdomen: NT/ND Extremities: other: (no edema) - Telemetry Telemetry Rhythm: NSR - Labs Result Diagrams: 03/07/19 05:15 03/07/19 05:15 Troponin/CKMB Troponin I 0.036 ng/mL (< 0.028) H 03/06/19 23:27 - Assessment/Plan 1. Acute on chornic diastolic CHF 2. UTI 3. Severe s/p TAVR Jun 2018 4. CAD s/p CABG x 3, patent grafts Jun 2019 PLAN: - Agree on cutting back on Lasix. - Likely back to home PO dose tomorrow. - Abx per primary team for UTI.
[2019-03-08] MEDS: Furosemide 20 MG/2 ML VIAL SLOW IVP SCH (14:08)
[2019-03-08] MEDS: Melatonin 3 MG TAB PO SCH (21:16)
[2019-03-08] MEDS: Gabapentin 300 MG CAP PO SCH (21:16)
[2019-03-08] MEDS: Rosuvastatin 5 MG TAB PO SCH (21:16)
[2019-03-09] MEDS: Albuterol Sulfate 1.25 MG/3 ML NEB NEB SCH ×4 (00:04→18:45)
[2019-03-09] MEDS: Furosemide 20 MG/2 ML VIAL SLOW IVP SCH (05:07)
[2019-03-09] MEDS: Arformoterol 15 MCG/2 ML NEB NEB SCH ×2 (07:22→18:44)
[2019-03-09] MEDS ORDERED: Spironolactone 25 MG TAB PO SCH (09:00)
[2019-03-09 09:33] LABS: Anion Gap 15 mmol/L (10-20); BUN (Urea Nitrogen) 28 mg/dL (9.8-20.1); Calc. Creatinine Clearance 49 mL/min (70-130); Calcium 9.4 mg/dL (7.8-10.44); Carbon Dioxide 24 mmol/L (23-31); Chloride 102 mmol/L (98-107); Estimated GFR-MDRD 62; Glucose 76 mg/dL (83-110); Potassium 3.9 mmol/L (3.5-5.1); Sodium 137 mmol/L (136-145)
--- NOTE | 2019-03-09 09:39 | PRG ---
DATE OF SERVICE: 03/09/2019 SUBJECTIVE: The patient is seen and examined at the bedside. Her son is present in the room during my visit. She had 3 watery bowel movements in the last 24 hours. Apparently, she has been treated for liver abscess by Dr. Nguyễn at [facility] approximately a month ago. She completed her regimen, which was going on for approximately 6 weeks. So, she is high risk for Clostridium difficile colitis development. OBJECTIVE: VITAL SIGNS: Blood pressure is 131/61, pulse is 71, temperature is 96.7, respiratory rate is 21, and O2 saturation is 98% on 3 L by nasal cannula. HEENT: Head is atraumatic and normocephalic. Eyes are PERRLA. Sclerae are nonicteric. Oral mucosa is moist. NECK: Supple. LUNGS: Breath sounds diminished at both bases with bilateral crackles at both bases. No wheezing. HEART: S1 and S2 normal. No S3. No S4. ABDOMEN: Soft and nontender. Bowel sounds are present. No organomegaly. EXTREMITIES: No clubbing, cyanosis, or edema. NEUROLOGICAL: She is alert and oriented x4. There is no any sensory or motor deficits present. Cranial nerves are intact. LABORATORY DATA: Labs are pending. IMPRESSION: 1. Congestive heart failure. 2. Chronic respiratory failure. 3. Chronic obstructive pulmonary disease with acute exacerbation. 4. Coronary artery disease, status post coronary artery bypass graft x3 with patent grafts on catheterization in June 2018. 5. History of severe aortic stenosis and status post transcatheter aortic valve replacement. 6. Chronic indwelling bladder catheter with positive urine cultures, but no fever, felt to be colonization. 7. Chronic atrial fibrillation with Watchman device. 8. Diarrhea, rule out Clostridium difficile colitis. PLAN: Plan is to restart her Lasix 40 mg IV push every 12 hours. Start spironolactone. Chest x-ray. Start Florastor. Obtain Clostridium difficile antigen and toxins test on the next stool specimen, if it is diarrhea, and the patient is not on any antibiotic for her urinary specimen growth of Proteus mirabilis since this is most likely colonization. Job ID: [id number]
[2019-03-09] MEDS: FLUoxetine HCl 20 MG CAP PO SCH (09:44)
[2019-03-09] MEDS: Clopidogrel Bisulfate 75 MG TAB PO SCH (09:45)
[2019-03-09] MEDS: predniSONE 20 MG TAB PO SCH (09:45)
[2019-03-09] MEDS: Magnesium Oxide 400 MG TAB PO SCH (09:45)
[2019-03-09] MEDS: Allopurinol 300 MG TAB PO SCH (09:45)
[2019-03-09] MEDS: Enoxaparin Sodium 40 MG/0.4 ML SYRINGE SC SCH (09:45)
[2019-03-09] MEDS: Saccharomyces boulardii 250 MG CAP PO SCH (09:45)
[2019-03-09] MEDS: Ubidecarenone 50 MG CAP PO SCH (09:53)
--- NOTE | 2019-03-09 11:29 | RAD ---
CHEST 1 VIEW: Date: 03/09/19 INDICATION: History of CHF. COMPARISON: Prior exam dated 03/06/19. FINDINGS: The prominent cardiomegaly persists. Worsening interstitial and air space opacity involving both lung s. There are small bilateral pleural effusions which have been an interval development. No pneumothor ax is evident. Midline sternotomy changes are present. Aortic endograft stent is unchanged. Vertebrop lasty changes of the lower lumbar spine are stable. Diffuse osteopenia and scattered degenerative josi nge is similar appearing. Cholecystectomy clips are again seen within the right upper quadrant. Loop recorder overlies the left chest wall. An atrial appendage ablation device is again noted. IMPRESSION: Worsening interstitial and air space opacity of both lungs with persistent cardiomegaly and new bilat eral pleural effusions suspicious for worsening CHF. POS: CET
[2019-03-09] MEDS ORDERED: Metolazone 5 MG TAB PO SCH (12:45)
[2019-03-09] MEDS: Furosemide 40 MG/4 ML VIAL SLOW IVP SCH (15:12)
--- NOTE | 2019-03-09 16:34 | PRG ---
DATE OF SERVICE: 03/09/2019 OBJECTIVE: GENERAL: Ms. Garcia is afebrile. VITAL SIGNS: Heart rate in the 60s, blood pressure 143/64, respiratory rates in the teens to low 20s. LUNGS: Clear anteriorly and laterally. HEART: Regular rhythm. ABDOMEN: Soft. IMAGING STUDIES: Chest radiograph on admission was consistent with congestive heart failure. Intake and outputs quantitated 920 in and 900 out. She has a Bishop in place. Electrolytes are normal today. BUN 28, creatinine 0.87. IMPRESSION: 1. Congestive heart failure, frequent admissions recently. 2. Asthma, that has been a real clinical issue lately. 3. Deconditioning. 4. Status post transcatheter aortic-valve replacement in fall of 2017. 5. History of coronary artery bypass grafting with patent grafts in fall of 2017. PLAN: Continue supportive care. Job ID: [id number]
[2019-03-09] MEDS: Rosuvastatin 5 MG TAB PO SCH (22:15)
[2019-03-09] MEDS: Gabapentin 300 MG CAP PO SCH (22:15)
[2019-03-09] MEDS: Melatonin 3 MG TAB PO SCH (22:16)
[2019-03-10] MEDS: Albuterol Sulfate 1.25 MG/3 ML NEB NEB SCH ×2 (00:57→07:35)
[2019-03-10] MEDS: Furosemide 40 MG/4 ML VIAL SLOW IVP SCH ×2 (05:30→14:30)
[2019-03-10 05:58] LABS: Anion Gap 16 mmol/L (10-20); BUN (Urea Nitrogen) 33 mg/dL (9.8-20.1); Calc. Creatinine Clearance 52 mL/min (70-130); Calcium 9.7 mg/dL (7.8-10.44); Carbon Dioxide 23 mmol/L (23-31); Chloride 100 mmol/L (98-107); Estimated GFR-MDRD 66; Glucose 74 mg/dL (83-110); Potassium 4.3 mmol/L (3.5-5.1); Sodium 135 mmol/L (136-145)
[2019-03-10] MEDS: Arformoterol 15 MCG/2 ML NEB NEB SCH ×2 (07:35→20:02)
[2019-03-10] MEDS: predniSONE 20 MG TAB PO SCH (08:21)
[2019-03-10] MEDS: Spironolactone 25 MG TAB PO SCH (08:21)
[2019-03-10] MEDS: Clopidogrel Bisulfate 75 MG TAB PO SCH (08:21)
[2019-03-10] MEDS: Enoxaparin Sodium 40 MG/0.4 ML SYRINGE SC SCH (08:21)
[2019-03-10] MEDS: Allopurinol 300 MG TAB PO SCH (08:21)
[2019-03-10] MEDS: Ubidecarenone 50 MG CAP PO SCH (08:22)
[2019-03-10] MEDS: FLUoxetine HCl 20 MG CAP PO SCH (08:22)
[2019-03-10] MEDS: Magnesium Oxide 400 MG TAB PO SCH (08:22)
[2019-03-10] MEDS: Saccharomyces boulardii 250 MG CAP PO SCH (08:22)
[2019-03-10] MEDS: Vancomycin HCl 25 MG/ML Oral PO SCH ×3 (11:06→23:23)
--- NOTE | 2019-03-10 13:10 | PRG ---
DATE OF SERVICE: 03/10/2019 SUBJECTIVE: Ms. Garcia says she feels much better. Her son says she is only getting Lasix once a day at the rehab hospital. OBJECTIVE: VITAL SIGNS: She is afebrile. Heart rate 66, respiratory rate 18, oximetry is 99% on 1 L, blood pressure 132/65. LUNGS: Clear. HEART: Regular rhythm. ABDOMEN: Soft. LABORATORY DATA: Sodium 135, potassium 4.3, chloride 100, bicarbonate 23, BUN 33, creatinine 0.82. IMPRESSION AND PLAN: Volume overload. Her radiograph is not improved as much as she has clinically. I will continue to try to keep her in negative fluid balance. Her intake and output coming in today were negative 696. She has a chronic indwelling Bishop because of frequent urinary tract infections. I doubt she has interstitial lung disease as a primary problem. Other problems includes status post TAVR for severe aortic stenosis and status post coronary artery bypass grafting and patent grafts in June 2019, osteoporosis and kyphosis contributes to her dyspnea as well. Job ID: [id number]
--- NOTE | 2019-03-10 13:57 | PRG ---
DATE OF SERVICE: SUBJECTIVE: The patient is seen and examined at bedside. She was moved from IMCU to telemetry floor yesterday. She has some watery diarrhea. She had two watery bowel movements since yesterday. Otherwise, she is feeling better. She does not have any abdominal cramps. No nausea. No vomiting. No abdominal pain. OBJECTIVE: VITAL SIGNS: Blood pressure is 132/65, pulse is 66, temperature is 97.7, respirations 18, O2 saturation is 99% on 1 L by nasal cannula. HEENT: Her head is atraumatic and normocephalic. Sclerae are nonicteric. Oral mucosa is moist. NECK: Supple. LUNGS: Breath sounds diminished at both bases with some crackles at the right base. HEART: S1 and S2 normal. Somewhat irregular. No S3. No S4. ABDOMEN: Soft, nontender, nondistended. EXTREMITIES: No clubbing, cyanosis, or edema. NEUROLOGIC: She follows my commands. She moves all 4 extremities. LABORATORY DATA: Labs showed sodium of 135, potassium 4.3, chloride 100, CO2 of 23, BUN 33, creatinine 0.82, glucose 74. Microbiology, 1/2 cultures positive for Corynebacterium and coagulase negative Staphylococcus, which is very likely contamination. Her urine is growing Proteus mirabilis, which is sensitive to levofloxacin and her stool is positive for toxins of clostridioides. PLAN: Plan is to start her on vancomycin orally and Levaquin IV for her UTI. Continue Lasix. She has negative fluid balance. We will continue her Florastor and continue prednisone and DuoNeb. Continue spironolactone and Plavix along with the rest of the regimen. Job ID: [id number]
[2019-03-10] MEDS: Melatonin 3 MG TAB PO SCH (21:14)
[2019-03-10] MEDS: Rosuvastatin 5 MG TAB PO SCH (21:15)
[2019-03-10] MEDS: Gabapentin 300 MG CAP PO SCH (21:15)
[2019-03-11] MEDS: Vancomycin HCl 25 MG/ML Oral PO SCH ×4 (03:45→22:01)
[2019-03-11] MEDS: Furosemide 40 MG/4 ML VIAL SLOW IVP SCH (05:20)
[2019-03-11 06:07] LABS: Anion Gap 16 mmol/L (10-20); BUN (Urea Nitrogen) 40 mg/dL (9.8-20.1); Calc. Creatinine Clearance 44 mL/min (70-130); Calcium 9.7 mg/dL (7.8-10.44); Carbon Dioxide 24 mmol/L (23-31); Chloride 97 mmol/L (98-107); Estimated GFR-MDRD 57; Glucose 82 mg/dL (83-110); Potassium 3.4 mmol/L (3.5-5.1); Sodium 134 mmol/L (136-145)
[2019-03-11] MEDS: Arformoterol 15 MCG/2 ML NEB NEB SCH ×2 (07:06→19:54)
[2019-03-11] MEDS: Allopurinol 300 MG TAB PO SCH (08:05)
[2019-03-11] MEDS: Spironolactone 25 MG TAB PO SCH (08:05)
[2019-03-11] MEDS: predniSONE 20 MG TAB PO SCH (08:05)
[2019-03-11] MEDS: Ubidecarenone 50 MG CAP PO SCH (08:06)
[2019-03-11] MEDS: FLUoxetine HCl 20 MG CAP PO SCH (08:06)
[2019-03-11] MEDS: Enoxaparin Sodium 40 MG/0.4 ML SYRINGE SC SCH (08:06)
[2019-03-11] MEDS: Saccharomyces boulardii 250 MG CAP PO SCH (08:06)
[2019-03-11] MEDS: Magnesium Oxide 400 MG TAB PO SCH (08:06)
[2019-03-11] MEDS: Clopidogrel Bisulfate 75 MG TAB PO SCH (08:06)
[2019-03-11] MEDS ORDERED: Potassium Chloride 20 MEQ TAB PO SCH (09:30)
[2019-03-11] MEDS: Furosemide 40 MG TAB PO SCH (14:18)
--- NOTE | 2019-03-11 15:33 | PRG ---
DATE OF SERVICE: 03/11/2019 SUBJECTIVE: The patient was seen and examined at bedside. She just started some bleeding, which looks to me like vaginal bleeding after my evaluation and pelvic exam without any speculum. OBJECTIVE: VITAL SIGNS: Blood pressure is 131/69, pulse is 82, temperature is 98.1, respiratory rate is 20, and O2 saturation is 95% on 1 L by nasal cannula. HEENT: Head is atraumatic and normocephalic. Her conjunctivae are pinkish. Oral mucosa is moist. NECK: Supple. LUNGS: Breath sounds diminished at both bases with few crackles bilaterally at both bases. HEART: S1 and S2, somewhat irregular. No S3. No S4. ABDOMEN: Soft, nontender. Bowel sounds are present. No organomegaly. EXTREMITIES: No clubbing, cyanosis, or edema. NEUROLOGIC: She follows my commands. She moves her all 4 extremities. There are no any motor deficits. LABORATORY DATA: Sodium of 134, potassium 3.4, chloride 97, CO2 of 24, BUN 40, creatinine 0.93, and calcium 9.7. IMPRESSION: 1. Congestive heart failure. 2. Chronic respiratory failure. 3. Chronic obstructive pulmonary disease with acute exacerbation. 4. Acute vaginal bleeding of unclear etiology at this point. 5. Coronary artery disease, status post coronary artery bypass grafting x3 with patent grafts on catheterization in June 2018. 6. History of severe aortic stenosis and status post transcatheter aortic valve replacement. 7. Chronic indwelling bladder catheter with positive urine cultures, but no fever, felt to be colonization. 8. Chronic atrial fibrillation with Watchman device. 9. Clostridium difficile colitis. PLAN: Obtain [facility] consultation. Hold Plavix. Continue IV Lasix. Continue DuoNeb. Continue spironolactone. She did not have bowel movement today. She states that she has a hard time to sleep. Apparently, she was taking hydrocodone at home at night and this is not used while she is in the hospital, so we are going to restart her on hydrocodone, give her 40 mEq of KCl since her potassium is slightly low, we will give her Senokot for constipation, and see whether she can go back to the rehab. Job ID: [id number]
[2019-03-11 15:53] LABS: INR-International Normal Ratio 1.1; Prothrombin Time 14.2 SEC (12.0-14.7)
--- NOTE | 2019-03-11 17:01 | PDOC.EVN ---
Event Note - Event Note Event Note: OBGYN Consult DX: isolated Vaginal Bleed at 83 yo See full dictation
--- NOTE | 2019-03-11 17:46 | CON ---
DATE OF CONSULTATION: 03/11/2019 Time: 1645 Requesting MD: Reji LOCATION: The patient is in bed [address] [place] [address]. REASON FOR EVALUATION: The patient was admitted by Medicine with a principal diagnosis of acute respiratory failure with hypoxia and congestive heart failure with diastolic dysfunction. HISTORY OF PRESENT ILLNESS: In brief, this is an 83-year-old female, who has had a hysterectomy in the 1980s for uterine fibroids. She is being evaluated by Internal Medicine for a variety of medical conditions including acute on chronic congestive heart failure, acute and chronic respiratory failure, and she is also being treated for Clostridium difficile (C difficile). I received a consult today at approximately 1640 hours for an episode of vaginal bleeding which the patient had earlier today. She states that she was not bleeding at home and this was the first episode. She also has a history of a chronic Bishop, which has been in use. PAST MEDICAL HISTORY: Includes history of CHF with diastolic dysfunction, aortic stenosis, chronic atrial fibrillation with a Watchman device, prior CABG for three-vessel disease, hypertension. She had a cardiac cath done in June of 2018, which showed patent grafts. She also has a chronic Bishop for almost a year now. She has history of gout and asthma and chronic paroxysmal atrial fibrillation. She has had prior colonoscopy and recent cataract surgery. She has had appendectomy and bilateral knee surgery. ALLERGIES: ALLERGIES ARE TO HYDRALAZINE, LORAZEPAM, PENICILLIN, MOTRIN, AND OXAPROZIN. MEDICATIONS: In the hospital review of medications finds her list to include albuterol, allopurinol, Plavix, coenzyme Q10, Lovenox, Lasix, Prozac, Neurontin, Robitussin, melatonin, Zofran, Protonix, prednisone, Crestor, MiraLAX, Florastor , Senokot, Aldactone, and vancomycin. PHYSICAL EXAMINATION: VITAL SIGNS: Include a temperature of 97.6. Blood pressure is 128/65. Pulse is in 70s to 80s. GENERAL: Clinically, she is in no acute distress. She is a very pleasant and alert 83-year-old female. She is able to give a good history. ABDOMEN: Soft and nontender. PELVIC: I performed an external vaginal exam and find no active bleeding, but there was a small clot at the Bishop area. The urine from the Bishop is clear, so I do not suspect it is coming from the urethra. I explained to the patient that I would perform a manual/digital vaginal palpation and she agreed. One and two-finger vaginal inspection did not find any masses, indurated areas, or sumit bleeding. The vaginal cuff at the apex of the vagina felt intact without masses. Speculum exam was deferred as it was difficult to perform a speculum exam in the bed and in the room on [address]. DIAGNOSTIC STUDIES: Ultrasound: I consider doing a pelvic ultrasound, but since the patient has a history of hysterectomy, this is of low yield. Therefore, one will not be ordered at this time. ASSESSMENT: This is an 83-year-old postmenopausal patient being admitted for multiple medical problems with an episode of vaginal bleeding. I suspect that this may be due to vaginal atrophy. I do not find any overt tears, lacerations, or palpable masses on my vaginal inspection. I did explain that to her that it may possibly have different findings with a speculum exam, but this is limited at the time due to the patient's location. PLAN: 1. I have communicated by [employer] Arch[employer] to the patient's physician, who requested the consult. 2. No acute therapy at this time. 3. I agree with holding Plavix for now. 4. If bleeding continues, you may have to hold Lovenox for a short term. 5. May consider outpatient gynecology followup with any of the community OCEANOLOGY TEACHER physicians for continued care. Job ID: [id number] MTDD
--- NOTE | 2019-03-11 18:13 | PRG ---
DATE OF SERVICE: 03/11/2019 SUBJECTIVE: Ms. Garcia has no new complaints. She had apparently developed some vaginal bloody drainage, so she has been examined by a sterilization technician when I saw her. OBJECTIVE: She is afebrile. Heart rate 70, respiratory rate 16, oximetry is 96%, blood pressure 120/65. Apparently, found no cervix or uterus, and just found a dry vagina, which probably accounts for the blood. Intake and output, negative 960 today. We will continue with supportive care. I would recommend repeating a radiograph probably Saturday or Saturday after she is successfully diuresed a little more. Her creatinine has gone from 0.7 to 0.9, so she is probably approaching a point of euvolemia, but it may take a while to mobilize her pulmonary edema. We will continue to follow. Her asthma is clinically stable. Job ID: [id number]
[2019-03-11] MEDS: Rosuvastatin 5 MG TAB PO SCH (21:56)
[2019-03-11] MEDS: Gabapentin 300 MG CAP PO SCH (21:56)
[2019-03-11] MEDS: Melatonin 3 MG TAB PO SCH (21:57)
[2019-03-11] MEDS: Senokot S 8.6-50 MG TAB PO SCH (21:57)
[2019-03-11] MEDS: HYDROcodone/Acetaminophen 10/325 mg Tablet PO PRN (21:58)
[2019-03-12] MEDS: Vancomycin HCl 25 MG/ML Oral PO SCH ×4 (04:55→23:06)
[2019-03-12 06:06] LABS: #Eosinphils 0.1 thou/uL (0.0-0.7); #Monocytes 0.7 thou/uL (0.11-0.59); #Neutrophils 6.6 thou/uL (1.40-6.50); %Basophils 0.2 % (0.0-1.0); %Eosinophils 1.7 % (0.0-10.0); %Lymphocytes 12.1 % (21.0-51.0); %Neutrophils 78.1 % (42.0-75.0); Hemoglobin 14.5 g/dL (12.0-16.0); Mean Corpuscular HGB CONC 32.3 g/dL (32.0-36.0); Mean Corpuscular Hemoglobin 31.3 pg (27.0-31.0); Mean Corpuscular Volume 97.1 fL (78.0-98.0); Mean Platelet Volume 7.6 fL (7.4-10.4); Platelet Count 244 thou/uL (130-400); RBC Distribution Width 15.7 % (11.5-14.5); Red Blood Cell (RBC) Count 4.63 mill/uL (4.20-5.40); White Blood Cell (WBC) Count 8.5 thou/uL (4.8-10.8)
[2019-03-12 06:28] LABS: Anion Gap 18 mmol/L (10-20); BUN (Urea Nitrogen) 53 mg/dL (9.8-20.1); Calc. Creatinine Clearance 36 mL/min (70-130); Calcium 10.2 mg/dL (7.8-10.44); Carbon Dioxide 24 mmol/L (23-31); Chloride 96 mmol/L (98-107); Estimated GFR-MDRD 45; Glucose 82 mg/dL (83-110); Potassium 4.7 mmol/L (3.5-5.1); Sodium 133 mmol/L (136-145)
[2019-03-12] MEDS: Ubidecarenone 50 MG CAP PO SCH (09:34)
[2019-03-12] MEDS: Spironolactone 25 MG TAB PO SCH (09:34)
[2019-03-12] MEDS: FLUoxetine HCl 20 MG CAP PO SCH (09:34)
[2019-03-12] MEDS: Clopidogrel Bisulfate 75 MG TAB PO SCH (09:34)
[2019-03-12] MEDS: predniSONE 20 MG TAB PO SCH (09:34)
[2019-03-12] MEDS: Furosemide 40 MG TAB PO SCH ×2 (09:34→16:33)
[2019-03-12] MEDS: Enoxaparin Sodium 40 MG/0.4 ML SYRINGE SC SCH (09:35)
[2019-03-12] MEDS: Magnesium Oxide 400 MG TAB PO SCH (09:35)
[2019-03-12] MEDS: Senokot S 8.6-50 MG TAB PO SCH ×2 (09:35→21:29)
[2019-03-12] MEDS: Saccharomyces boulardii 250 MG CAP PO SCH (09:35)
[2019-03-12] MEDS: Allopurinol 300 MG TAB PO SCH (09:35)
--- NOTE | 2019-03-12 12:52 | PRG ---
DATE OF SERVICE: 03/12/2019 SUBJECTIVE: This morning, she says she is better, less short of breath. OBJECTIVE: VITAL SIGNS: Temperature 97, pulse 75, saturations are 100% on 2 L, blood pressure 103/58. CHEST: No wheezing, crackles. CARDIAC: Normal S1 and S2. No gallops. ABDOMEN: No masses. LABORATORY DATA: Creatinine is 1.15. IMPRESSION: Congestive heart failure, chronic obstructive pulmonary disease, severe deconditioning, advanced age, and azotemia. PLAN: Continue PT, supportive care, neb treatments, eventually placement. Job ID: [id number]
[2019-03-12] MEDS: Arformoterol 15 MCG/2 ML NEB NEB SCH ×2 (13:48→18:59)
--- NOTE | 2019-03-12 14:40 | PDOC.CTH ---
Cardiology Progress Note - Subjective The pt seen and examined. No overnight events. No cardiac complaints. The pt is easily de sat with talking. - Objective Vital Signs Temp Pulse Pulse Pulse Resp BP BP 03/12/19 13:50 71 16 03/12/19 11:47 97.4 F L 75 17 03/12/19 10:24 82 83 123/59 L 153/70 H 03/12/19 07:49 97.6 F 74 18 03/12/19 04:00 96.7 F L 77 20 BP Pulse Ox Pulse Ox Pulse Ox Pulse Ox 03/12/19 13:50 03/12/19 11:47 103/58 L 100 03/12/19 10:24 78 L 94 L 92 L 03/12/19 07:49 120/76 95 03/12/19 04:00 113/61 99 Weight 137 lb 4 oz 03/11/19 03/12/19 03/13/19 06:59 06:59 06:59 Intake Total 540 990 Output Total 1500 1600 Balance -960 -610 - Telemetry Telemetry Rhythm: afib - Labs Result Diagrams: 03/12/19 05:35 03/12/19 05:35 Troponin/CKMB Troponin I 0.036 ng/mL (< 0.028) H 03/06/19 23:27 - Assessment/Plan 1. Acute on chornic diastolic CHF - stable resp. with 2LNC and diuretics; not on bblocker or DEBRA/ARB due to hypotensive 2. Chronic Aifb with Watchman device placement - well controlled HR; on Lovenox ; may resume ASA at discharge 3. Severe s/p TAVR Jun 2018 4. CAD s/p CABG x 3, patent grafts Jun 2018 - on statin and Lovenox; not on bblocker or DEBRA/ARB due to hypotensive 5. HTN - stable without any bp meds 6. Asthma/COPD - on 2LNC 7. C diff - managed by PCP 8. Vaginal bleed - cont. bleeding today; hold Plavix per OB recommendation MAR reviewed Pt. seen and eval. by me. I agree with the A/P by the CHECKERING MACHINE ADJUSTER. We have discussed the pt. together.[email or web address] Review of Systems - Review of Systems Constitutional: reports: weakness EENTM: reports: no symptoms reported Respiratory: reports: no symptoms reported Cardiac (ROS): reports: no symptoms reported ABD/GI: reports: no symptoms reported : reports: no symptoms reported
--- NOTE | 2019-03-12 15:43 | PRG ---
DATE OF SERVICE: 03/12/2019 SUBJECTIVE: The patient is seen and examined at bedside. There are three family members present during my visit in the room. She just finished her physical therapy. She seems to be doing quite well. She did not have any bowel movement. Her appetite is good. OBJECTIVE: VITAL SIGNS: Blood pressure is 103/58, pulse is 75, temperature is 97.4, respirations 17, O2 saturation is 100% on 2 L by nasal cannula. HEENT: Head is atraumatic and normocephalic. Eyes are PERRLA. Sclerae are nonicteric. Oral mucosa is moist. NECK: Supple. LUNGS: She has diminished breath sounds at both bases and few wheezes bilaterally at both bases. No rales. HEART: S1 and S2 normal. No S3. No S4. There is a systolic murmur at the left sternal border 2/6. ABDOMEN: Soft, nontender. EXTREMITIES: No clubbing, cyanosis, or edema. NEUROLOGICAL: Examination unchanged. LABORATORY FINDINGS: Labs showed normal CBC. Sodium of 133, potassium 4.7, chloride 96, BUN 53, creatinine 1.15, glucose 82, and calcium 10.2. Microbiology, nothing new. IMPRESSION: 1. Congestive heart failure. 2. Chronic respiratory failure. 3. Chronic obstructive pulmonary disease with acute exacerbation. 4. Acute vaginal bleeding. Her Plavix was put on hold. She was seen by KITCHEN HAND who thinks that this was most likely vaginal bleeding secondary to vaginal atrophy. 5. Coronary artery disease, status post coronary artery bypass grafting x3 with patent grafts on catheterization in June 2018. 6. History of severe aortic stenosis and status post transcatheter aortic valve replacement. 7. Chronic indwelling bladder catheter with positive urine cultures, but no fever, felt to be colonization. 8. Chronic atrial fibrillation with Watchman device. 9. Clostridium difficile colitis, on vancomycin p.o. RECOMMENDATIONS: Her creatinine jumped today and so we will have to change her furosemide to p.o. We will continue prednisone. We will continue spironolactone. We will obtain BMP tomorrow morning. I will give her Dulcolax since she did not have any bowel movement, I believe three days ago was the last one. Now she is started on hydrocodone at night for the pain and this might cause more constipation and she will need probably senior living facility placement at the time of discharge. Job ID: [id number]
[2019-03-12] MEDS: Gabapentin 300 MG CAP PO SCH (21:29)
[2019-03-12] MEDS: Rosuvastatin 5 MG TAB PO SCH (21:30)
[2019-03-12] MEDS: Melatonin 3 MG TAB PO SCH (21:30)
[2019-03-13] MEDS: Vancomycin HCl 25 MG/ML Oral PO SCH ×4 (04:47→21:00)
[2019-03-13 06:06] LABS: Anion Gap 15 mmol/L (10-20); BUN (Urea Nitrogen) 62 mg/dL (9.8-20.1); Calc. Creatinine Clearance 36 mL/min (70-130); Calcium 9.9 mg/dL (7.8-10.44); Carbon Dioxide 25 mmol/L (23-31); Chloride 95 mmol/L (98-107); Estimated GFR-MDRD 45; Glucose 82 mg/dL (83-110); Potassium 4.1 mmol/L (3.5-5.1); Sodium 131 mmol/L (136-145)
[2019-03-13] MEDS: Senokot S 8.6-50 MG TAB PO SCH (09:24)
[2019-03-13] MEDS: Magnesium Oxide 400 MG TAB PO SCH (09:25)
[2019-03-13] MEDS: predniSONE 20 MG TAB PO SCH (09:25)
[2019-03-13] MEDS: FLUoxetine HCl 20 MG CAP PO SCH (09:25)
[2019-03-13] MEDS: Allopurinol 300 MG TAB PO SCH (09:25)
[2019-03-13] MEDS: Spironolactone 25 MG TAB PO SCH (09:26)
[2019-03-13] MEDS: Ubidecarenone 50 MG CAP PO SCH (09:26)
[2019-03-13] MEDS: Saccharomyces boulardii 250 MG CAP PO SCH (09:26)
[2019-03-13] MEDS: Enoxaparin Sodium 40 MG/0.4 ML SYRINGE SC SCH (09:26)
[2019-03-13] MEDS: Furosemide 40 MG TAB PO SCH ×2 (09:26→16:13)
[2019-03-13] MEDS: Arformoterol 15 MCG/2 ML NEB NEB SCH ×2 (11:31→19:25)
--- NOTE | 2019-03-13 16:27 | PRG ---
DATE OF SERVICE: 03/13/2019 SUBJECTIVE: The patient is seen and examined at bedside. She is doing relatively well, although she still requires 2 L of oxygen by nasal cannula. She started having some loose bowel movements and her appetite is fair. OBJECTIVE: VITAL SIGNS: Blood pressure is 122/67, pulse is 77, temperature 97.4, respirations 18, and O2 saturation is 100% on 2 L by nasal cannula. HEENT: Head is atraumatic and normocephalic. Eyes are PERRLA. Sclerae are nonicteric. Oral mucosa is moist. NECK: Supple. LUNGS: Bilateral crackles at both bases. HEART: S1 and S2 normal. No S3 or S4. Systolic murmur 2/6 at the left sternal border. ABDOMEN: Soft, nontender, and nondistended. EXTREMITIES: No clubbing, cyanosis, or edema. NEUROLOGICAL: She follows my commands. LABORATORY DATA: Labs showed sodium of 131, potassium 4.1, chloride 95, CO2 of 25, BUN 62, creatinine 1.16, and glucose 82. IMPRESSION: 1. Acute on chronic congestive heart failure. 2. Chronic respiratory failure. 3. Chronic obstructive pulmonary disease. 4. Acute vaginal bleeding, improved. Her Plavix is on hold per GANG RIPSAW OPERATOR recommendation, most likely this is caused by vaginal atrophy. 5. Coronary artery disease, status post coronary artery bypass grafting x3 with patent grafts on catheterization in June 2018. 6. History of severe aortic stenosis and status post transcatheter aortic valve replacement. 7. Chronic indwelling bladder catheter with positive urine cultures, felt to be colonization. 8. Chronic atrial fibrillation with Watchman device in place. 9. Clostridium difficile colitis. 10. Insomnia. RECOMMENDATION: Kiosk Sales Representative decided to transfer her out from telemetry floor as per Dr. Vega. I am going to start her on Restoril 15 mg nightly to help her sleep. Also, we are going to cut back on her laxatives since she started having some bowel movements. We will continue her other regimen as before and oral vancomycin, DuoNeb, and prednisone, and we are going to cut back on her Lasix dose from 40 to 20 twice a day and we will continue spironolactone 25 once a day. Job ID: [id number]
--- NOTE | 2019-03-13 18:53 | PRG ---
DATE OF SERVICE: 03/13/2019 SUBJECTIVE: Josseline Garcia done well overnight. She has no complaints. OBJECTIVE: GENERAL: She is in no distress. She only has walked about 10 feet in the room. LUNGS: Clear anteriorly and laterally and just has fine crackles at her bases. HEART: Regular rhythm. ABDOMEN: Soft. EXTREMITIES: Without edema. IMPRESSION: 1. Asthma, clinically stable. 2. Congestive heart failure, clinically stable. 3. Deconditioning. This is the biggest issue. She apparently will be going back to a skilled bed at some point. I will be happy to follow her as an outpatient, although her pulmonary issues with surrounded predominantly left ventricular dysfunction and cardiogenic pulmonary edema. I do not feel she has a primary lung disease. I will continue to follow her and be happy to repeat a radiograph once she is out of rehab. Job ID: [id number]
[2019-03-13] MEDS: Melatonin 3 MG TAB PO SCH (20:57)
[2019-03-13] MEDS: Rosuvastatin 5 MG TAB PO SCH (20:57)
[2019-03-13] MEDS: Temazepam 15 MG CAP PO SCH (20:57)
[2019-03-13] MEDS: Gabapentin 300 MG CAP PO SCH (20:57)
[2019-03-14] MEDS: Vancomycin HCl 25 MG/ML Oral PO SCH ×4 (04:00→21:11)
[2019-03-14] MEDS: Arformoterol 15 MCG/2 ML NEB NEB SCH ×2 (06:56→18:56)
[2019-03-14 09:42] LABS: Anion Gap 15 mmol/L (10-20); BUN (Urea Nitrogen) 70 mg/dL (9.8-20.1); Calc. Creatinine Clearance 35 mL/min (70-130); Calcium 10.4 mg/dL (7.8-10.44); Carbon Dioxide 28 mmol/L (23-31); Chloride 96 mmol/L (98-107); Estimated GFR-MDRD 39; Glucose 88 mg/dL (83-110); Potassium 3.9 mmol/L (3.5-5.1); Sodium 135 mmol/L (136-145)
[2019-03-14] MEDS: Spironolactone 25 MG TAB PO SCH (12:16)
[2019-03-14] MEDS: FLUoxetine HCl 20 MG CAP PO SCH (12:16)
[2019-03-14] MEDS: Magnesium Oxide 400 MG TAB PO SCH (12:16)
[2019-03-14] MEDS: Saccharomyces boulardii 250 MG CAP PO SCH (12:16)
[2019-03-14] MEDS: predniSONE 20 MG TAB PO SCH (12:18)
[2019-03-14] MEDS: Furosemide 40 MG TAB PO SCH ×2 (12:18→17:10)
[2019-03-14] MEDS: Allopurinol 300 MG TAB PO SCH (12:18)
[2019-03-14] MEDS: Enoxaparin Sodium 40 MG/0.4 ML SYRINGE SC SCH (12:20)
--- NOTE | 2019-03-14 12:26 | PRG ---
DATE OF SERVICE: 03/14/2019 SUBJECTIVE: The patient is seen and examined at the bedside. She seems to be doing better. Her appetite is good. She had some watery diarrhea, but this is improved. There is no any abdominal pain and she got some sleep last night finally after she took her sleeping pill. OBJECTIVE: VITAL SIGNS: Blood pressure is 115/70, pulse is 77, temperature is 98.4, respirations 16, and O2 saturation is 90%, I believe on 2 L by nasal cannula. HEENT: Head is atraumatic and normocephalic. Eyes are PERRLA. Sclerae are nonicteric. Oral mucosa is moist. NECK: Supple. LUNGS: Few expiratory wheezes present and breath sounds somewhat diminished at both bases. HEART: S1, S2 normal. No S3. No S4. There is a systolic murmur at the left sternal border 2/6. ABDOMEN: Soft, nontender. Bowel sounds are present. No organomegaly. EXTREMITIES: No clubbing, cyanosis, or edema. NEUROLOGICAL: She is alert and oriented x4. There is no any motor deficits. LABORATORY DATA: Labs showed sodium of 135, potassium 3.9, chloride 96, CO2 of 28, BUN 70, creatinine 1.30, calcium is 10.4, glucose 88. Microbiology, no new findings. IMPRESSION: 1. Acute on chronic congestive heart failure. 2. Chronic obstructive pulmonary disease. 3. Acute vaginal bleeding, improved. Her Plavix is on hold per THREAD MARKER recommendation. 4. Coronary artery disease, status post coronary artery bypass grafting x3 with patent grafts on catheterization in June 2019. 5. History of severe aortic stenosis, status post transcatheter aortic valve replacement. 6. Chronic indwelling bladder catheter with positive urine culture, felt to be colonization. 7. Chronic atrial fibrillation with Watchman device in place. 8. Clostridium difficile colitis, on vancomycin orally. 9. Insomnia, improved. RECOMMENDATION: We are going to continue her current regimen. I will cut back on her diuretics since her creatinine is going up. We will continue her Restoril to get good rest at night and we will send [facility] PT continuation as soon as this can be arranged. Job ID: [id number]
[2019-03-14] MEDS: Ubidecarenone 50 MG CAP PO SCH (13:08)
[2019-03-14] MEDS: Temazepam 15 MG CAP PO SCH (21:10)
[2019-03-14] MEDS: Melatonin 3 MG TAB PO SCH (21:10)
[2019-03-14] MEDS: Rosuvastatin 5 MG TAB PO SCH (21:10)
[2019-03-14] MEDS: Gabapentin 300 MG CAP PO SCH (21:10)
[2019-03-15] MEDS: Vancomycin HCl 25 MG/ML Oral PO SCH ×4 (04:19→20:26)
[2019-03-15 05:32] LABS: Anion Gap 16 mmol/L (10-20); BUN (Urea Nitrogen) 69 mg/dL (9.8-20.1); Calc. Creatinine Clearance 48 mL/min (70-130); Calcium 9.2 mg/dL (7.8-10.44); Carbon Dioxide 22 mmol/L (23-31); Chloride 96 mmol/L (98-107); Estimated GFR-MDRD 57; Glucose 101 mg/dL (83-110); Potassium 4.1 mmol/L (3.5-5.1); Sodium 130 mmol/L (136-145)
[2019-03-15] MEDS: Arformoterol 15 MCG/2 ML NEB NEB SCH ×2 (06:40→19:21)
[2019-03-15] MEDS ORDERED: Enoxaparin Sodium 30 MG/0.3 ML SYRINGE SC SCH (09:00)
--- NOTE | 2019-03-15 09:12 | RAD ---
RADIOGRAPH CHEST 1 VIEW: DATE: 03/15/2019 TIME: 7:25 AM HISTORY: 83-year-old female with congestive heart failure. COMPARISON: 03/09/2019 FINDINGS: Again noted is the severe cardiomegaly. Again noted are the diffuse nodular interstitial densities bi laterally. This could represent chronic interstitial lung disease, acute pulmonary interstitial edema, or perhaps a combination of both. The lateral costophrenic angles are mildly indistinct. Bilat eral hemidiaphragms are mildly indistinct. No pneumothorax identified. Sternotomy wires. Moderate to severe DJD left glenohumeral joint. Very severe DJD right glenohumeral joint. There are interstiti al densities have improved slightly compared to the prior study. IMPRESSION: 1. Severe cardiomegaly, probable bilateral pleural effusions, and probable mild pulmonary interstitia l edema, are all evidence for congestive heart failure. 2. The pulmonary interstitial edema has improved since 03/09/2019. 3. Background of chronic pulmonary interstitial lung disease. 4. High-grade osteoarthrosis of the bilateral shoulders, including very severe osteoarthrosis of the right glenohumeral joint.
[2019-03-15] MEDS: Furosemide 40 MG TAB PO SCH ×2 (09:27→14:30)
[2019-03-15] MEDS: Spironolactone 25 MG TAB PO SCH (09:27)
[2019-03-15] MEDS: Saccharomyces boulardii 250 MG CAP PO SCH (09:28)
[2019-03-15] MEDS: FLUoxetine HCl 20 MG CAP PO SCH (09:30)
[2019-03-15] MEDS: Allopurinol 300 MG TAB PO SCH (09:30)
[2019-03-15] MEDS: Magnesium Oxide 400 MG TAB PO SCH (09:30)
[2019-03-15] MEDS: Ubidecarenone 50 MG CAP PO SCH (09:30)
[2019-03-15] MEDS: predniSONE 20 MG TAB PO SCH (09:31)
[2019-03-15] MEDS: Enoxaparin Sodium 40 MG/0.4 ML SYRINGE SC SCH ×2 (09:32→09:35)
[2019-03-15] MEDS ORDERED: Furosemide 40 MG/4 ML VIAL SLOW IVP SCH (13:00)
--- NOTE | 2019-03-15 13:52 | PRG ---
DATE OF SERVICE: 03/15/2019 SUBJECTIVE: The patient is seen and examined at the bedside. She does not have much complaints to offer. She had 2 soft bowel movements since yesterday. Her appetite is good. OBJECTIVE: VITAL SIGNS: Blood pressure is 121/74, pulse is 84, temperature 97.3, respirations 16, O2 saturation is 92% on 2 L by nasal cannula. HEENT: Her head is atraumatic and normocephalic. Sclerae are nonicteric. Oral mucosa is moist. NECK: Supple. LUNGS: Bilateral crackles at both bases, but somewhat diminished than yesterday. No wheezing. HEART: S1, S2, somewhat irregular. No S3. No S4. ABDOMEN: Soft, nontender. Bowel sounds are present. No organomegaly. EXTREMITIES: No clubbing, cyanosis, or edema. NEUROLOGIC: She follows my commands. She moves all 4 extremities. There is no any motor or sensory deficits. Cranial nerves are intact. LABORATORY DATA: Labs showed sodium of 130, potassium 4.1, chloride 96, CO2 22, BUN 69, creatinine 0.94, calcium 9.2, glucose 101, estimated GFR is 57. Microbiology, no new findings. IMPRESSION: 1. Acute on chronic congestive heart failure, improved. 2. Chronic obstructive pulmonary disease versus interstitial lung disease per x-ray. 3. Acute vaginal bleeding, stopped. We are going to restart her Plavix at this point. 4. Coronary artery disease, status post coronary artery bypass grafting x3 with patent grafts on catheterization in June 2018. 5. History of severe aortic stenosis and status post transcatheter aortic valve replacement. 6. Chronic indwelling bladder catheter with positive urine culture, felt to be colonization. 7. Chronic atrial fibrillation with Watchman device in place. 8. Clostridium difficile colitis, on vancomycin orally. 9. Hyponatremia. 10. Insomnia, improved. PLAN: She improved tremendously. Her colitis is improved too. She still needs to complete her 2-week course of vancomycin orally for Clostridium difficile colitis. We are trying to obtain her correction facility for PT. As soon as this is done, she can be discharged on vancomycin. I am going to put her on her Plavix since her bleeding stopped and we will continue her PT and will continue her Lasix 20 mg twice a day and prednisone 20 mg once a day. Job ID: [id number]
[2019-03-15] MEDS ORDERED: Clopidogrel Bisulfate 75 MG TAB PO SCH (14:00)
--- NOTE | 2019-03-15 14:15 | PRG ---
DATE OF SERVICE: SUBJECTIVE: Josseline Garcia clinically doing well. She says she is feeling okay. She is still quite weak. I am not sure she can recover from the degree of weakness that she has now. OBJECTIVE: VITAL SIGNS: Heart rate 84, respiratory rate 16, oximetry is 92% on 2 L, blood pressure 121/74. Intake and output are recorded as +50 mL. LUNGS: Clear. HEART: Regular rhythm. ABDOMEN: Soft. Chest radiograph shows diffuse interstitial markings, but these have improved with time. I doubt she has chronic interstitial lung disease, but this will be kept in mind. Her asthma appears to be clinically stable. Her severe cardiomyopathy is the biggest issue with her deconditioning. Her prednisone dose can be decreased to 10 mg a day. She is being evaluated to go back to rehab. She is medically stable, but her intake and output and her weights will need to be monitored closely. She needs to continue to be in a negative fluid balance at the rehab with intermittent monitoring of her renal function. Job ID: [id number]
[2019-03-15] MEDS: Rosuvastatin 5 MG TAB PO SCH (20:23)
[2019-03-15] MEDS: Gabapentin 300 MG CAP PO SCH (20:24)
[2019-03-15] MEDS: Melatonin 3 MG TAB PO SCH (20:24)
[2019-03-15] MEDS: Temazepam 15 MG CAP PO SCH (20:24)
[2019-03-15] MEDS: Acetaminophen 325 MG TAB PO PRN (20:24)
[2019-03-16] MEDS: Vancomycin HCl 25 MG/ML Oral PO SCH ×4 (05:03→20:58)
[2019-03-16] MEDS: Arformoterol 15 MCG/2 ML NEB NEB SCH ×2 (06:55→21:24)
[2019-03-16 07:14] LABS: Anion Gap 13 mmol/L (10-20); BUN (Urea Nitrogen) 70 mg/dL (9.8-20.1); Calc. Creatinine Clearance 47 mL/min (70-130); Calcium 9.5 mg/dL (7.8-10.44); Carbon Dioxide 28 mmol/L (23-31); Chloride 94 mmol/L (98-107); Estimated GFR-MDRD 57; Glucose 83 mg/dL (83-110); Potassium 3.8 mmol/L (3.5-5.1); Sodium 131 mmol/L (136-145)
[2019-03-16] MEDS: Allopurinol 300 MG TAB PO SCH (08:59)
[2019-03-16] MEDS ORDERED: Clopidogrel Bisulfate 75 MG TAB PO SCH (09:00)
[2019-03-16] MEDS: predniSONE 20 MG TAB PO SCH (09:01)
[2019-03-16] MEDS: Saccharomyces boulardii 250 MG CAP PO SCH (09:03)
[2019-03-16] MEDS: Magnesium Oxide 400 MG TAB PO SCH (09:03)
[2019-03-16] MEDS: FLUoxetine HCl 20 MG CAP PO SCH (09:03)
[2019-03-16] MEDS: Furosemide 40 MG TAB PO SCH (09:04)
[2019-03-16] MEDS: Spironolactone 25 MG TAB PO SCH (09:04)
[2019-03-16] MEDS: Ubidecarenone 50 MG CAP PO SCH (09:05)
[2019-03-16] MEDS: Enoxaparin Sodium 40 MG/0.4 ML SYRINGE SC SCH (09:06)
[2019-03-16] MEDS ORDERED: Furosemide 20 MG TAB PO SCH ×2 (10:00→21:00)
[2019-03-16] MEDS ORDERED: Furosemide 40 MG TAB PO SCH (10:00)
--- NOTE | 2019-03-16 13:59 | PRG ---
DATE OF SERVICE: 03/16/2019 SUBJECTIVE: The patient was seen and examined at bedside. She is doing well. Her appetite is good. She had one soft bowel movement. OBJECTIVE: VITAL SIGNS: Blood pressure is 115/70, pulse is 80, temperature is 98.1, respiratory rate is 20, and O2 saturation is 92% on 2 L by nasal cannula. HEENT: Her head is atraumatic and normocephalic. Sclerae nonicteric. Oral mucosa is moist. NECK: Supple. LUNGS: Bilateral crackles at both bases. HEART: S1, S2 normal. No S3. No S4. Somewhat irregular. ABDOMEN: Soft and nontender. EXTREMITIES: No clubbing, cyanosis, or edema. NEUROLOGIC: She is alert and oriented x4. There are no any motor deficits. LABORATORY DATA: Labs showed sodium of 131, potassium 3.8, chloride 94, CO2 of 28, BUN is 70, creatinine 0.93, and glucose 83. IMPRESSION: 1. Acute on chronic congestive heart failure, improved. 2. Chronic obstructive pulmonary disease versus interstitial lung disease per x-ray. 3. Acute vaginal bleeding, stopped, back on Plavix. 4. Coronary artery disease, status post coronary artery bypass grafting x3 with patent grafts on catheterization in June 2018. 5. History of severe aortic stenosis, status post transcatheter aortic valve replacement. 6. Chronic indwelling bladder catheter with positive urine culture, felt to be colonization. 7. Chronic atrial fibrillation with Watchman device in place. 8. Clostridium difficile colitis, on vancomycin orally. 9. Hyponatremia, improved. 10. Insomnia, improved. PLAN: She is to continue her PT, and she was evaluated for the transfer to the rehab/[place]. She continues on her vancomycin p.o. for Clostridium difficile colitis. She was restarted on her Plavix, and I am going to decrease her prednisone to 10 mg as recommended by Dr. Momin and continue watching her closely will be recommended to the rehab staff. Job ID: [id number]
[2019-03-16] MEDS: HYDROcodone/Acetaminophen 10/325 mg Tablet PO PRN (17:45)
[2019-03-16] MEDS: Gabapentin 300 MG CAP PO SCH (20:56)
[2019-03-16] MEDS: Rosuvastatin 5 MG TAB PO SCH (20:56)
[2019-03-16] MEDS: Melatonin 3 MG TAB PO SCH (20:57)
[2019-03-16] MEDS: Acetaminophen 325 MG TAB PO PRN (20:57)
[2019-03-16] MEDS: Temazepam 15 MG CAP PO SCH (20:57)
[2019-03-17] MEDS: Vancomycin HCl 25 MG/ML Oral PO SCH ×3 (05:54→16:34)
[2019-03-17] MEDS: Arformoterol 15 MCG/2 ML NEB NEB SCH (06:19)
[2019-03-17 07:22] VITALS: TEMP 97.6
[2019-03-17] MEDS ORDERED: Clopidogrel Bisulfate 75 MG TAB PO SCH (09:00)
[2019-03-17] MEDS ORDERED: Furosemide 40 MG TAB PO SCH (09:00)
[2019-03-17] MEDS: Spironolactone 25 MG TAB PO SCH (09:26)
[2019-03-17] MEDS: Ubidecarenone 50 MG CAP PO SCH (09:27)
[2019-03-17] MEDS: Saccharomyces boulardii 250 MG CAP PO SCH (09:28)
[2019-03-17] MEDS: FLUoxetine HCl 20 MG CAP PO SCH (09:29)
[2019-03-17] MEDS: predniSONE 20 MG TAB PO SCH (09:29)
[2019-03-17] MEDS: Allopurinol 300 MG TAB PO SCH (09:31)
[2019-03-17] MEDS: Magnesium Oxide 400 MG TAB PO SCH (09:31)
[2019-03-17] MEDS: Enoxaparin Sodium 40 MG/0.4 ML SYRINGE SC SCH (09:32)
[2019-03-17 11:16] VITALS: BMI 24.7
[2019-03-17 15:53] VITALS: BP 139/73
--- NOTE | 2019-03-18 03:46 | DIS ---
DATE OF ADMISSION: 03/06/2019 DATE OF DISCHARGE: 03/17/2019 DISCHARGE DIAGNOSES: 1. Acute on chronic congestive heart failure, improved. 2. Chronic obstructive pulmonary disease versus interstitial lung disease per x-ray. 3. Acute vaginal bleeding, resolved, back on Plavix. 4. Coronary artery disease, status post coronary artery bypass grafting x3 with patent grafts on catheterization in June 2019. 5. History of severe aortic stenosis and status post transcatheter aortic valve replacement. 6. Chronic indwelling bladder catheter with positive urine culture, felt to be colonization. 7. Chronic atrial fibrillation with Watchman device in place. 8. Clostridium difficile colitis, on vancomycin for additional week. 9. Hyponatremia, improved. 10. Insomnia, improved. CONSULTANTS: 1. Dr. Abhilash Edmondson, Pulmonary Service. 2. Dr. Ramu Sheriff, Cardiology Service. 3. Dr. Kei Momin, Pulmonary Service. 4. Dr. Welch, Cardiology Service. HOSPITAL COURSE: The patient was an 83-year-old female, who was admitted to the hospital with acute respiratory failure with hypoxia, congestive heart failure exacerbation with diastolic dysfunction. The patient was brought to the emergency room. She was placed on BiPAP and normally, she is on 2 L at the half-way of O2 24/7. At the time of emergency room evaluation, her blood gases showed pH of 7.45, pCO2 was 31, pO2 was 56. Urinalysis was positive for nitrite, 7-10 wbc's and 2+ bacteria, but she has a chronic indwelling Bishop catheter. Chest x-ray showed cardiomegaly with pulmonary vascular congestion. H and H were 12 and 38. Her creatinine was 0.7. LFTs were within normal limits. Her troponin first 2 sets were negative and the third set was 0.03. BNP was 417. EKG shows sinus rhythm at 74 beats per minute. There was right bundle-branch block seen and poor RV progression. The patient was admitted to [facility] with BiPAP. She was placed on IV Lasix, nebulizers. Direct Support Specialist saw the patient and he recommended to continue regimen, diuretics, neb treatments, and start her on low dose of steroids. She had some loose bowel movements. Testing for C difficile came back positive for antigen and she was placed on oral vancomycin. In the meantime, she had positive urine culture, which was felt to be colonization and one out of two blood cultures came back contaminated. The patient was continued on the same regimen. She improved gradually. Subsequently, she had followup chest x-ray done which showed interstitial and airspace opacities in both lungs, so her Lasix dose was increased and she did well with this new regimen. Finally, she was moved out from [facility] to telemetry floor. She was continued on her vancomycin orally and her antibiotic was stopped since blood cultures were felt to be contamination and urine culture was felt to be colonization. She received PT and OT during this hospitalization and gradually, her condition improved. The followup x-ray showed bilateral pleural effusion with some mild pulmonary interstitial edema and evidence of congestive heart failure with some background of chronic pulmonary interstitial lung disease. Also, she had severe cardiomegaly. Direct Support Specialist doubted that she has chronic interstitial lung disease based on the x-ray findings. He felt that she has some component of asthma, which appeared to be clinically stable. Since she was very deconditioned, arrangements were made with custodial facility to take care for PT and OT, which was done and she is getting transferred today to [facility] for that purpose. Her blood pressure is 122/70, pulse is 71, temperature is 97.6, respirations 16, O2 saturation 94% on 1 L by nasal cannula. She is discharged in good condition with recommendation to stay on heart healthy diet. ACTIVITIES: As tolerated. MEDICATIONS: At the time of discharge: 1. Lactulose daily p.r.n. 2. Vascepa 1 g p.o. daily. 3. Ferrous sulfate 325 mg once a day. 4. Coenzyme Q10 200 mg once a day. 5. Aldactone 25 mg once a day. 6. Rosuvastatin 5 mg at bedtime. 7. MiraLAX 17 g once a day p.r.n. 8. Pantoprazole 40 mg daily. 9. Melatonin 5 mg at bedtime. 10. Magnesium oxide 400 mg once a day every morning. 11. Hydrocodone 10/325 one tablet q.4 hours p.r.n. as needed. 12. Gabapentin 300 mg at bedtime. 13. Furosemide 40 mg every morning. 14. Fluoxetine 40 mg every morning. 15. Clopidogrel 75 mg once a day. 16. Allopurinol 300 mg once a day. 17. Vancomycin 125 mg capsules every 6 hours for the next 7 days. 18. Saccharomyces boulardii 250 mg once a day. 19. Brovana 15 mcg nebulizers twice a day. FOLLOWUP: She is going to follow up with her primary in 1 week, with Dr. Vega in 1 month, and with Dr. Momin in 4 to 6 weeks. Job ID: [id number]
== END 2019-03-17 19:33 | DRG 291 ==
LOC: ERS 16:59 → IMCU/EMU 22:43 → 2NO 03-09 19:16 → T4-B 03-13 17:18
PROVIDERS: ADMIT Family Medicine; ATTEND Family Medicine
PROC: 5A09457 Assistance with Respiratory Ventilation, 24-96 Consecutive Hours, Continuous Positive Airway Pressure (ICD-10-PCS; principal; 2019-03-06)
DX: I11.0 Hypertensive heart disease with heart failure (principal); J96.21 Acute and chronic respiratory failure with hypoxia; N39.0 Urinary tract infection, site not specified; J44.1 Chronic obstructive pulmonary disease with (acute) exacerbation; A04.72 Enterocolitis due to Clostridium difficile, not specified as recurrent; E87.1 Hypo-osmolality and hyponatremia; Z66 Do not resuscitate; I50.33 Acute on chronic diastolic (congestive) heart failure; I48.2 Chronic atrial fibrillation; M10.9 Gout, unspecified; F32.9 Major depressive disorder, single episode, unspecified; E78.5 Hyperlipidemia, unspecified; I25.10 Atherosclerotic heart disease of native coronary artery without angina pectoris; B96.4 Proteus (mirabilis) (morganii) as the cause of diseases classified elsewhere; N93.9 Abnormal uterine and vaginal bleeding, unspecified; G47.00 Insomnia, unspecified; I42.9 Cardiomyopathy, unspecified; Z87.440 Personal history of urinary (tract) infections; I25.2 Old myocardial infarction; Z88.0 Allergy status to penicillin; Z88.8 Allergy status to other drugs, medicaments and biological substances; Z95.1 Presence of aortocoronary bypass graft; Z79.01 Long term (current) use of anticoagulants; Z79.899 Other long term (current) drug therapy; Z95.2 Presence of prosthetic heart valve
CPT/HCPCS: 36415; 36416; 71045; 80048; 80053; 81001; 82805; 83605; 83880; 84146; 84484; 85014; 85018; 85025; 85610; 85730; 87040; 87077; 87086; 87149; 87186; 87324; 87449; 87493; 93005; 94640; 94660; 96374; J1650; J1940; J1956; J2405; J7512; J7620

== ENCOUNTER 2019-03-25 10:42 | Inpatient (IN) | payer MEDICARE ==
[2019-03-25] MEDS ORDERED: methylPREDNISolone Sod Succ/PF 125 MG/2 ML VIAL ONE (11:15)
--- NOTE | 2019-03-25 11:34 | RAD ---
Chest AP view INDICATION: Dyspnea COMPARISON: 03/15/2019 FINDINGS: Lungs:Perihilar interstitial and airspace opacities persist but are slightly less prominent than on t he prior exam Cardiac silhouette pulmonary vasculature:Cardiomegaly and pulmonary vascular congestion persists but are less prominent Pleural spaces:Small pleural effusions persist but are less prominent. No pneumothorax Upper abdomen:Surgical clips within the upper abdomen are stable Osseous structures: Chronic osseous changes are stable Additional findings:Sternotomy changes and aortic graft material overlying the central chest are stab le. IMPRESSION: Findings of mild CHF. This is improved from a comparison dated 03/15/2019.
[2019-03-25 11:41] LABS: Bilirubin Negative (Negative); Blood, Urine Negative (Negative); Clarity Clear (Clear); Glucose, Urine (Dipstick) Normal (Negative); Leukocyte 500 Leu/uL (Negative); Nitrite 1+ (Negative); Protein, Urine (Dipstick) Negative (Neg-Trace); RBC/HPF 0-3 HPF (0-3); Squamous Epithelial 0-3 HPF (0-3); Urobilinogen Normal mg/dL (Less than 2); WBC/HPF Greater than 50 HPF (0-3)
[2019-03-25 11:46] LABS: #Eosinphils 0.2 thou/uL (0.0-0.7); #Lymphocytes 0.9 thou/uL (1.20-3.40); #Monocytes 0.7 thou/uL (0.11-0.59); #Neutrophils 8.1 thou/uL (1.40-6.50); %Basophils 0.3 % (0.0-1.0); %Eosinophils 2.4 % (0.0-10.0); %Neutrophils 81.4 % (42.0-75.0); Hemoglobin 12.9 g/dL (12.0-16.0); Mean Corpuscular HGB CONC 32.3 g/dL (32.0-36.0); Mean Corpuscular Hemoglobin 31.9 pg (27.0-31.0); Mean Corpuscular Volume 98.9 fL (78.0-98.0); Mean Platelet Volume 7.9 fL (7.4-10.4); Platelet Count 167 thou/uL (130-400); RBC Distribution Width 16.1 % (11.5-14.5); Red Blood Cell (RBC) Count 4.04 mill/uL (4.20-5.40); White Blood Cell (WBC) Count 9.9 thou/uL (4.8-10.8)
[2019-03-25 11:52] LABS: Bacteria/HPF 4+ HPF (None Seen)
[2019-03-25 12:03] LABS: ALT (SGPT) 29 U/L (8-55); AST (SGOT) 30 U/L (5-34); Albumin 3.3 g/dL (3.4-4.8); Alkaline Phosphatase 236 U/L (40-150); Anion Gap 16 mmol/L (10-20); BUN (Urea Nitrogen) 28 mg/dL (9.8-20.1); Calc. Creatinine Clearance 0 mL/min (70-130); Calcium 9.6 mg/dL (7.8-10.44); Carbon Dioxide 25 mmol/L (23-31); Chloride 100 mmol/L (98-107); Estimated GFR-MDRD 73; Globulin 2.8 g/dL (2.4-3.5); Glucose 105 mg/dL (83-110); Protein, Total 6.1 g/dL (6.0-8.3); Sodium 137 mmol/L (136-145)
[2019-03-25 12:25] LABS: CKMB 1.8 ng/mL (0-6.6)
[2019-03-25] MEDS ORDERED: cefTRIAXone\\ROCEPHIN 1 GM VIAL ONE (13:28)
[2019-03-25] MEDS ORDERED: Furosemide 40 MG/4 ML VIAL SLOW IVP SCH (16:00)
[2019-03-25 17:51] LABS: Troponin I 0.031 ng/mL (< 0.028)
[2019-03-25] MEDS ORDERED: Polyethylene Glycol 3350 17 GM Packet PO PRN (18:36)
[2019-03-25] MEDS ORDERED: Acetaminophen 325 MG TAB PO PRN (18:39)
[2019-03-25] MEDS ORDERED: HYDROcodone/Acetaminophen 10/325 mg Tablet PO SCH (21:00)
[2019-03-25] MEDS ORDERED: Famotidine 20 MG TAB PO SCH (21:00)
[2019-03-25] MEDS: Rosuvastatin 5 MG TAB PO SCH (21:22)
[2019-03-25] MEDS: Melatonin 3 MG TAB PO SCH (21:22)
[2019-03-25] MEDS: Gabapentin 300 MG CAP PO SCH (21:22)
--- NOTE | 2019-03-26 02:32 | HP ---
PRIMARY CARE PHYSICIAN: Dr. Yamilet Smith. CHIEF COMPLAINT: Shortness of breath, hypoxia. HISTORY OF PRESENT ILLNESS: Ms. Garcia is an 83-year-old female who reported to the emergency room today for acute hypoxia at the SNF unit at the [facility]. Family reports that she has been getting acutely short of breath with exertion for the past week. Today, she had an exacerbation with cough, acute onset where she could not breathe. group home reports that her O2 was 75% on her normal 2 L, which she uses. EMS picked her up, gave her an albuterol and by the time she got to the emergency room, her sats were at 95% on 2 L. She was recently discharged from this facility on 03/17/2019 after a several day stay for [id number] congestive heart failure, chronic obstructive pulmonary disease versus interstitial lung disease, coronary artery disease, history of severe aortic stenosis and status post transcatheter aortic valve replacement. She has a chronic indwelling catheter with a positive urine culture, but was felt to be colonization. She has chronic atrial fibrillation with Watchman device in place and C. diff and she reports that she has finished the p.o. vancomycin yesterday. She was seen by Dr. Edmondson, Dr. Sheriff, Dr. Momin and Dr. Welch on this last stay and felt stable enough to be transferred to the SNF unit at the [facility]. Last admission was similar, she was admitted for acute respiratory failure with hypoxia and congestive heart failure. At that time, she was on BiPAP and then subsequently downgraded to telemetry. She was followed by Cardiology and pulmonology and her condition gradually improved. On this visit in the emergency room, she was saturating at 94-96 percent on 2 L with some increased work of breathing. She was given a DuoNeb and a dose of Solu-Medrol in the emergency room and admitted for further management. LABORATORY DATA: Laboratory values for today, white blood cell count is 9.9, hemoglobin 12.9, hematocrit is 40, BUN 28, creatinine 0.76, estimated GFR is 73, alkaline phosphatase at 236, CK-MB 1.8, troponin x3, 0.49, 0.50, 0.31. BNP is 447.4, which is slightly up from her last visit at the time it was collected on 03/06/2019 at 0417 hours. Urine with nitrite positive, leukocyte esterase, white blood cell count, 4+ bacteria. This has been sent off for culture. She will be admitted to telemetry for further management. REVIEW OF SYSTEMS: Cough, shortness of breath. Still reports some diarrhea, although she does report that it has improved over the last week. She denies any abdominal pain. Denies any vomiting. She denies any chest pain. Does report some dyspnea on exertion. PAST MEDICAL HISTORY: Pertinent for diastolic congestive heart failure. She has had a myocardial infarction, atrial fib, hyperlipidemia hypertension, asthma. She has a history of aortic valve stenosis, chronic UTIs, abscess of the liver, gout, spinal stenosis, prolapse of the vaginal vault. PAST SURGICAL HISTORY: Cholecystectomy, cataract surgery, colonoscopy, appendectomy, coronary artery bypass graft surgery x3 vessels, cholecystectomy, hysterectomy, bilateral knee surgery, tonsillectomy, right foot surgery, TAVR, cardiac catheterization in June of 2018, which showed patent grafts. PERSONAL HISTORY: Denies any alcohol or drug use, smoking. Currently at the SNF Wing at the [facility]. FAMILY HISTORY: Significant for congestive heart failure in mother and coronary artery disease in her father. ALLERGIES: HYDRALAZINE, LORAZEPAM, PENICILLINS, OXAPROZIN, CIPRO, IBUPROFEN. HOME MEDICATIONS: 1. Allopurinol 300 mg p.o. q.a.m. 2. Plavix 75 mg p.o. daily. 3. Ferrous sulfate 325 mg p.o. daily. 4. Prozac 40 mg p.o. q.a.m. 5. Neurontin 300 mg p.o. at bedtime. 6. Hydrocodone 10/325 one tablet p.o. q.4 hours. 7. Vascepa 1 g p.o. daily. 8. Lactulose 10 g p.o. p.r.n. 9. Magnesium oxide 400 mg p.o. q.a.m. 10. Melatonin 5 mg p.o. at bedtime. 11. Protonix 40 mg p.o. daily. 12. MiraLAX 17 g p.o. as needed. 13. Coenzyme Q 200 mg p.o. daily. 14. Brovana 15 mcg neb b.i.d. 15. Lasix 40 mg p.o. b.i.d. 16. Crestor 5 mg p.o. at bedtime. 17. Florastor 250 mg p.o. daily. 18. Aldactone 25 mg p.o. q.a.m. 19. She was on vancomycin 125 mg p.o., but she reports that she finished her last dose yesterday. PHYSICAL EXAMINATION: VITAL SIGNS: Blood pressure 140/76, pulse is 72, respirations are 23, temp is 98.3, pO2 sats are 100% on 3 L of oxygen. CONSTITUTIONAL: The patient appears nontoxic. She is alert and oriented to person, place, and time. HEENT: Head is atraumatic and normocephalic. Eyes; eyelids are normal to inspection. Pupils are equally round and reactive to light. ENT: Mouth exam is normal. Mucous membranes are moist. NECK: Normal range of motion. Trachea is midline. RESPIRATORY/CHEST: Breath sounds are diminished to bilateral lower lobes. She is in mild respiratory distress. CARDIOVASCULAR: Regular rate and rhythm. Heart sounds are normal. ABDOMEN: Nontender. Bowel sounds are heard. BACK: Normal inspection, normal range of motion. EXTREMITIES: Upper extremity normal range of motion. Motor strength is normal. Radial pulses are normal. Lower extremity normal range of motion. Motor strength is normal. Sensation intact. Pedal pulses are normal. NEUROLOGIC: The patient is oriented to person, place, and time. Speech is normal. SKIN: Warm and dry, normal in color. There are numerous areas of ecchymosis to her bilateral arms to her chest and to her back. PLAN/ASSESSMENT: 1. Congestive heart failure exacerbation. Chest x-ray with findings of mild Congestive heart failure, although the radiologist found that chest x-ray today was actually improved from the comparison of 03/15/2019. BNP was 447, which is a slight increase from the last admission. We will gently diurese. Patient's section housekeeper is Dr. Vega. We will consult him and appreciate his recommendations. We will also order an echocardiogram. 2. Hypoxia. 3. History of either interstitial versus chronic asthma. We will consult Dr. Momin who is patient's records management engineer and will appreciate his recommendations. The patient and patient's family states that she feels better after neb treatments, which she has [facility] We will continue these neb treatments q.6 hours. 4. The patient has a nitrite positive urinary tract infection, which she has had on several admissions. The patient was given Rocephin in the emergency room. The last culture and sensitivity was resistant to Rocephin, so we will await culture. Patient's white blood cell count is 9.9. The patient is not currently febrile. Recent history of Clostridium difficile infection. The patient has finished vancomycin yesterday. The patient reports the diarrhea has improved. 5. Chronic atrial fibrillation. The patient is currently on Plavix. We will continue this. Case discussed with Dr. Sawyer who agrees with plan. Hospital course dependent on clinical findings. Job ID: [id number]
[2019-03-26 05:08] LABS: #Lymphocytes 0.6 thou/uL (1.20-3.40); #Monocytes 0.1 thou/uL (0.11-0.59); #Neutrophils 5.7 thou/uL (1.40-6.50); %Basophils 0.2 % (0.0-1.0); %Eosinophils 0.3 % (0.0-10.0); %Lymphocytes 9.4 % (21.0-51.0); %Monocytes 1.9 % (0.0-10.0); %Neutrophils 88.2 % (42.0-75.0); Hemoglobin 11.8 g/dL (12.0-16.0); Mean Corpuscular HGB CONC 31.4 g/dL (32.0-36.0); Mean Corpuscular Hemoglobin 31.1 pg (27.0-31.0); Mean Corpuscular Volume 98.9 fL (78.0-98.0); Mean Platelet Volume 7.9 fL (7.4-10.4); Platelet Count 171 thou/uL (130-400); RBC Distribution Width 16.3 % (11.5-14.5); Red Blood Cell (RBC) Count 3.78 mill/uL (4.20-5.40); White Blood Cell (WBC) Count 6.5 thou/uL (4.8-10.8)
[2019-03-26 05:31] LABS: ALT (SGPT) 22 U/L (8-55); AST (SGOT) 23 U/L (5-34); Albumin 2.9 g/dL (3.4-4.8); Alkaline Phosphatase 191 U/L (40-150); Anion Gap 14 mmol/L (10-20); BUN (Urea Nitrogen) 32 mg/dL (9.8-20.1); Bilirubin, Total 0.6 mg/dL (0.2-1.2); Calc. Creatinine Clearance 62 mL/min (70-130); Calcium 9.6 mg/dL (7.8-10.44); Carbon Dioxide 24 mmol/L (23-31); Chloride 101 mmol/L (98-107); Estimated GFR-MDRD 81; Globulin 2.9 g/dL (2.4-3.5); Glucose 121 mg/dL (83-110); Potassium 4.1 mmol/L (3.5-5.1); Protein, Total 5.8 g/dL (6.0-8.3); Sodium 135 mmol/L (136-145)
[2019-03-26] MEDS: Furosemide 40 MG/4 ML VIAL SLOW IVP SCH ×2 (05:42→13:50)
[2019-03-26] MEDS: Arformoterol 15 MCG/2 ML NEB NEB SCH ×2 (06:50→19:23)
[2019-03-26] MEDS: Magnesium Oxide 400 MG TAB PO SCH (08:18)
[2019-03-26] MEDS: Ferrous Sulfate 325 MG TAB PO SCH (08:18)
[2019-03-26] MEDS: Clopidogrel Bisulfate 75 MG TAB PO SCH (08:18)
[2019-03-26] MEDS: Spironolactone 25 MG TAB PO SCH (08:18)
[2019-03-26] MEDS: FLUoxetine HCl 20 MG CAP PO SCH (08:18)
[2019-03-26] MEDS: Allopurinol 300 MG TAB PO SCH (08:18)
[2019-03-26] MEDS ORDERED: (Icosapent Ethyl [Vascepa] 1 GM) PO SCH (09:00)
[2019-03-26 12:07] VITALS: BMI 23.7
--- NOTE | 2019-03-26 14:49 | CON ---
DATE OF CONSULTATION: 03/26/2019 CONSULTING PHYSICIAN: Hospitalist . REASON FOR CONSULTATION: Shortness of breath. HISTORY OF PRESENT ILLNESS: Ms. Garcia is an 83-year-old who is a patient of Dr. Smith. She has a history of severe aortic stenosis, congestive heart failure, and atrial fibrillation. I cannot find any true intrinsic pulmonary diagnosis other than hypoxemia secondary to the above. She was just seen in the hospital by our group last week. She apparently got up to be weighed yesterday, became hypoxic on her oxygen and did not recover when she got back in bed. However, by the time she got to the hospital, her oxygenation had returned to baseline. She has been admitted for further therapy. PAST MEDICAL HISTORY: 1. Severe aortic stenosis, which was treated with the TAVR procedure. 2. Hypertension. 3. Chronic atrial fibrillation. 4. Hyperlipidemia. 5. Obesity. 6. Obstructive sleep apnea. PAST SURGICAL HISTORY: 1. Cataract surgery. 2. Colonoscopy. 3. Appendectomy. 4. Coronary artery bypass grafting surgery. 5. TAVR. 6. Knee surgery. 7. Tonsillectomy. MEDICATIONS: Prior to admission; 1. Furosemide 40 mg daily. 2. Fluoxetine 40 mg daily. 3. Iron sulfate 325 mg daily. 4. Plavix 75 mg daily. 5. Brovana one neb twice daily. 6. Allopurinol 300 mg daily. 7. Crestor 5 mg daily. 8. Florastor 250 mg daily. 9. MiraLAX 17 g daily. 10. Protonix 40 mg daily. 11. Melatonin 5 mg nightly. 12. Magnesium oxide 400 mg daily. 13. Lactulose 10 mg daily. 14. Vascepa 1 g daily. 15. [place] 1 every 4 hours as needed. 16. Neurontin 3 mg daily. 17. Vancomycin 125 mg orally every 6 hours. 18. Coenzyme Q10 of 200 mg daily. 19. Spironolactone 25 mg every morning. Current inpatient medications were reviewed, see chart. Of note, the patient is now receiving IV Lasix in addition to her home medications. ALLERGIES: ADVIL, LORAZEPAM, PENICILLIN, OXAPROZIN, AND IBUPROFEN. SOCIAL HISTORY: Nonsmoker. Does not consume alcohol. Does not use illicit drugs. REVIEW OF SYSTEMS: Remarkable for shortness of breath, dyspnea on exertion, multiple urinary tract infections, and diarrhea. She has had no fever, chills, nausea, vomiting, hematemesis, melena, hematochezia, hematuria, or dysuria. PHYSICAL EXAMINATION: VITAL SIGNS: Temperature 97.8, pulse 77, respirations 19, O2 saturation 95% on 2 L, and blood pressure 131/61. HEENT: Pupils are reactive. Sclerae are icteric. Oropharynx is clear. NECK: No adenopathy or JVD. CARDIAC: S1 and S2. Irregularly irregular. LUNGS: She has a few inspiratory crackles. No wheezing or rhonchi. ABDOMEN: Soft and nontender to palpation. EXTREMITIES: No clubbing, cyanosis, or edema. LABORATORY DATA: Sodium 135, potassium 4.1, chloride 101, CO2 of 24, BUN 32, creatinine 0.7, and glucose 121. BNP is 447. White blood cell count 6.5, hematocrit 37.4, and platelet count 171. IMAGING DATA: Her chest x-ray shows some chronic interstitial changes bilaterally. It would be hard to say anything is acute. ASSESSMENT: Chronic hypoxemia, probably related to continued congestive heart failure from an end-stage heart. She may also have a component of interstitial lung disease. PLAN: Agree with diuretics. From Pulmonary standpoint, I do not think we can do anything other than breathing treatments and supplemental oxygen. I will notify Dr. Momin about the patient's hospitalization. The above encompassed 50 minutes of time, of that time, greater than 50% was spent with the patient and/or the patient's unit in the hospital. Job ID: [id number]
--- NOTE | 2019-03-26 15:01 | CON ---
DATE OF CONSULTATION: HISTORY OF PRESENT ILLNESS: The patient is a pleasant 83-year-old woman, who presents with recurrent dyspnea. The patient has a history of coronary artery bypass graft surgery and aortic valve replacement. The patient also recently underwent placement of a Watchman device. She has chronic atrial fibrillation. The patient has been on multiple occasions with diastolic heart failure. The patient recently was in the hospital and diuresed. She went home and had developed increasing dyspnea. She also has a history of interstitial lung disease. The patient denied having any chest discomfort. She was found to be hypoxic and admitted for further evaluation. PAST MEDICAL HISTORY: 1. Coronary artery disease. 2. Interstitial lung disease. 3. History of TAVR. 4. History of myocardial infarction. 5. Hypertension. 6. Chronic atrial fibrillation. 7. History of asthma. PAST SURGICAL HISTORY: She has had cholecystectomy, coronary artery bypass surgery, and hysterectomy. SOCIAL HISTORY: Nonsmoker. ALLERGIES: PENICILLIN. MEDICATIONS: See nursing list. REVIEW OF SYSTEMS: Ten-point system, otherwise unremarkable. PHYSICAL EXAMINATION: GENERAL: This is an obese woman, in no acute distress with a blood pressure of 131/60. NECK: Showed no jugular venous distention. LUNGS: Have coarse breath sounds bilateral. HEART: Regular rate and rhythm. Normal S1 and S2. 1/6 systolic murmur. ABDOMEN: Distended. EXTREMITIES: Showed no edema. VASCULAR: Radial pulses 2+. LABORATORY DATA: Sodium 135, potassium 4.1, chloride 101, bicarb 24, BUN 32, and creatinine 0.69. Troponin 0.031. BNP was 447. White blood cell count 6.5, hemoglobin 11.8, hematocrit is 37.4, and platelets 171. IMAGING DATA: EKG reveals her to have atrial fibrillation with a right bundle-branch block. IMPRESSION: 1. Dyspnea, multifactorial. 2. Interstitial lung disease. 3. Congestive heart failure, diastolic. 4. History of transcatheter aortic valve replacement. 5. History of coronary artery bypass surgery. 6. History of a Watchman device. 7. Hypertension. 8. Dyslipidemia. PLAN: This patient presents with recurrent dyspnea. She was markedly hypoxic until she received albuterol treatments. The patient has chronic diastolic heart failure. Her chest x-ray does not appear to have worsened. From a cardiac standpoint, we will continue on her present medical therapy. Await Pulmonary recommendations. We will follow this patient with you through her hospitalization. Job ID: [id number]
--- NOTE | 2019-03-26 18:33 | PDOC.PN ---
- Subjective Encounter Start Date: 03/26/19 Encounter Start Time: 10:00 Feeling much better. No complaints now. - Objective Resuscitation Status - Order Detail: 03/26/19 17:00 Resuscitation Status Routine Co-Sign Provider: Resuscitation Status: DNAR: NO Resuscitation Discussed with: patient Additional comments: Vital Signs & Weight: Vital Signs (12 hours) Temp Pulse Pulse Pulse Resp BP BP 03/26/19 15:33 97.9 F 77 21 H 03/26/19 14:05 86 88 130/63 143/67 H 03/26/19 13:55 72 12 03/26/19 12:02 97.9 F 72 19 03/26/19 08:17 97.8 F 77 19 03/26/19 06:50 79 18 BP Pulse Ox Pulse Ox 03/26/19 15:33 135/61 95 03/26/19 14:05 83 L 03/26/19 13:55 03/26/19 12:02 122/60 97 03/26/19 08:17 131/61 95 03/26/19 06:50 Weight Admit Weight 143 lb 6 oz Weight 142 lb 7 oz I&O: 03/25/19 03/26/19 03/27/19 06:59 06:59 06:59 Intake Total 574 500 Output Total 900 750 Balance -326 -250 Result Diagrams: 03/26/19 04:57 03/26/19 04:57 Phys Exam - Physical Examination Constitutional: NAD Bilateral rales and wheezes. Cardiovascular: RRR, no significant murmur, no rub Gastrointestinal: soft, non-tender, no distention Musculoskeletal: no edema Psychiatric: normal affect Dx/Plan (1) Acute and chronic respiratory failure with hypoxia Code(s): J96.21 - ACUTE AND CHRONIC RESPIRATORY FAILURE WITH HYPOXIA Status: Acute (2) Acute on chronic diastolic (congestive) heart failure Code(s): I50.33 - ACUTE ON CHRONIC DIASTOLIC (CONGESTIVE) HEART FAILURE Status : Acute Comment: diuresing, spironolactone added, cardiology following (3) Chronic obstructive lung disease Code(s): J44.9 - CHRONIC OBSTRUCTIVE PULMONARY DISEASE, UNSPECIFIED Status: Acute (4) S/P TAVR (transcatheter aortic valve replacement) Code(s): Z95.2 - PRESENCE OF PROSTHETIC HEART VALVE Status: Acute (5) Chronic atrial fibrillation Code(s): I48.2 - CHRONIC ATRIAL FIBRILLATION Status: Chronic (6) Chronic indwelling [place] catheter Code(s): Z96.0 - PRESENCE OF UROGENITAL IMPLANTS Status: Chronic (7) Dyslipidemia Code(s): E78.5 - HYPERLIPIDEMIA, UNSPECIFIED Status: Chronic Comment: continue statin (8) HTN (hypertension) Code(s): I10 - ESSENTIAL (PRIMARY) HYPERTENSION Status: Chronic Comment: controlled (9) Urinary retention Code(s): R33.9 - RETENTION OF URINE, UNSPECIFIED Status: Chronic Comment: pt has salinas catheter - Plan * Discussed with the patient and her family. * They understand the barriers to her ultimate improvement. * They are interested in going home with [facility]. * Continue diuresis for now. * Growing two different GN's in UCx. * Does not have fever, leukocytosis. Unclear if this is anything other than colonization.
[2019-03-26] MEDS: Rosuvastatin 5 MG TAB PO SCH (20:32)
[2019-03-26] MEDS: Gabapentin 300 MG CAP PO SCH (20:32)
[2019-03-26] MEDS: Melatonin 3 MG TAB PO SCH (20:33)
[2019-03-27] MEDS: Furosemide 40 MG/4 ML VIAL SLOW IVP SCH ×2 (05:06→13:59)
[2019-03-27 05:20] LABS: #Lymphocytes 0.7 thou/uL (1.20-3.40); #Monocytes 0.6 thou/uL (0.11-0.59); #Neutrophils 7.8 thou/uL (1.40-6.50); %Basophils 0.1 % (0.0-1.0); %Eosinophils 0.2 % (0.0-10.0); %Lymphocytes 7.6 % (21.0-51.0); %Neutrophils 85.1 % (42.0-75.0); Hemoglobin 11.5 g/dL (12.0-16.0); Mean Corpuscular HGB CONC 32.1 g/dL (32.0-36.0); Mean Corpuscular Hemoglobin 31.4 pg (27.0-31.0); Mean Corpuscular Volume 98.1 fL (78.0-98.0); Mean Platelet Volume 7.8 fL (7.4-10.4); Platelet Count 187 thou/uL (130-400); RBC Distribution Width 16.4 % (11.5-14.5); Red Blood Cell (RBC) Count 3.65 mill/uL (4.20-5.40); White Blood Cell (WBC) Count 9.2 thou/uL (4.8-10.8)
[2019-03-27 05:58] LABS: ALT (SGPT) 25 U/L (8-55); AST (SGOT) 25 U/L (5-34); Albumin 2.9 g/dL (3.4-4.8); Alkaline Phosphatase 179 U/L (40-150); Anion Gap 14 mmol/L (10-20); BUN (Urea Nitrogen) 40 mg/dL (9.8-20.1); Bilirubin, Total 0.6 mg/dL (0.2-1.2); Calc. Creatinine Clearance 63 mL/min (70-130); Calcium 9.5 mg/dL (7.8-10.44); Carbon Dioxide 25 mmol/L (23-31); Chloride 102 mmol/L (98-107); Estimated GFR-MDRD 82; Globulin 2.8 g/dL (2.4-3.5); Glucose 94 mg/dL (83-110); Potassium 3.6 mmol/L (3.5-5.1); Protein, Total 5.7 g/dL (6.0-8.3); Sodium 137 mmol/L (136-145)
[2019-03-27] MEDS: FLUoxetine HCl 20 MG CAP PO SCH (09:38)
[2019-03-27] MEDS: Magnesium Oxide 400 MG TAB PO SCH (09:38)
[2019-03-27] MEDS: Ferrous Sulfate 325 MG TAB PO SCH (09:38)
[2019-03-27] MEDS: Allopurinol 300 MG TAB PO SCH (09:38)
[2019-03-27] MEDS: Spironolactone 25 MG TAB PO SCH (09:38)
[2019-03-27] MEDS: Clopidogrel Bisulfate 75 MG TAB PO SCH (09:39)
--- NOTE | 2019-03-27 09:49 | PDOC.PALCO ---
Palliative Care Consult - Consult Details Requesting Physician: Nuzhat Lincoln Reason for Consult: goals of care, advance directives assistance, assistance with communication prognosis/disease - Pertinent HPI Presented to emergency room with shortness of breath from her residence at [facility]. History of increasing shortness of breath recently with minimal activity paired with increase in fatigue. Recent admission to hospital for exacerbation of CHF early March 2019. ROS: Breathlessness with minimal activity/adl's, cough, increase in fatigue. Negative for all other symptoms. - Social History Smoking Status: Never smoker Smoking: no tobacco exposure Alcohol Use: none Drug Use History: none Living Situation: [facility] - Allergies Allergies/Adverse Reactions: Allergies Allergy/AdvReac Type Severity Reaction Status Date / Time hydralazine Allergy Severe Short of Verified 03/25/19 16:36 Breath lorazepam [From Ativan] Allergy Severe JITTERY Verified 03/25/19 16:36 Penicillins Allergy Severe REDNESS, Verified 03/25/19 16:36 SWELLING oxaprozin [From Daypro] Allergy Intermediate JITTERY Verified 03/25/19 16:36 ciprofloxacin [From Cipro] Allergy Verified 03/25/19 16:36 ibuprofen [From Advil] AdvReac Intermediate MOUTH DRY Verified 03/25/19 16:36 - Subjective Alert and oriented, chronically ill appearing, exertion noted with minimal conversation. - Objective Vital Signs: Vital Signs - Most Recent Temp Pulse Resp BP Pulse Ox 97.8 F 78 14 137/63 95 03/27/19 08:00 03/27/19 08:15 03/27/19 08:15 03/27/19 08:00 03/27/19 08:15 Palliative Performance Scale: 60 - Physical Exam Deviation from normal: exertion with minimal activity, alert oriented HEENT: PERRLA, EOMI Respiratory: clear to auscultation bilateral Deviation from normal: diminished to lower lobes Cardiovascular: RRR Psychiatric: normal affect Skin: normal turgor - Problem List (1) Palliative care encounter Code(s): Z51.5 - ENCOUNTER FOR PALLIATIVE CARE Current Visit: Yes Status: Acute (2) Diastolic CHF, acute on chronic Code(s): I50.33 - ACUTE ON CHRONIC DIASTOLIC (CONGESTIVE) HEART FAILURE Current Visit: No Status: Acute (3) Physical deconditioning Code(s): R53.81 - OTHER MALAISE Current Visit: No Status: Acute - Plan/Recommendations Plan: Patient and family aware of diease trajectory and are desiring optimal care through hospice to prevent readmissions to the hospital but manage symptoms of heart failure and co-morbid conditions to promote optimal end of life. Annia Mendez RN notified Dr Sawyer of plan of care. [40] minutes spent on this encounter with >50% of the time in counseling and coordination of care. Thank you for this very appropriate consult.
[2019-03-27] MEDS: Arformoterol 15 MCG/2 ML NEB NEB SCH (10:31)
--- NOTE | 2019-03-27 12:21 | PRG ---
DATE OF SERVICE: 03/27/2019 SUBJECTIVE: Ms. Garcia is being evaluated for discharge. OBJECTIVE: VITAL SIGNS: She is afebrile. Heart rate is in 70s, respiratory rate is 14, oximetry is 98% on 3 L. Intake and outputs -560, was -326 yesterday. LUNGS: She still has crackles on exam bilaterally at her lung bases. HEART: Regular rhythm. ABDOMEN: Soft, nontender. EXTREMITIES: With only trace edema. LABORATORY DATA: White count is 9.2, hemoglobin 11.5, platelets 187,000. Electrolytes are normal. BUN is 40, creatinine is 0.68. IMPRESSION AND PLAN: 1. Congestive heart failure, leading to recurrent admissions. 2. Asthma, which has been relatively quiescent. She uses Brovana and budesonide twice a day at home. I think her asthma has been reasonably well controlled. I have given her prescription for DuoNeb, that she can use in between if she has some shortness of breath. She also probably needs a p.r.n. dose of Lasix or an extra 40 mg when she starts gaining weight. She probably should be followed by [facility] in [facility]. She does an excellent job of keeping people out of the hospital. She is a do not resuscitate patient. She is tentatively to go home with hospice, although I believe if we can continue to try to adjust her medications, get her to do what she needs to do at home and monitor her weights and fluid intake and output. She probably do reasonably well for a while. This admission clearly was for cardiogenic pulmonary edema. She may have some component of cardiac asthma that in my opinion is not the primary problem. I will continue to follow her as an outpatient if she wishes. I met with her son and answered all of his questions. Job ID: [id number]
[2019-03-27 13:01] VITALS: BP 144/67; TEMP 97.5
--- NOTE | 2019-03-27 23:36 | DIS ---
DATE OF ADMISSION: 03/25/2019 DATE OF DISCHARGE: 03/27/2019 DISCHARGE DIAGNOSES: 1. Acute on chronic hypoxic respiratory failure. 2. Acute on chronic diastolic heart failure. 3. Chronic obstructive pulmonary disease. 4. History of TAVR. 5. Chronic atrial fibrillation. 6. Urinary retention with chronic indwelling Bishop catheter. 7. Dyslipidemia. 8. Hypertension. 9. Bacteriuria. HISTORY OF PRESENT ILLNESS: This patient is an 83-year-old female, who had been admitted to the hospital a couple of times prior in the past month with decompensated diastolic heart failure. The patient had been at [facility] with plans for rehab. However, she had been unable to do much in the rehab because of limitations due to her shortness of breath, this progressed and her oxygen saturations were noted to be substantially lower. She was returned back to the emergency department for further evaluation. Also of note, the patient had previously been diagnosed with C difficile colitis and was just finishing her course of oral vancomycin. She had a slightly elevated BNP at 447. Chest x-ray actually had been found to be slightly better than her previous. The patient was admitted to the hospital with acute on chronic hypoxic respiratory failure. She was seen in consultation by Cardiology and Pulmonology, had a conversation with the patient and her son and they felt that at that point, they really understood the barriers and challenges to the patient really getting back to a better functional state and wanted to pursue going home with palliative care and then ultimately decided on home with hospice through [facility]. The patient's son coordinated good deal of this and worked with Case Management. Ultimately, the patient was feeling better with some aggressive diuresis and with aggressive nebulizer treatments. PHYSICAL EXAMINATION: VITAL SIGNS: On the day of discharge, temperature is 97.5, pulse 71, respirations 16, O2 saturation 97% on 3 L nasal cannula, BP 144/67. GENERAL APPEARANCE: Age-appropriate female, awake and alert. No distress. HEENT: PERRL. No OP lesions. NECK: Supple and symmetric. HEART: Irregular with 2/6 murmur at the left sternal border. LUNGS: Very diminished with diffuse rales, worse at the bases with Velcro like crackles. ABDOMEN: Soft, nontender, and nondistended. Positive bowel sounds. EXTREMITIES: No significant edema. DISPOSITION: The patient is discharged to home on home hospice with [facility]. ACTIVITY: As tolerated. DIET: She will have a heart healthy diet, low-sodium diet. MEDICATIONS: She will be on DuoNeb. Continue her other home regimen includin. Allopurinol. 2. Prozac. 3. Neurontin. 4. [place]. 5. CoQ10. 6. Protonix. 7. Magnesium. 8. MiraLAX p.r.n. 9. Plavix. 10. Melatonin. 11. Lasix. 12. Crestor. 13. Aldactone. 14. Vascepa. 15. Ferrous sulfate. 16. Lactulose. 17. Brovana. She will discontinue the Florastor and vancomycin as they are complete. FOLLOWUP: She will follow up with Yamilet Smith in [address] Vega in 2 to [address] Momin as she can make her appointment. She can return to the hospital should she have any problems prior to that time. Time spent in discharge activities, including face to face time with the patient , was 39 minutes. Job ID: [id number] [facility]
== END 2019-03-27 15:20 | disposition hospice, home (50) | DRG 291 ==
LOC: ERS 10:42 → OBSVTOIN 15:57 → 2NO 15:57
PROVIDERS: ADMIT Internal Medicine; ATTEND Internal Medicine
DX: I11.0 Hypertensive heart disease with heart failure (principal); J96.21 Acute and chronic respiratory failure with hypoxia; I50.33 Acute on chronic diastolic (congestive) heart failure; J44.9 Chronic obstructive pulmonary disease, unspecified; Z66 Do not resuscitate; I48.2 Chronic atrial fibrillation; I25.10 Atherosclerotic heart disease of native coronary artery without angina pectoris; E78.5 Hyperlipidemia, unspecified; G47.33 Obstructive sleep apnea (adult) (pediatric); R82.71 Bacteriuria; R33.9 Retention of urine, unspecified; Z79.01 Long term (current) use of anticoagulants; Z79.899 Other long term (current) drug therapy; Z79.52 Long term (current) use of systemic steroids; Z88.0 Allergy status to penicillin; Z95.2 Presence of prosthetic heart valve; I25.2 Old myocardial infarction; Z88.8 Allergy status to other drugs, medicaments and biological substances; Z88.1 Allergy status to other antibiotic agents
CPT/HCPCS: 36415; 71045; 80053; 81003; 81015; 82553; 83880; 84484; 85025; 87077; 87086; 87186; 93005; 93306; 94640; 96365; 96375; J0696; J1940; J2930; J7620